=== PATIENT | male | born 1960 | race Caucasian/White ===

== ENCOUNTER 2020-08-01 | Outpatient (REF) | payer BC, SELFPAY | END 2020-08-01 00:01 | disposition home or self-care (01) | LOC: HO.WFDLNP | PROVIDERS: Visit Provider Family Medicine | DX: Z20.822 Contact with and (suspected) exposure to COVID-19 (principal) | CPT/HCPCS: U0003 ==

== ENCOUNTER 2023-12-24 09:51 | Outpatient (AMB) | payer OTHER, SELFPAY ==
--- NOTE | 2023-12-24 09:57 | A.OFFPC_ITS ---
Vital Signs 12/24/23 10:00 Height 5 ft 7.32 in Weight 154 lb BMI 23.9 BP 138/85 Blood Pressure Location Rt radial Position Sitting Respiration 12 Pulse 66 Pulse Source Pulse Oximeter Temp 97.5 F Temp Source Temporal Artery Scan Pulse Oximetry (%) 98 Oxygen Delivery Method Room Air Intake Visit Reasons: Establish Care Intake Note: New patient visit. Trouble sleeping. Manager Floor Required: No Allergies codeine [Codeine] Adverse Reaction (Mild, Verified 12/24/23 10:15) NAUSEA & VOMITING oxycodone [From Percodan] Adverse Reaction (Mild, Verified 12/24/23 10:15) NAUSEA & VOMITING Medication List - Last Reconciled 12/24/23 by NIKOLAI FeldmanP- tadalafil 20 mg PO DAILY PRN Tobacco use date assessed: 12/24/23 Dental Screening Dental Screen Date: 12/24/23 Did you have a dental visit in the last 12 months?: No Did you have a dental problem in the last 6 months where you did not have access to dental care?: No Was dental information given to patient?: Patient has dentist HPI HPI Comments History of Present Illness Details 63 y/o M OA, erectile dysfunction, GERD, BPH, MDD, ASHWIN, HLD Family hx: has 4 children, 1 of methadone overdose Health Maintenance: Colon done at [facility] in [place], thinks done about 7-8 years ago - thinks it was normal. PSA Tdap - will get done today Specialists: [facility] Here today as new patient, no previous medical records, for CPE: Not sleeping, feels tired by 8pm. Can be awake until 4 am at times;reports sleep study done in the past but did not sleep. 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 wakes several times per night to urinate - reports was on BPH meds in the past, ran out of them. However w/o meds noticed no difference. Was ff'd by Uro in the past, reports scope done. No interest in new referral Having heart burn, treated w tums. Feels like worse when he stops working. Belching helps relieve. Has some mumbness in bilat hands. 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 right shoulder injury, improved w/ cortisone injection; would like new referral to ortho for injection. [facility] Medical History (Updated 12/24/23 @ 11:26 by Renee Quiroz [facility]) Depression Anxiety Hx of gastroesophageal reflux (GERD) Arthritis High cholesterol Family History (Updated 12/24/23 @ 10:57 by Shelbi Damon CMA) Mother HTN (hypertension) Hypercholesteremia Breast cancer Father HTN (hypertension) Hypercholesteremia Melanoma Social History (Updated 12/24/23 @ 09:59 by Shelbi Damon CMA) Housing: Other (mobile home) Patient Tobacco Use Status: Never used Tobacco e-Cigarette/Vaping Use: Never Used Second Hand Smoke Exposure: No service: No Current occupational status: employed 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 ) Vision needs: No Questionnaire PHQ-9 Over the last 2 weeks, how often have you been bothered by any of the following problems? 1. Little interest or pleasure in doing things: not at all 2. Feeling down, depressed, or hopeless: several days 3. Trouble falling or staying asleep, or sleeping too much: nearly every day 4. Feeling tired or having little energy: more than half the days 5. Poor appetite or overeating: not at all 6. Feeling bad about yourself - or that you are a failure or have let yourself or your family down: not at all 7. Trouble concentrating on things, such as reading the newspaper or watching television: several days 8. Moving or speaking so slowly that other people could have noticed. Or the opposite - being so fidgety or restless that you have been moving around a lot more than usual: not at all 9. Thoughts that you would be better off or of hurting yourself in some way: not at all Total score: 7 Depression Screening Interpretation: Positive Depression Screening Follow-up: Existing condition Depression Screening Done: Yes 38009 - PHQ-9 Billing: Yes Source: Developed by Drs. Melchor Bhatia, Zayda Rodarte, Brandon Montoya and colleagues, with an educational sal from [employer]. Thrive Questionnaire Date Thrive assessed: 12/24/23 I am a: Patient What is your living situation today?: I have a steady place to live Within the past 12 months, did the food you bought not last and you didn't have the money to get more?: Never true Within the past 12 months, did you worry whether your food would run out before you got money to buy more?: Never true Do you have trouble paying for medicines?: No Do you have trouble getting transportation to medical appointments?: No Do you have trouble paying your heating and electricity bill?: No Do you have trouble taking care of your child, family member or friend?: No Do you have trouble with day-to-day activities such as bathing, preparing meals, shopping, managing finances, etc.?: No Are you currently unemployed and looking for a job?: No Are you interested in more education?: No Please select the resources that you would like help with: None Currently or been in a relationship where the following occur: no concerns reported THRIVE Score: 0 AUDIT C Alcohol Use Questionnaire (AUDIT-C) 1. How often do you have a drink containing alcohol?: 2-3 times a week 2. How many drinks containing alcohol do you have on a typical day when you are drinking?: 1 or 2 3. How often do you have six or more drinks on one occasion?: Never Total Score: 3 Score Reviewed/Action Taken: Yes ASHWIN-7 AMB Questionnaire ASHWIN-7 Date ASHWIN - 7 assessed: 12/24/23 Feeling nervous, anxious, or on edge: 1 = Several days Not being able to stop or control worryin = Several days Worrying too much about different things: 1 = Several days Trouble relaxin = Nearly every day Being so restless that it is hard to sit still: 2 = More than half the days Becoming easily annoyed or irritable: 1 = Several days Feeling afraid as if something awful might happen: 0 = Not at all Total ASHWIN-7 score (0-4 normal; 5-9 mild; 10-14 moderate; 15-21 severe): 9 Source: Developed by Drs. Melchor Bhatia, Zayda Rodarte, Brandon Montoya and colleagues, with an educational sal from [employer]. ASHWIN-7 Assessment Billing ASHWIN-7 Assessment Tool: ASHWIN-7 Assessment 48396 Review of Systems Const Details: Constitutional: Denies fever. Skin: Denies rash. Eye: Denies eye pain. ENMT: Denies sore throat and nasal congestion. Respiratory: Denies shortness of breath and cough. Gastrointestinal: Denies nausea, vomiting or abdominal pain. Cardiovascular: Denies chest pain and syncope. Genitourinary: Denies dysuria. Musculoskeletal: Denies back pain Neurologic: Denies headaches, confusion, and weakness. Psychiatric: Denies suicidal thoughts and substance abuse. Allergy/ Immunologic: Denies impaired immunity. Physical exam (Primary Care) Vital Signs: Last Vital Signs Temp 97.5 F 12/24/23 10:00 Pulse 66 12/24/23 10:00 Resp 12 12/24/23 10:00 BP 138/85 12/24/23 10:00 Pulse Ox 98 12/24/23 10:00 Oxygen Delivery Method Room Air 12/24/23 10:00 BMI result Body Mass Index 23.9 Tobacco/Smoking Status: Tobacco use Status Tobacco use date assessed 12/24/23 12/24/23 10:04 Patient Tobacco Use Status Never used Tobacco 12/24/23 10:04 e-Cigarette/Vaping Use Never Used 12/24/23 10:04 PHQ-9: PHQ-9 Score PHQ-9: Total score 7 12/24/23 11:15 Depression Screening Interpretation: Positive Depression Screening Follow-up: Existing condition Thrive Assessment: Date of Thrive Assessment Date Thrive assessed 12/24/23 12/24/23 10:04 Currently or been in a relationship where the following occur: no concerns reported Advance Care Planning discussion: Exists, not on file Date of discussion: 12/24/23 Forms completed: Health Care Proxy Time spent: 1-15 minutes, not on file Actual minutes spent: 1 Const Other: General: Well developed, well nourished, in no acute distress. Appears stated age. Head: Normocephalic, atraumatic. Eyes: Pupils are equal, round and reactive to light and accommodation. Conjunctivae are clear. Vision grossly normal. Ears: Cerumen impaction bilat Nose: Patent, without discharge. Mouth: There are no ulcers or lesions noted. No inflammation, no post nasal drip, no plaques nor exudates. Neck: Supple, no adenopathy or thyromegaly. Lungs: Clear to auscultation bilaterally. No rales, rhonchi or wheeze noted. Good air flow in all bustamante. Heart: Regular rate and rhythm. No murmurs, click, rubs or gallops are noted. Abdomen: Bowel sounds present in all quadrants. The abdomen is soft, nontender, with no masses or organomegaly noted. No hernias are noted. Musculoskeletal: Joints are nontender, without swelling, redness, or effusions. Range of motion is observed to be normal. Pulses: Peripheral pulses are equal and palpable bilaterally. Extremities: No clubbing, cyanosis nor edema is noted. Hairless bilateral lowe r extremities with varicosities Neurologic: Gait and station normal. Cranial Nerves 2-12 intact. Motor strength grossly symmetrical and intact. No sensory loss. Balance normal. Skin: No rashes, ulcers noted. Turgor is good. Skin color is good. Hair and nails are without abnormalities. Right lower quadrant is a raised skin lesion, wart appearing, brown and pink in color, irregular borders about the size of a grape Psych: Normal eye contact, affect and mood appropriate, and normal interactions. Patient is alert and appropriate to context. Immunizations Boostrix Tdap 2.5 Lf unit-8 mcg-5 Lf/0.5 mL intramuscular syringe Performing Provider: ALON Feldman Performing Location: [facility] Administered by: Shelbi Damon CMA on 12/24/23 11:17 Dose Route Admin Location Dispensed Lot Number Expiration Date NDC Retail Specialist 0.5 mL IM Left Deltoid 0.5 mL [id number] 01/21/26 05865-510-25 Vaioni VIS Given Date VIS Provided VIS Publication Date 12/24/23 Single Vaccine 21 Eligibility Eligibility Date Funding Source Not [facility] Eligible 12/24/23 Private Assessment and Plan Assessment & Plan (1) Encounter for general adult medical examination with abnormal findings: Code(s): Z00.01 - Encounter for general adult medical examination with abnormal findings (2) Right shoulder tendinitis: Comment: refer to ortho Code(s): M77.8 - Other enthesopathies, not elsewhere classified (3) GERD (gastroesophageal reflux disease): Comment: check stool for h pylori and cbc Code(s): K21.9 - Gastro-esophageal reflux disease without esophagitis Qualifiers: Esophagitis presence: without esophagitis Qualified Code(s): K21.9 - Gastro-esophageal reflux disease without esophagitis (4) Immunization due: Code(s): Z23 - Encounter for immunization Plan: tdap today (5) MDD (major depressive disorder), recurrent episode: Comment: declined counseling and meds Code(s): F33.9 - Major depressive disorder, recurrent, unspecified Qualifiers: Major depression episode severity: moderate Qualified Code(s): F33.1 - Major depressive disorder, recurrent, moderate (6) ASHWIN (generalized anxiety disorder): Comment: declined counseling and meds Code(s): F41.1 - Generalized anxiety disorder (7) BPH associated with nocturia: Comment: check PSA was on meds in the past - did not help declined Uro referral Code(s): N40.1 - Benign prostatic hyperplasia with lower urinary tract symptoms; R35.1 - Nocturia (8) Hyperlipidemia: Comment: LDL goal < 70 check profile today, start statin at next visit Code(s): E78.5 - Hyperlipidemia, unspecified Qualifiers: Hyperlipidemia type: mixed hyperlipidemia Qualified Code(s): E78.2 - Mixed hyperlipidemia (9) Erectile dysfunction: Comment: using tadalafil with + effect declined URo referral Code(s): N52.9 - Male erectile dysfunction, unspecified Qualifiers: Erectile dysfunction type: vasculogenic Vasculogenic erectile dysfunction type: due to arterial insufficiency Qualified Code(s): N52.01 - Erectile dysfunction due to arterial insufficiency (10) PVD (peripheral vascular disease): Comment: based on physical exam, hairless BLE + varicose veins maintain BP control, start Statin at next OV, monitor skin integrity Code(s): I73.9 - Peripheral vascular disease, unspecified (11) Skin lesion: Comment: right lower quad of abd refer to Derm Code(s): L98.9 - Disorder of the skin and subcutaneous tissue, unspecified (12) Insomnia: Comment: reports sleep study done in past and negative declined meds check labs and bring back to discuss Code(s): G47.00 - Insomnia, unspecified Qualifiers: Insomnia type: psychophysiologic Qualified Code(s): F51.04 - Psychophysiologic insomnia (13) Paresthesia of both hands: Comment: check b12 levels and iron levels if normal could consider ortho referral ? CTS Code(s): R20.2 - Paresthesia of skin (14) Impacted cerumen, bilateral: Code(s): H61.23 - Impacted cerumen, bilateral Plan: debrox > lavage Orders: Orders Comprehensive Met. Panel Today G47.00 - Insomnia, unspecified, K21.9 - Gastro- esophageal reflux disease without esophagitis, R20.2 - Paresthesia of skin Hemoglobin A1c Today G47.00 - Insomnia, unspecified, K21.9 - Gastro-esophageal reflux disease without esophagitis, R20.2 - Paresthesia of skin LDL Cholesterol Direct Today G47.00 - Insomnia, unspecified, K21.9 - Gastro- esophageal reflux disease without esophagitis, R20.2 - Paresthesia of skin TSH reflex Free T4 Today G47.00 - Insomnia, unspecified, K21.9 - Gastro- esophageal reflux disease without esophagitis, R20.2 - Paresthesia of skin Microalbumin, Random (w Creat) Today G47.00 - Insomnia, unspecified, K21.9 - Gastro-esophageal reflux disease without esophagitis, R20.2 - Paresthesia of skin Vitamin B12 and Folate Today G47.00 - Insomnia, unspecified, K21.9 - Gastro- esophageal reflux disease without esophagitis, R20.2 - Paresthesia of skin Complete Blood Count no Diff Today K21.9 - Gastro-esophageal reflux disease without esophagitis Ferritin Today K21.9 - Gastro-esophageal reflux disease without esophagitis H pylori Ag Stool Today K21.9 - Gastro-esophageal reflux disease without esophagitis TDaP Immunization Today Z23 - Encounter for immunization Vitamin D 1,25 dihydroxy Today G47.00 - Insomnia, unspecified, K21.9 - Gastro- esophageal reflux disease without esophagitis, R20.2 - Paresthesia of skin PSA, Ultra Sensitive Today G47.00 - Insomnia, unspecified, K21.9 - Gastro- esophageal reflux disease without esophagitis, R20.2 - Paresthesia of skin Referrals Dermatology Referral L98.9 - Disorder of the skin and subcutaneous tissue, unspecified Orthopedics Referral M77.8 - Other enthesopathies, not elsewhere classified Medications: New tadalafil 20 mg PO DAILY PRN 30 tabs 3RF erectile dysfunction carbamide peroxide 6.5% (Debrox) 5 drps otic (ears) DAILY 5 days 15 mL 0RF BILAT EARS Patient Instructions: Return to the office in about 2 weeks for ear lavage bilat, discussion of lab results. Sooner as needed. Earwax (Cerumen Impaction) Created in Ears Earwax, called cerumen, is produced by special wax-forming glands located in the skin of the outer one-third of the ear canal. It is normal to have cerumen in ear canal as this waxy substance serves as a self-cleaning agent with protective, lubricating, and antibacterial properties. The absence of earwax may result in dry, itchy ears. Self-cleaning means there is a slow and sld educational aide movement of earwax and skin cells from the eardrum to the ear opening. Old earwax is constantly being transported, assisted by chewing and jaw motion, from the ear canal to the ear opening where, most of the time, it dries, flakes, and falls out. What Are the Symptoms of an Earwax Blockage? Symptoms of an earwax problem may include: Earache Feeling of plugged hearing or fullness in the ear Partial hearing loss that gets worse Tinnitus, ringing, or noises in the ear Itching, odor, or discharge Coughing Pain Infection What Causes Earwax Blockage? When a patient has wax blockage against the eardrum, it is often because they have been probing the ear with such things as cotton-tipped swabs, diann pins, or twisted napkin corners. These objects only push the wax in deeper in the ear canal. Why Is It Dangerous to Use Swabs to Remove Earwax? Wax blockage is one of the most common causes of hearing loss. This is often c aused by attempts to clean the ear with cotton swabs. Most cleaning attempts merely push the wax deeper into the ear canal which is shaped like an hourglass, causing a blockage at the narrowing part of the ear canal. In addition, accidental trauma to the ear drum or ear bones can occur if the swab is pushed too deep. Good intentions to keep ears clean may lessen the ability to hear. The ear is a delicate and complicated body part, including the skin of the ear canal and the eardrum. Therefore, special care should be given to this part of the body. Discontinue the habit of inserting cotton-tipped swabs or other objects into the ear canals. What Are the Treatment Options? Cleaning a working ear can be done by washing it with a soft cloth, but do not insert anything into the ear. Ideally, the ear canals should never have to be cleaned. However, that isn?t always the case. The ears should be cleaned when enough earwax gathers to cause symptoms or to prevent a needed assessment of the ear by your doctor. This condition is call cerumen impaction. Most cases of ear wax blockage respond to home treatments used to soften wax. Patients can try placing a few drops of mineral oil, baby oil, glycerin, or commercial drops in the ear. Detergent drops such as hydrogen peroxide or carbamide peroxide (available in most pharmacies) may also aid in the removal of wax. Irrigation or ear syringing is commonly used for cleaning and can be performed by a physician or at home using a commercially available irrigation kit. Common solutions used for syringing include water and saline, which should be warmed to body temperature to prevent dizziness. Ear syringing is most effective when water, saline, or wax dissolving drops are put in the ear canal 15 to 30 minutes before treatment. Caution is advised to avoid having your ears irrigated if you have diabetes, a hole in the eardrum (perforation), tube in the eardrum, skin problems such as eczema in the ear canal or a weakened immune system. >> If you have been prescribed Debrox, use as directed for 5 nights and return to the office on Day 6 for an ear lavage to remove the wax<< Manual removal of earwax is also effective. This is most often performed by an ENT (ear, nose, and throat) specialist, or sharepoint application architect, using suction or special miniature instruments, and a microscope to magnify the ear canal. Manual removal is preferred if your ear canal is narrow, the eardrum has a perforation or tube, other methods have failed, or if you have skin problems affecting the ear canal, diabetes or a weakened immune system. When Should I Talk to a Doctor? If home treatments do not help, or if wax has accumulated so much that it blocks your ear canal and your ability to hear, an ENT specialist may prescribe eardrops designed to soften wax, or they may wash or vacuum it out. Your ENT specialist may also need to remove the wax under microscopic visualization. If there is a possibility of a perforation in the eardrum, consult a physician prior to trying any [id number] remedies. Putting eardrops or other products in the ear with the presence of an eardrum perforation may cause pain or an infection. Washing water through such a hole could start an infection. If you are prone to repeated wax impaction or use hearing aids, consider seeing your doctor every six to 12 months for a checkup and routine preventive cleaning. What Questions Should I Ask My Doctor? What are the benefits and risks/side effects of different cerumen removal management options: earwax softening products, water irrigation vs. physical removal? Does cerumen accumulation vary with age, gender, familial or dietary intake? How do I manage swimming underwater with cerumen impaction? Should anything be done to the ears to prevent a buildup of earwax? How often should cerumen be removed from the ears? Are ear candles a safe option for removing earwax? Health screenings for men ages 40 to 64 You should visit your health care provider regularly, even if you feel healthy. The purpose of these visits is to: Screen for medical issues Assess your risk for future medical problems Encourage a healthy lifestyle Update vaccinations and other preventive care services Help you get to know your provider in case of an illness Information Even if you feel fine, you should still see your provider for regular checkups. These visits can help you avoid problems in the future. For example, the only way to find out if you have high blood pressure is to have it checked regularly. High blood sugar and high cholesterol level also may not have any symptoms in the early stages. Simple blood tests can check for these conditions. There are specific times when you should see your provider or receive specific health screenings. The [place] Preventive Services Task Force publishes a list of recommended screenings. Below are screening guidelines for men ages 40 to 64. BLOOD PRESSURE SCREENING Have your blood pressure checked at least once every year. Watch for blood pressure screenings in your area. Ask your provider if you can stop in to have your blood pressure checked. Ask your provider if you need your blood pressure checked more often if: You have diabetes, heart disease, kidney problems, or are overweight or have certain other health conditions You have a first-degree relative with high blood pressure You are Black Your blood pressure top number is from 120 to 129 mm Hg, or the bottom number is from 70 to 79 mm Hg If the top number is 130 mm Hg or greater or the bottom number is 80 mm Hg or greater, this is considered stage 1 hypertension. Schedule an appointment with your provider to learn how you can lower your blood pressure. Effects of age on blood pressure CHOLESTEROL SCREENING Cholesterol screening should begin at age 35 for men with no known risk factors for coronary heart disease. Repeat cholesterol screening should take place: Every 5 years for men with normal cholesterol levels More often if changes occur in lifestyle (including weight gain and diet) More often if you have diabetes, heart disease, kidney problems, or certain other conditions COLORECTAL CANCER SCREENING If you are under age 45, talk to your provider about getting screened. You may need to be screened if you have a strong family history of colon cancer or polyps. Screening may also be considered if you have risk factors such as a history of inflammatory bowel disease or polyps. If you are age 45 to 75, you should be screened for colorectal cancer. There are several screening tests available: A stool-based fecal occult blood (gFOBT) or fecal immunochemical test (FIT) every year A stool sDNA test every 1 to 3 years Flexible sigmoidoscopy every 5 years or every 10 years with stool testing FIT done every year CT colonography (virtual colonoscopy) every 5 years Colonoscopy every 10 years You may need a colonoscopy more often if you have risk factors for colorectal cancer, such as: Ulcerative colitis A personal or family history of colorectal cancer A history of growths in your colon called adenomatous polyps DENTAL EXAM Go to the dentist once or twice every year for an exam and cleaning. Your dentist will evaluate if you have a need for more frequent visits. DIABETES SCREENING All adults who do not have risk factors for diabetes should be screened starting at age 35 and repeated every 3 years. If you have other risk factors for diabetes, such as a first degree relative with diabetes, overweight or obesity, high blood pressure, prediabetes, or a history of heart disease, you may be tested more often. If you are overweight and have other risk factors, such as high blood pressure and are planning to become , screening is recommended. EYE EXAM Have an eye exam every 2 to 4 years ages 40 to 54 and every 1 to 3 years ages 55 to 64. Your provider may recommend more frequent eye exams if you have vision problems or glaucoma risk. Have an eye exam that includes an examination of your retina (back of your eye) at least every year if you have diabetes. IMMUNIZATIONS Commonly needed vaccines include: Flu shot: get one every year COVID-19 vaccine: ask your provider what is best for you Tetanus-diphtheria and acellular pertussis (Tdap) vaccine: have as one of your tetanus-diphtheria vaccines if you did not receive it as an adolescent Tetanus-diphtheria: have a booster (or Tdap) every 10 years Varicella vaccine: receive 2 doses if you never had chickenpox or the varicella vaccine and were born in 1980 or after Hepatitis B vaccine: receive 2, 3, or 4 doses, depending on your exact circumstances, if you did not receive these as a child or adolescent, until age 59 Shingles (herpes zoster) vaccine: at or after age 50 Ask your provider if you should receive other immunizations, especially if you have certain medical conditions, such as diabetes or are at increased risk for some diseases such as pneumonia. INFECTIOUS DISEASE SCREENING Screening for hepatitis C: all adults ages 18 to 79 should get a one-time test for hepatitis C. Screening for human immunodeficiency virus (HIV): all people ages 15 to 65 should get a one-time test for HIV. Depending on your lifestyle and medical history, you may need to be screened for infections such as syphilis, chlamydia, and other infections. LUNG CANCER SCREENING You should have an annual screening for lung cancer with low-dose computed tomography (LDCT) if: You are age 50 to 80 years AND You have a 20 pack-year smoking history AND You currently smoke or have quit within the past 15 years OSTEOPOROSIS SCREENING If you are age 50 to 64 and have risk factors for osteoporosis, you should discuss screening with your provider. Risk factors can include long-term steroid use, low body weight, smoking, heavy alcohol use, having a fracture after age 50, or a family history of hip fracture or osteoporosis. Osteoporosis PHYSICAL EXAM All adults should visit their provider from time to time, even if they are healthy. The purpose of these visits is to: Screen for diseases Assess risk of future medical problems Encourage a healthy lifestyle Update vaccinations and other preventive care services Maintain a relationship with a provider in case of an illness Your height, weight, and body mass index (BMI) should be checked at every exam. During your exam, your provider may ask you about: Depression and anxiety Diet and exercise Alcohol and tobacco use Safety, such as use of seat belts and smoke detectors Your medicines and risk for interactions PROSTATE CANCER SCREENING If you're 55 through 69 years old, before having the test, talk to your provider about the pros and cons of having a PSA test. Ask about: Whether screening decreases your chance of dying from prostate cancer. Whether there is any harm from prostate cancer screening, such as side effects from testing or overtreatment of cancer when discovered. Whether you have a higher risk of prostate cancer than others. If you are age 55 or younger, screening is not generally recommended. You should talk with your provider about if you have a higher risk for prostate cancer. Risk factors include: Having a family history of prostate cancer (especially a brother or father) Being If you choose to be tested, the PSA blood test is repeated over time (yearly or less often), though the best frequency is not known. Prostate examinations are no longer routinely done on men with no symptoms. Prostate cancer SKIN EXAM Your provider may check your skin for signs of skin cancer, especially if you're at high risk. People at high risk include those who have had skin cancer before, have close relatives with skin cancer, or have a weakened immune system. TESTICULAR EXAM The [place] Preventive Services Task Force (USPSTF) now recommends against performing testicular self-exams. Doing testicular self-exams has been shown to have little to no benefit. Review Patient declined Colonoscopy: 12/24/23 Patient declined Colon Cancer Screen Lab: 12/24/23 Coding Level of Care Code New Pt Prev Care 40-64y(74274) Diagnoses Encounter for general adult medical examination with abnormal findings Z00.01 Right shoulder tendinitis M77.8 Gastroesophageal reflux disease without esophagitis K21.9 Esophagitis presence: without esophagitis Immunization due Z23 Moderate episode of recurrent major depressive disorder F33.1 Major depression episode severity: moderate ASHWIN (generalized anxiety disorder) F41.1 BPH associated with nocturia N40.1; R35.1 Mixed hyperlipidemia E78.2 Hyperlipidemia type: mixed hyperlipidemia Erectile dysfunction due to arterial insufficiency N52.01 Erectile dysfunction type: vasculogenic Vasculogenic erectile dysfunction type: due to arterial insufficiency PVD (peripheral vascular disease) I73.9 Skin lesion L98.9 Psychophysiological insomnia F51.04 Insomnia type: psychophysiologic Paresthesia of both hands R20.2 Impacted cerumen, bilateral H61.23 Additional Codes ASHWIN-7 Assessment Billing - ASHWIN-7 Assessment Tool: ASHWIN-7 Assessment [id number] ([id number]) Vital Signs *Quality* - Advance Care Planning discussion: Exists, not on file ([id number]) Vital Signs *Quality* - Time spent: 1-15 minutes, not on file ([id number])
[2023-12-24 10:00] VITALS: BP 138/85; PULSE 66; RESP 12; TEMP 36.4; O2SAT 98; BMI 23.9
== END 2023-12-24 10:36 | disposition home or self-care (01) ==
PROVIDERS: PCP Hospitalist; Visit Provider Nurse Practitioner Family
DX: Z00.01 Encounter for general adult medical examination with abnormal findings (principal); N52.01 Erectile dysfunction due to arterial insufficiency; R35.1 Nocturia; F33.1 Major depressive disorder, recurrent, moderate; Z23 Encounter for immunization; I73.9 Peripheral vascular disease, unspecified; M77.8 Other enthesopathies, not elsewhere classified; K21.9 Gastro-esophageal reflux disease without esophagitis; E78.2 Mixed hyperlipidemia; F41.1 Generalized anxiety disorder; N40.1 Benign prostatic hyperplasia with lower urinary tract symptoms; L98.9 Disorder of the skin and subcutaneous tissue, unspecified
CPT/HCPCS: 1124F; 90471; 90715; 99204; 99386

== ENCOUNTER 2023-12-24 10:43 | Outpatient (REF) | payer OTHER, SELFPAY ==
[2023-12-24 14:41] LABS: Hematocrit 46.6 % (42.0-52.0); Hemoglobin 15.8 g/dl (14.0-18.0); Mean Corpuscular HGB Conc 33.9 g/dl (31.0-36.0); Mean Corpuscular Hemoglobin 31.3 pg (27.0-33.0); Mean Corpuscular Volume 92.5 fL (80.0-98.0); Mean Platelet Volume 10.6 fL (9.4-12.4); Platelet Count 249 X10*3/uL (160-400); Red Blood Count 5.04 X10*6/uL (4.60-5.80); Red Cell Distribution Width 13.8 % (11.0-16.0); White Blood Count 5.1 X10*3/uL (4.8-10.8)
[2023-12-24 14:51] LABS: Estimated Average Glucose 100 mg/dL; Hemoglobin A1C 126.5441 umol/L; Hemoglobin A1c % 5.1 % (<6.0)
[2023-12-24 15:17] LABS: Alanine Aminotransferase 26 U/L (0-40); Albumin Level 4.1 g/dL (3.5-5.0); Alkaline Phosphatase 111 U/L (39-117); Anion Gap 12 (12-20); Aspartate Amino Transferase 22 U/L (5-37); Bilirubin Total 0.6 mg/dL (0.0-1.0); Blood Urea Nitrogen 18 mg/dL (9-16); Calcium 9.6 mg/dL (8.4-10.2); Carbon Dioxide 25 mmol/L (22-29); Chloride 108 mmol/L (96-108); Estimated Glomerular Filt Rate > 60; Glucose Random 89 mg/dL (60-115); Potassium 4.1 mmol/L (3.3-5.1); Sodium 141 mmol/L (135-145); Total Protein 7.2 g/dL (6.5-8.0)
[2023-12-24 15:29] LABS: Ferritin 128 ng/mL (20-250); TSH reflex Free T4 1.88 uIU/mL (0.32-4.0)
[2023-12-24 15:40] LABS: Folate 13.1 ng/mL (> or = 4.0); Vitamin B12 612 pg/mL (200-900)
[2023-12-24 15:46] LABS: Creatinine Urine 120.79 mg/dL; Microalbumin Urine < 5.0 mg/L
[2024-01-03 11:19] LABS: LDL Cholesterol Direct 143; Vit D (1,25-Dihydroxy) Total 53
[2024-01-03 11:20] LABS: VITAMIN D (1,25 OH) D3 53; Vitamin D (1,25 OH) D2 <8
[2024-01-03 11:21] LABS: PSA, Ultra Sensitive 0.52
== END 2023-12-24 10:44 | disposition home or self-care (01) ==
LOC: HO.WFDLDS 10:43
PROVIDERS: Visit Provider Nurse Practitioner Family
DX: K21.9 Gastro-esophageal reflux disease without esophagitis (principal); R20.2 Paresthesia of skin; G47.00 Insomnia, unspecified
CPT/HCPCS: 36415; 80053; 82043; 82570; 82607; 82652; 82728; 82746; 83036; 83721; 84153; 84443; 85027

== ENCOUNTER 2024-01-07 08:06 | Outpatient (AMB) | payer OTHER, SELFPAY ==
--- NOTE | 2024-01-07 08:14 | MHC.OFFVIS ---
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 The patient states that his pain has gotten worse over the last 3-4 years in spite of continued non operative treatments. He has had 3 cortisone injections given into his right shoulder which gave him only temporary relief. He reports weakness when lifting his right hand above shoulder height. Has done formal physical therapy as well which gave him minimal relief. Has failed the last 6 weeks of conservative treatment. He has tried ibuprofen and Tylenol which gave him minimal relief. Allergies codeine [Codeine] Adverse Reaction (Mild, Verified 01/07/24 08:18) NAUSEA & VOMITING oxycodone [From Percodan] Adverse Reaction (Mild, Verified 01/07/24 08:18) NAUSEA & VOMITING Medication List - Last Reconciled 01/07/24 by Anderson Hernandez MD carbamide peroxide 6.5% (Debrox) 5 drps otic (ears) DAILY 5 days meloxicam 15 mg PO DAILY PRN tadalafil 20 mg PO DAILY PRN PFSH Medical History (Updated 01/03/24 @ 12:42 by Anderson Hernandez MD) Depression Anxiety Hx of gastroesophageal reflux (GERD) Arthritis High cholesterol Family History (Updated 12/24/23 @ 10:57 by Shelbi Damon CMA) Mother HTN (hypertension) Hypercholesteremia Breast cancer Father HTN (hypertension) Hypercholesteremia Melanoma Social History (Updated 12/24/23 @ 09:59 by Shelbi Damon CMA) Housing: Other (mobile home) Patient Tobacco Use Status: Never used Tobacco e-Cigarette/Vaping Use: Never Used Second Hand Smoke Exposure: No service: No Current occupational status: employed 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 ) Vision needs: No Physical Exam Vital Signs: BMI result Body Mass Index 24.1 Const Other: Well-nourished well-developed very friendly male awake alert and oriented x3 in no acute distress Extrem Other: Bilateral upper extremity examination shows good capillary refill, no skin lesions noted, normal sensation light touch Right shoulder examination shows slightly decreased range of motion when compared to his left shoulder, 4/5 strength with supraspinatus testing, positive impingement signs, tenderness over his acromioclavicular joint, no instability Results Reviewed Results Reviewed: X-rays of the patient's right shoulder show severe acromioclavicular joint narrowing, a type 3 acromion, no acute bony abnormalities Assessment & Plan Assessment & Plan (1) Right shoulder pain: Code(s): M25.511 - Pain in right shoulder Category: Medical Plan Mr. Plunkett presents with progressively worsening right shoulder pain and weakness due to impingement syndrome and possible full-thickness rotator cuff tearing. Thus, I will send the patient for an MRI of his right shoulder for further evaluation. I will see him back once the MRI is completed to discuss the findings and treatment options. He will continue with his range of motion exercises in the meantime. Feel free to call me at any time should questions regarding his orthopedic management arise. Thank you very much for asking me to see this very friendly gentleman. I spent 21 minutes in reviewing the patient's records and imaging studies, seeing the patient and documenting in the medical record. Orders: Orders XR shoulder RT min 2V Today M25.511 - Pain in right shoulder MR shoulder RT wo con Today M25.511 - Pain in right shoulder Medications: New meloxicam 15 mg PO DAILY PRN 30 tabs 2RF pain Coding Level of Care Code New Pt Level 3 (04024) Diagnoses Right shoulder pain M25.511
[2024-01-07 08:15] VITALS: BMI 24.1
== END 2024-01-07 08:30 | disposition home or self-care (01) ==
PROVIDERS: PCP Hospitalist; Visit Provider Orthopaedic Surgery
DX: M25.511 Pain in right shoulder (principal)
CPT/HCPCS: 99203

== ENCOUNTER 2024-01-07 10:21 | Outpatient (REF) | payer OTHER, SELFPAY ==
--- NOTE | ~2024-01-07 | XR_ITS ---
EXAMINATION: XR SHOULDER, RIGHT CLINICAL INFORMATION: Pain in right shoulder COMPARISON: None available. TECHNIQUE: AP and five-view of the right shoulder. FINDINGS: The bones and soft tissues are normal. No fracture. Glenohumeral and acromioclavicular alignment is anatomic with normal joint space. No abnormal soft tissue calcifications. XR/XR shoulder RT min 2V IMPRESSION: Normal right shoulder.
== END 2024-01-07 10:22 | disposition home or self-care (01) ==
LOC: HO.HOSX 10:21
PROVIDERS: Visit Provider Orthopaedic Surgery
DX: M75.41 Impingement syndrome of right shoulder (principal)
CPT/HCPCS: 73030; 99202

== ENCOUNTER 2024-01-08 09:08 | Outpatient (AMB) | payer OTHER, SELFPAY ==
--- NOTE | 2024-01-08 09:21 | A.OFFPC_ITS ---
Vital Signs 01/08/24 09:23 Weight 198 lb BP 118/66 Blood Pressure Location Lt brachial Position Sitting Pulse 62 Pulse Source Pulse Oximeter Pulse Oximetry (%) 95 Oxygen Delivery Method Room Air Intake Visit Reasons: 2 weeks 30 min bilat ear lavage Intake Note: pt here for bilat ear lavage. Cfo Controller Required: No Allergies codeine [Codeine] Adverse Reaction (Mild, Verified 01/08/24 09:46) NAUSEA & VOMITING oxycodone [From Percodan] Adverse Reaction (Mild, Verified 01/08/24 09:46) NAUSEA & VOMITING Medication List - Last Reconciled 01/08/24 by GABRIEL Feldman-CLARKE carbamide peroxide 6.5% (Debrox) 5 drps otic (ears) DAILY 5 days meloxicam 15 mg PO DAILY PRN tadalafil 20 mg PO DAILY PRN Tobacco use date assessed: 12/24/23 Dental Screening Dental Screen Date: 12/24/23 HPI HPI Comments History of Present Illness Details 63 y/o M OA, erectile dysfunction, GERD, BPH, MDD, ASHWIN, HLD, PVD Family hx: has 4 children, 1 of methadone overdose Health Maintenance: Colon done at [facility] in [place], thinks done about 7-8 years ago - thinks it was normal. PSA 12/2023 WNL Tdap - 11/2023 Specialists: [facility] Here today for bilat ear lavage and to follow up on his labs. Since this office visit he has been able to use Debrox in both ears. Review of his labs done 12/24/2023 are normal with the exception of an elevated LDL at 143. Reports that he has not been able to tolerate statins in the past. Unsure if he is ever tried Zetia however he is willing to try this today. [facility] Medical History (Updated 01/08/24 @ 12:57 by ALON Feldman) Depression Anxiety Hx of gastroesophageal reflux (GERD) Arthritis High cholesterol Family History (Updated 12/24/23 @ 10:57 by Shelbi Damon CMA) Mother HTN (hypertension) Hypercholesteremia Breast cancer Father HTN (hypertension) Hypercholesteremia Melanoma Social History (Updated 12/24/23 @ 09:59 by Shelbi Damon CMA) Housing: Other (mobile home) Patient Tobacco Use Status: Never used Tobacco e-Cigarette/Vaping Use: Never Used Second Hand Smoke Exposure: No service: No Current occupational status: employed Current occupation: [employer] Current occupational exposures/hazards: No Cognitive needs: No Hearing needs: Yes (can see close. ) Vision needs: No Questionnaire Thrive Questionnaire Date Thrive assessed: 12/24/23 ASHWIN-7 AMB Questionnaire ASHWIN-7 Date ASHWIN - 7 assessed: 12/24/23 Source: Developed by Drs. Melchor Bhatia, Zayda Rodarte, Brandon Montoya and colleagues, with an educational sal from [employer]. Review of Systems Const All systems reviewed & are unremarkable except as noted in HPI and below Physical exam (Primary Care) Vital Signs: Last Vital Signs Pulse 62 01/08/24 09:23 BP 118/66 01/08/24 09:23 Pulse Ox 95 01/08/24 09:23 Oxygen Delivery Method Room Air 01/08/24 09:23 Tobacco/Smoking Status: Tobacco use Status Tobacco use date assessed 12/24/23 01/08/24 09:25 Patient Tobacco Use Status Never used Tobacco 01/08/24 09:25 e-Cigarette/Vaping Use Never Used 01/08/24 09:25 Thrive Assessment: Date of Thrive Assessment Date Thrive assessed 12/24/23 01/08/24 09:25 Const Other: Awake alert oriented TM intact and clear bilat status post cerumen removal Bilateral lower extremities hairless Office Procedures Cerumen Removal From which ear canal was the cerumen removed: bilateral Removal: irrigation Notes: patient tolerated procedure well, no complications and ear canal clear [id number] Irrigation/Lavage Assessment and Plan Assessment & Plan (1) Hyperlipidemia: Comment: LDL goal < 70 Code(s): E78.5 - Hyperlipidemia, unspecified Qualifiers: Hyperlipidemia type: mixed hyperlipidemia Qualified Code(s): E78.2 - Mixed hyperlipidemia (2) Impacted cerumen, bilateral: Code(s): H61.23 - Impacted cerumen, bilateral (3) PVD (peripheral vascular disease): Comment: based on physical exam, hairless BLE + varicose veins maintain BP control, start zetia [nontolerant of statin] at next OV, monitor skin integrity Code(s): I73.9 - Peripheral vascular disease, unspecified Plan Total time spent caring for the patient today was 40 minutes. This includes time spent before the visit reviewing the chart, time spent during the visit, and time spent after the visit on documentation This note is constructed using voice recognition software. While every effort has been made to ensure accuracy in log haul operator, still errors may have been included Sometimes, these errors may affect the content or meaning of the given sentence . Orders: Orders Lipid Panel 03/22/24 E78.2 - Mixed hyperlipidemia, I73.9 - Peripheral vascular disease, unspecified Comprehensive Met. Panel 03/22/24 E78.2 - Mixed hyperlipidemia, I73.9 - Peripheral vascular disease, unspecified Medications: New ezetimibe (Zetia) 10 mg PO DAILY 90 tabs 0RF Patient Instructions: Started Zetia 10 mg daily. Repeat fasting labs in 3 months. LDL goal less than 70 Status post cerumen impaction successful. Return to the office in 3 months to follow up on cholesterol. Sooner as needed. Coding Level of Care Code Est Pt Level 5 (02383) Diagnoses Mixed hyperlipidemia E78.2 Hyperlipidemia type: mixed hyperlipidemia Impacted cerumen, bilateral H61.23 PVD (peripheral vascular disease) I73.9 CPT Codes Office Procedure - CPT: 76722-Irl Irrigation/Lavage ([id number])
[2024-01-08 09:23] VITALS: BP 118/66; PULSE 62; O2SAT 95
== END 2024-01-08 10:03 | disposition home or self-care (01) ==
PROVIDERS: PCP Nurse Practitioner Family; Visit Provider Nurse Practitioner Family
DX: E78.2 Mixed hyperlipidemia (principal); H61.23 Impacted cerumen, bilateral; I73.9 Peripheral vascular disease, unspecified
CPT/HCPCS: 69209; 99215

== ENCOUNTER 2024-03-12 10:10 | Outpatient (AMB) | payer OTHER, SELFPAY ==
--- NOTE | 2024-03-12 10:15 | MHC.OFFVIS ---
Vital Signs 03/12/24 10:17 Height 5 ft 8 in Weight 198 lb BMI 30.1 Intake Visit Reasons: Bilateral hand numbness, Right shoulder pain, Neck pain Intake Note: Tino is a 63 year old male who presents with complaints of progressively worsening neck pain which radiates down both of his arms as well as right shoulder pain and numbness and tingling in both of his hands. The patient states that his symptoms have gotten worse over the last few years. He has failed the last 3 months of conservative treatment which has included a home exercise program as well as Tylenol and anti-inflammatory medicines. The patient reports mild weakness when lifting his right hand above shoulder height. The patient states that at night he has difficulty sleeping because both of his hands are ?completely numb?. He has done physical therapy which aggravated his symptoms. He did have a cortisone injection given into his right shoulder several years ago which gave him temporary relief. Allergies codeine [Codeine] Adverse Reaction (Mild, Verified 03/12/24 10:22) NAUSEA & VOMITING oxycodone [From Percodan] Adverse Reaction (Mild, Verified 03/12/24 10:22) NAUSEA & VOMITING Medication List - Last Reconciled 03/12/24 by Anderson Hernandez MD carbamide peroxide 6.5% (Debrox) 5 drps otic (ears) DAILY 5 days ezetimibe (Zetia) 10 mg PO DAILY meloxicam 15 mg PO DAILY PRN tadalafil 20 mg PO DAILY PRN PFSH Medical History Depression Anxiety Hx of gastroesophageal reflux (GERD) Arthritis High cholesterol Family History Mother HTN (hypertension) Hypercholesteremia Breast cancer Father HTN (hypertension) Hypercholesteremia Melanoma Social History Housing: Other (mobile home) Patient Tobacco Use Status: Never used Tobacco e-Cigarette/Vaping Use: Never Used Second Hand Smoke Exposure: No service: No Current occupational status: employed 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 ) Vision needs: No Physical Exam Vital Signs: BMI result Body Mass Index 30.1 Const Other: Well-nourished well-developed very friendly male awake alert and oriented x3 in no acute distress Neck Other: Cervical spine examination shows bilateral paraspinal muscle tenderness, positive Spurling's test, 4/5 strength with testing of his bilateral biceps and wrist extensors Extrem Other: Right shoulder examination shows decreased range of motion when compared to his left shoulder, 4+ out of 5 strength with supraspinatus testing, positive impingement signs, tenderness over his acromioclavicular joint, no instability Bilateral wrist examination shows positive Tinel's test over his carpal tunnels, mild to moderate thenar muscle wasting, decreased sensation to light touch along his median nerve distributions Office Procedures Joint Injection/Aspiration Joint Injection/Aspiration Primary Site: right shoulder Prep: site was prepped using aseptic technique Injected: 40 mg of, DepoMedrol and 1% plain lidocaine Procedure: The patient tolerated the procedure well Coding 12449 - Large joint Procedure code (CPT) selection complete Results Reviewed Results Reviewed: X-rays of the patient's right shoulder show severe acromioclavicular joint narrowing, a type 3 acromion, no acute bony abnormalities Assessment & Plan Assessment & Plan (1) Bilateral carpal tunnel syndrome: Code(s): G56.03 - Carpal tunnel syndrome, bilateral upper limbs Category: Medical (2) Neck pain, bilateral: Code(s): M54.2 - Cervicalgia Category: Medical Plan: Mr. Plunkett presents with progressively worsening neck pain which radiates into both of his arms as well as bilateral upper extremity weakness most likely due to cervical stenosis or a disc herniation. Thus, I will send the patient for an MRI of his cervical spine for further evaluation. I will contact him by phone once the MRI results are available. The patient also has right shoulder pain and weakness due to impingement syndrome and possible rotator cuff tearing. The risks and benefits of a right shoulder cortisone injection were discussed at length with the patient. The patient wished to proceed. He tolerated the injection well. He will continue with his range of motion exercises to prevent stiffness. The patient also has symptoms consistent with bilateral carpal tunnel syndrome. Thus, I will send him for EMG evaluation of both of his upper extremities for further evaluation. Feel free to call me at any time should questions regarding his orthopedic management arise. (3) Bilateral hand numbness: Code(s): R20.0 - Anesthesia of skin (4) Right shoulder pain: Code(s): M25.511 - Pain in right shoulder Category: Medical (5) Impingement of right shoulder: Code(s): M25.811 - Other specified joint disorders, right shoulder Category: Medical Plan I spent 21 minutes in reviewing the patient's records and imaging studies, seeing the patient and documenting in the medical record. Orders: Orders NE electromyogram (EMG) Today G56.03 - Carpal tunnel syndrome, bilateral upper limbs MR cervical spine wo con Today M54.2 - Cervicalgia AMB Joint Injection/Aspiration Today M25.811 - Other specified joint disorders, right shoulder Coding Level of Care Code Est Pt Level 3 (93794) Diagnoses Bilateral carpal tunnel syndrome G56.03 Neck pain, bilateral M54.2 Bilateral hand numbness R20.0 Right shoulder pain M25.511 Impingement of right shoulder M25.811 CPT Codes Coding - 80771 Large joint: 43802 - Large joint ([id number])
[2024-03-12 10:17] VITALS: BMI 30.1
== END 2024-03-12 10:44 | disposition home or self-care (01) ==
PROVIDERS: PCP Nurse Practitioner Family; Visit Provider Orthopaedic Surgery
DX: G56.03 Carpal tunnel syndrome, bilateral upper limbs (principal); M54.2 Cervicalgia; R20.0 Anesthesia of skin; M25.511 Pain in right shoulder; M25.811 Other specified joint disorders, right shoulder
CPT/HCPCS: 20610; 99213

== ENCOUNTER → 2024-03-12 10:10 | Outpatient (BNVA) | payer OTHER, SELFPAY | PROVIDERS: PCP Nurse Practitioner Family; Visit Provider Orthopaedic Surgery | DX: M25.511 Pain in right shoulder (principal); M25.811 Other specified joint disorders, right shoulder; M54.2 Cervicalgia; G56.03 Carpal tunnel syndrome, bilateral upper limbs | CPT/HCPCS: 20610; 99212; J1010 ==

== ENCOUNTER 2024-04-07 07:54 | Outpatient (REF) | payer OTHER, SELFPAY ==
[2024-04-07 11:59] LABS: Alanine Aminotransferase 28 U/L (0-40); Albumin Level 4.1 g/dL (3.5-5.0); Alkaline Phosphatase 96 U/L (39-117); Anion Gap 12 (12-20); Aspartate Amino Transferase 27 U/L (5-37); Bilirubin Total 0.8 mg/dL (0.0-1.0); Blood Urea Nitrogen 19 mg/dL (9-16); Calcium 9.6 mg/dL (8.4-10.2); Carbon Dioxide 27 mmol/L (22-29); Chloride 108 mmol/L (96-108); Cholesterol 172 mg/dL (<200); Estimated Glomerular Filt Rate > 60; Glucose Random 99 mg/dL (60-115); HDL Cholesterol 65 mg/dL (>40); LDL Cholesterol Calculated 94 mg/dL (<100); Potassium 4.3 mmol/L (3.3-5.1); Sodium 143 mmol/L (135-145); Total Protein 7.1 g/dL (6.5-8.0); Triglycerides 68 mg/dL (<150)
== END 2024-04-07 07:55 | disposition home or self-care (01) ==
LOC: HO.WFDLDS 07:54
PROVIDERS: Visit Provider Nurse Practitioner Family
DX: I73.9 Peripheral vascular disease, unspecified (principal); E78.2 Mixed hyperlipidemia
CPT/HCPCS: 36415; 80053; 80061

== ENCOUNTER 2024-04-09 14:52 | Outpatient (REF) | payer OTHER, SELFPAY ==
--- NOTE | 2024-04-09 14:55 | EMG_ITS ---
Chief complaint: Numbness both hands especially at night Reason for referral: Evaluate for Carpal Tunnel Syndrome Referred by: Dr. Hernandez Procedure done: Bilateral upper extremities NCS/EMG Precautions and/or limitations: None The limb temperature was monitored continuously and remained between 32-36 degrees C during the performance of the NCS. Nerve Conduction Studies Anti Sensory Summary Table ?Stim Site NR Onset (ms) Norm Onset (ms) Peak (ms) Norm Peak (ms) O-P Amp (?V) Norm O-P Amp Site1 Site2 Delta-0 (ms) Dist (cm) Rogelio (m/s) Norm Rogelio (m/s) Left Median Anti Sensory (2nd Digit) Wrist NR <3.6 >10 Wrist 2nd Digit 14.0 Right Median Anti Sensory (2nd Digit) Wrist NR <3.6 >10 Wrist 2nd Digit 14.0 Right Radial Anti Sensory (Thumb) Forearm ? 1.2 1.9 <3.1 16.4 Forearm Thumb 1.2 0.0 Left Ulnar Anti Sensory (5th Digit) Wrist ? 2.3 2.9 <3.7 6.3 >15.0 Wrist 5th Digit 2.3 14.0 61 Right Ulnar Anti Sensory (5th Digit) Wrist ? 1.9 2.9 <3.7 7.6 >15.0 Wrist 5th Digit 1.9 14.0 74 Motor Summary Table ?Stim Site NR Onset (ms) Norm Onset (ms) O-P Amp (mV) Norm O-P Amp iAmp (mV) Amp (1st) (%) Site1 Site2 Delta-0 (ms) Dist (cm) Rogelio (m/s) Norm Rogelio (m/s) Left Median Motor (Abd Poll Brev) Wrist ? 7.9 <3.9 3.9 >4.5 4.5 100.0 Elbow Wrist 4.6 23.5 51 >45 Elbow ? 12.5 3.8 4.6 97.4 Right Median Motor (Abd Poll Brev) Wrist ? 5.7 <3.9 4.4 >4.5 5.0 100.0 Elbow Wrist 4.4 23.5 53 >45 Elbow ? 10.1 3.6 4.1 81.8 Left Ulnar Motor (Abd Dig Minimi) Wrist ? 2.5 <3.0 8.7 >5 11.2 100.0 B Elbow Wrist 3.5 21.0 60 >45 B Elbow ? 6.0 7.8 10.1 89.7 A Elbow B Elbow 1.7 10.0 59 >45 A Elbow ? 7.7 7.9 10.6 90.8 Right Ulnar Motor (Abd Dig Minimi) Wrist ? 2.7 <3.0 8.5 >5 11.0 100.0 B Elbow Wrist 3.6 23.0 64 >45 B Elbow ? 6.3 8.2 10.9 96.5 A Elbow B Elbow 1.8 10.0 56 >45 A Elbow ? 8.1 8.0 10.7 94.1 EMG ?Side Muscle Nerve Root Ins Act Fibs Psw Amp Dur Poly Recrt Int Pat Comment Right 1stDorInt Ulnar C8-T1 Nml Nml Nml Nml Nml 0 Nml Complete Right FlexCarRad Median C6-7 Nml Nml Nml Nml Nml 0 Nml Complete Right Biceps Musculocut C5-6 Nml Nml Nml Nml Nml 0 Nml Complete Right Triceps Radial C6-7-8 Nml Nml Nml Nml Nml 0 Nml Complete Right Deltoid Axillary C5-6 Nml Nml Nml Nml Nml 0 Nml Complete Left 1stDorInt Ulnar C8-T1 Nml Nml Nml Nml Nml 0 Nml Complete Left FlexCarRad Median C6-7 Nml Nml Nml Nml Nml 0 Nml Complete Left Biceps Musculocut C5-6 Nml Nml Nml Nml Nml 0 Nml Complete Left Triceps Radial C6-7-8 Nml Nml Nml Nml Nml 0 Nml Complete Left Deltoid Axillary C5-6 Nml Nml Nml Nml Nml 0 Nml Complete FINDINGS: Bilateral median motor nerves showed prolonged distal latency, small amplitude and normal conduction velocity. Bilateral median sensory nerves showed absent response. All other nerves tested were within normal. Concentric needle EMG was performed in selected muscles of the upper extremity. Study did not reveal signs of electric abnormalities as shown in the table above. IMPRESSION: 1. This is an abnormal study. 2. There is electrodiagnostic evidence for bilateral moderate-severe median neuropathy at the wrist, consistent with carpal tunnel syndrome. 3. There is no electrodiagnostic evidence for ulnar neuropathy, brachial plexopathy, or cervical radiculopathy. Thank you for your kind referral. Carol Gonzalez MD, ALEKSANDAR Board Certified, [place] [employer] and [employer] (ABPMR) Board Certified, [place] Board of Electrodiagnostic [employer] (ABEM) CODIN [phone] x 2 MTDD
== END 2024-04-09 14:53 | disposition home or self-care (01) ==
LOC: HO.NEURO 14:52
PROVIDERS: PCP Nurse Practitioner Family; Visit Provider Orthopaedic Surgery
DX: G56.03 Carpal tunnel syndrome, bilateral upper limbs (principal)
CPT/HCPCS: 95886; 95911

== ENCOUNTER → 2024-04-09 14:55 | Outpatient (BNV) | payer OTHER, SELFPAY | PROVIDERS: PCP Nurse Practitioner Family; Visit Provider Physical Medicine & Rehabilitation | DX: G56.03 Carpal tunnel syndrome, bilateral upper limbs (principal) | CPT/HCPCS: 95886; 95911 ==

== ENCOUNTER 2024-04-10 08:20 | Outpatient (AMB) | payer OTHER, SELFPAY ==
--- NOTE | 2024-04-10 08:22 | MHC.PC.OV ---
Vital Signs 04/10/24 08:25 Height 5 ft 8 in Weight 197 lb BMI 30.0 BP 124/70 Blood Pressure Location Lt brachial Position Sitting Respiration 14 Pulse 65 Pulse Source Pulse Oximeter Pulse Oximetry (%) 96 Oxygen Delivery Method Room Air Intake Visit Reasons: 3 MONTHS 30 MIN FU LIPIDS, Intake Note: follow up on labs Allergies codeine [Codeine] Adverse Reaction (Mild, Verified 04/10/24 09:02) NAUSEA & VOMITING oxycodone [From Percodan] Adverse Reaction (Mild, Verified 04/10/24 09:02) NAUSEA & VOMITING Medication List - Last Reconciled 04/10/24 by Renee Quiroz, REINFORCED CONCRETE INSPECTOR- ezetimibe (Zetia) 10 mg PO DAILY meloxicam 15 mg PO DAILY PRN tadalafil 20 mg PO DAILY PRN Tobacco use date assessed: 12/24/23 Dental Screening Dental Screen Date: 04/10/24 Did you have a dental visit in the last 12 months?: Yes Did you have a dental problem in the last 6 months where you did not have access to dental care?: No Was dental information given to patient?: Patient has dentist HPI HPI Comments History of Present Illness Details 63 y/o M OA, erectile dysfunction, GERD, BPH, MDD, ASHWIN, HLD, PVD Family hx: has 4 children, 1 of methadone overdose Health Maintenance: Colon done at [facility] in [place], thinks done about 7-8 years ago - thinks it was normal. PSA 12/2023 WNL Tdap - 11/2023 Specialists: Fabrizio Avila Here today for routine fu of lipids, tolerant and compliant w/ zetia. The following was reviewed with him today: 12/23/33 LDL 143, normal PSA and vIT D Labs from 04/07/2024 show normal electrolytes, normal renal function, random glucose 99, normal calcium, normal LFTs, total cholesterol 172, triglycerides 68, LDL 94, HDL 65. The LDL was 143 prior to the start of Zetia Will be having surgery for bilat CTS. R shoulder spur that will likely need surgery. This is being managed by Al Avila, consults reviewed. Lesion on right abd, referred to Derm but soonest appt in Aug. It has gotten bigger. Dad with melanoma. He is having lots of anxiety and would like this looked at Poor sleep, pain and freq urination as the cause, does have some racing thoughts. Does not like to take meds, rodrigo mental health meds. Tried 3 prostate meds in the past, most recent 1 year ago w/o effect. Exam Awake alert oriented Regular rate and rhythm Lung sounds clear to auscultation bilat Right lower quadrant is a raised skin lesion, wart appearing, brown and pink in color, irregular borders about the size of a grape Plan Refer to Gen Surg for RLQ lesion, as derm is not able to see him until Aug 2024. Cont f/u Ortho for surgeries Continue Zetia as this is working well for your cholesterol Start oxybutynin XL 5 mg p.o. daily, return to the office in 8 weeks to follow up on the effectiveness. Titrate to effect or consider starting other medications. Labs placed to be done 1 week before his annual physical in December. This note is constructed using voice recognition software. While every effort has been made to ensure accuracy in handtools repairer, still errors may have been included Sometimes, these errors may affect the content or meaning of the given sentence . Total time spent caring for the patient today was 30 minutes. This includes time spent before the visit reviewing the chart, time spent during the visit, and time spent after the visit on documentation [facility] Medical History Depression Anxiety Hx of gastroesophageal reflux (GERD) Arthritis High cholesterol Family History Mother HTN (hypertension) Hypercholesteremia Breast cancer Father HTN (hypertension) Hypercholesteremia Melanoma Social History Housing: Other (mobile home) Patient Tobacco Use Status: Never used Tobacco e-Cigarette/Vaping Use: Never Used Second Hand Smoke Exposure: No service: No Current occupational status: employed 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 ) Vision needs: No Questionnaire PHQ-9 Over the last 2 weeks, how often have you been bothered by any of the following problems? 1. Little interest or pleasure in doing things: several days 2. Feeling down, depressed, or hopeless: several days 3. Trouble falling or staying asleep, or sleeping too much: nearly every day 4. Feeling tired or having little energy: nearly every day 5. Poor appetite or overeating: not at all 6. Feeling bad about yourself - or that you are a failure or have let yourself or your family down: not at all 7. Trouble concentrating on things, such as reading the newspaper or watching television: not at all 8. Moving or speaking so slowly that other people could have noticed. Or the opposite - being so fidgety or restless that you have been moving around a lot more than usual: more than half the days 9. Thoughts that you would be better off or of hurting yourself in some way: not at all Total score: 10 [id number] - PHQ-9 Billing: Yes Source: Developed by Drs. Melchor Bhatia, Zayda Rodarte, Brandon Montoya and colleagues, with an educational sal from [employer]. Thrive Questionnaire Date Thrive assessed: 12/24/23 ASHWIN-7 AMB Questionnaire ASHWIN-7 Date ASHWIN - 7 assessed: 04/10/24 Feeling nervous, anxious, or on edge: 1 = Several days Not being able to stop or control worryin = Several days Worrying too much about different things: 0 = Not at all Trouble relaxin = Nearly every day Being so restless that it is hard to sit still: 3 = Nearly every day Becoming easily annoyed or irritable: 2 = More than half the days Feeling afraid as if something awful might happen: 1 = Several days Total ASHWIN-7 score (0-4 normal; 5-9 mild; 10-14 moderate; 15-21 severe): 11 Source: Developed by Drs. Melchor Bhatia, Zayda Rodarte, Brandon Montoya and colleagues, with an educational sal from [employer]. ASHWIN-7 Assessment Billing ASHWIN-7 Assessment Tool: ASHWIN-7 Assessment 28237 Physical exam (Primary Care) Vital Signs: Last Vital Signs Pulse 65 04/10/24 08:25 Resp 14 04/10/24 08:25 BP 124/70 04/10/24 08:25 Pulse Ox 96 04/10/24 08:25 Oxygen Delivery Method Room Air 04/10/24 08:25 BMI result Body Mass Index 30.0 Tobacco/Smoking Status: Tobacco use Status Tobacco use date assessed 12/24/23 04/10/24 08:27 Patient Tobacco Use Status Never used Tobacco 04/10/24 08:27 e-Cigarette/Vaping Use Never Used 04/10/24 08:27 PHQ-9: PHQ-9 Score PHQ-9: Total score 10 04/10/24 08:54 Thrive Assessment: Date of Thrive Assessment Date Thrive assessed 12/24/23 04/10/24 08:27 Assessment and Plan Assessment & Plan (1) Skin lesion: Comment: right lower quad of abd Code(s): L98.9 - Disorder of the skin and subcutaneous tissue, unspecified (2) Abnormal skin growth: Comment: RLQ Code(s): D49.2 - Neoplasm of unspecified behavior of bone, soft tissue, and skin (3) BPH associated with nocturia: Comment: was on meds in the past - did not help declined Uro referral Code(s): N40.1 - Benign prostatic hyperplasia with lower urinary tract symptoms; R35.1 - Nocturia (4) Hyperlipidemia: Comment: LDL goal < 70 Code(s): E78.5 - Hyperlipidemia, unspecified Qualifiers: Hyperlipidemia type: mixed hyperlipidemia Qualified Code(s): E78.2 - Mixed hyperlipidemia Orders: Orders Comprehensive [place]. Panel Fast 12/06/24 E78.2 - Mixed hyperlipidemia, N40.1 - Benign prostatic hyperplasia with lower urinary tract symptoms, R35.1 - Nocturia Hemoglobin A1c 12/06/24 E78.2 - Mixed hyperlipidemia, N40.1 - Benign prostatic hyperplasia with lower urinary tract symptoms, R35.1 - Nocturia Lipid Panel 12/06/24 E78.2 - Mixed hyperlipidemia, N40.1 - Benign prostatic hyperplasia with lower urinary tract symptoms, R35.1 - Nocturia PSA, Ultra Sensitive 12/06/24 E78.2 - Mixed hyperlipidemia, N40.1 - Benign prostatic hyperplasia with lower urinary tract symptoms, R35.1 - Nocturia Microalbumin, Random (w Creat) 12/06/24 E78.2 - Mixed hyperlipidemia, N40.1 - Benign prostatic hyperplasia with lower urinary tract symptoms, R35.1 - Nocturia TSH reflex Free T4 12/06/24 E78.2 - Mixed hyperlipidemia, N40.1 - Benign prostatic hyperplasia with lower urinary tract symptoms, R35.1 - Nocturia Vitamin B12 and Folate 12/06/24 E78.2 - Mixed hyperlipidemia, N40.1 - Benign prostatic hyperplasia with lower urinary tract symptoms, R35.1 - Nocturia Referrals General Surgery Referral D49.2 - Neoplasm of unspecified behavior of bone, soft tissue, and skin, L98.9 - Disorder of the skin and subcutaneous tissue, unspecified Medications: New oxybutynin chloride ER 5 mg PO DAILY 90 tabs 0RF Refilled ezetimibe (Zetia) 10 mg PO DAILY 90 tabs 1RF Coding Level of Care Code Est Pt Level 4 (28070) Complex EM visit Add On G2211 Diagnoses Skin lesion L98.9 Abnormal skin growth D49.2 BPH associated with nocturia N40.1; R35.1 Mixed hyperlipidemia E78.2 Hyperlipidemia type: mixed hyperlipidemia Additional Codes ASHWIN-7 Assessment Billing - ASHWIN-7 Assessment Tool: ASHWIN-7 Assessment 77151 ([id number])
[2024-04-10 08:25] VITALS: BP 124/70; PULSE 65; RESP 14; O2SAT 96
== END 2024-04-10 09:13 | disposition home or self-care (01) ==
PROVIDERS: PCP Nurse Practitioner Family; Visit Provider Nurse Practitioner Family
DX: L98.9 Disorder of the skin and subcutaneous tissue, unspecified (principal); D49.2 Neoplasm of unspecified behavior of bone, soft tissue, and skin; N40.1 Benign prostatic hyperplasia with lower urinary tract symptoms; R35.1 Nocturia; E78.2 Mixed hyperlipidemia

== ENCOUNTER → 2024-04-10 08:20 | Outpatient (BNVA) | payer OTHER, SELFPAY | PROVIDERS: PCP Nurse Practitioner Family; Visit Provider Nurse Practitioner Family | DX: L98.9 Disorder of the skin and subcutaneous tissue, unspecified (principal); D49.2 Neoplasm of unspecified behavior of bone, soft tissue, and skin; N40.1 Benign prostatic hyperplasia with lower urinary tract symptoms; R35.1 Nocturia; E78.2 Mixed hyperlipidemia | CPT/HCPCS: 96127; 99212 ==

== ENCOUNTER 2024-05-05 09:08 | Outpatient (AMB) | payer OTHER, SELFPAY ==
--- NOTE | 2024-05-05 09:13 | MHC.OFFVIS ---
Vital Signs 05/05/24 09:22 Height 5 ft 8 in Weight 200 lb BMI 30.4 BP 145/70 H Blood Pressure Location Lt brachial Position Sitting Pulse 57 Intake Visit Reasons: Skin lesion Intake Note: Patient is seen in office for evaluation and treatment of a skin lesion RLQ . Pt c/o: onset 2yrs, has increase in size and changing color, denies redness, discharge or pain refRenee Poising Inspector Required: No Accompanied by: Spouse Allergies codeine [Codeine] Adverse Reaction (Mild, Verified 05/05/24 09:20) NAUSEA & VOMITING oxycodone [From Percodan] Adverse Reaction (Mild, Verified 05/05/24 09:20) NAUSEA & VOMITING Medication List - Last Reconciled 05/05/24 by Demetrio Garrido MD ezetimibe (Zetia) 10 mg PO DAILY meloxicam 15 mg PO DAILY PRN oxybutynin chloride ER 5 mg PO DAILY tadalafil 20 mg PO DAILY PRN HPI Comments Details: 63-year-old male patient presenting with a skin lesion located in the right lower quadrant abdomen. This lesion has been present for several years and has gradually increased in size. It was initially brown but has now become variegated in color. He denies any bleeding or discharge from the site. He is requesting excision. 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 ) Vision needs: No Review of Systems Const All systems reviewed & are unremarkable except as noted in HPI and below Denies chills, Denies fever(s), Denies headache(s), Denies poor appetite and Denies weakness ENT Denies headache(s) Card Denies chest pain, Denies irregular heart rhythm, Denies palpitations and Denies dyspnea Resp Denies cough, Denies excessive phlegm production and Denies dyspnea GI Denies abdominal pain, Denies bloating, Denies change in bowel habits, Denies constipation, Denies heartburn, Denies diarrhea, Denies nausea and Denies vomiting Denies difficulty urinating and Denies urinary frequency Musc Denies back pain, Denies muscle weakness and Denies numbness Skin/Breast Denies changing lesions and Denies unusual bruising Neuro Denies headache(s), Denies numbness, Denies paresthesias and Denies weakness Psych Denies anxiety and Denies depression Endo Denies palpitations Noel/Lymph Denies lymphadenopathy Physical Exam Const General: cooperative and no acute distress Nutritional Appearance: well nourished Orientation/consciousness: patient oriented x3 Limitations: no limitations HEENT Head: Yes normocephalic and Yes atraumatic Ears: hearing grossly normal bilaterally Resp Effort & Inspection: normal respiratory effort, no audible wheezes, no cough and no respiratory distress Cardio Jugular venous distension: no JVD GI Other: Right lower quadrant abdomen: 1 cm raised, crusted skin lesion with a variegated surface suspicious for skin neoplasm. Inspection: Yes normal to inspection Skin Other: Warm, dry, no rash Neuro General: patient oriented x3 Extrem General: Yes no clubbing, cyanosis or edema Assessment & Plan Assessment & Plan (1) Abnormal skin growth: Comment: RLQ Code(s): D49.2 - Neoplasm of unspecified behavior of bone, soft tissue, and skin Category: Medical Plan 63-year-old male patient presenting with a soft tissue mass of the skin located in the abdominal right lower quadrant. This is gradually increasing in size and has a suspicious appearance. He has a family history of malignant melanoma in his father so excision of this lesion is definitely highly recommended. After a review of the procedure, risks and alternatives, he consents to the procedure. This will be performed as an office procedure at his earliest convenience. Coding Level of Care Code New Pt Level 4 (68676) Diagnoses Abnormal skin growth D49.2
[2024-05-05 09:22] VITALS: BP 145/70; PULSE 57; BMI 30.4
== END 2024-05-05 09:29 | disposition home or self-care (01) ==
PROVIDERS: PCP Nurse Practitioner Family; Visit Provider Surgery
DX: D49.2 Neoplasm of unspecified behavior of bone, soft tissue, and skin (principal)
CPT/HCPCS: 99204

== ENCOUNTER → 2024-05-05 09:08 | Outpatient (BNVA) | payer OTHER, SELFPAY | PROVIDERS: PCP Nurse Practitioner Family; Visit Provider Surgery | DX: D49.2 Neoplasm of unspecified behavior of bone, soft tissue, and skin (principal) | CPT/HCPCS: 99202 ==

== ENCOUNTER 2024-05-21 15:39 | Outpatient (AMB) | payer OTHER, SELFPAY ==
--- NOTE | 2024-05-21 15:44 | MHC.OFFVIS ---
Vital Signs 05/21/24 16:08 Height 5 ft 8 in Weight 199 lb 15.701 oz BMI 30.4 Pulse 60 Intake Visit Reasons: Excision Skin lesion Intake Note: Patient is seen for office procedure, excision of skin lesion in the abdominal right lower quadrant. Pt c/o: here for removal of lesion Defensive Secondary Coach Required: No Allergies codeine [Codeine] Adverse Reaction (Mild, Verified 05/21/24 16:09) NAUSEA & VOMITING oxycodone [From Percodan] Adverse Reaction (Mild, Verified 05/21/24 16:09) NAUSEA & VOMITING Medication List - Last Reconciled 05/25/24 by Demetrio Garrido MD ezetimibe (Zetia) 10 mg PO DAILY meloxicam 15 mg PO DAILY PRN oxybutynin chloride ER 5 mg PO DAILY tadalafil 20 mg PO DAILY PRN HPI Comments Details: Patient returns today for excision of lesion right lower quadrant. 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 ) Vision needs: No Physical Exam Vital Signs: Last Vital Signs Pulse 60 05/21/24 16:08 BMI result Body Mass Index 30.4 Const General: no acute distress Nutritional Appearance: well nourished Orientation/consciousness: patient oriented x3 Resp Effort & Inspection: normal respiratory effort GI Other: 1.5 cm lesion right lower quadrant Neuro General: patient oriented x3 Office Procedures Excision Details: Preoperative diagnosis: Skin lesion of uncertain malignant potential right lower quadrant abdomen Postoperative diagnosis: Same Procedure: Excision of skin lesion right lower quadrant abdomen Surgeon: Demetrio Garrido MD Production Line Operator: None Anesthesia: Lidocaine 1% with epinephrine Indications for procedure: Enlarging lesion of the right lower quadrant abdomen skin measuring 1.5 cm in diameter with a crusted brown surface without ulceration or bleeding. Operative findings: 1.5 cm skin lesion right lower quadrant Specimen: Skin lesion right lower quadrant Estimated blood loss: 1 mL Complications: None Procedure details: Patient was placed in a supine position. The site of surgery was confirmed by the patient in the right lower quadrant. After assuring informed consent, the skin was prepped with Betadine and draped in a sterile fashion. Local anesthesia was then infiltrated circumferentially around the lesion. An elliptical incision oriented transversely was then created with a 15 blade. The incision was carried out through subcutaneous tissue and around the skin lesion. The lesion was excised off the subcutaneous tissue and passed off the table. This was sent to pathology for further examination. Light pressure was held to maintain hemostasis. Skin was then closed using interrupted 3-0 nylon sutures. Sterile dressings consisting of 2 x 2 gauze and Tegaderm were then applied. The patient tolerated the procedure well. He was discharged to home in stable condition. 21799-btahu/arms/legs 1.1-2cm Procedure code (CPT) selection complete Assessment & Plan Assessment & Plan (1) Skin lesion: Comment: right lower quad of abd Code(s): L98.9 - Disorder of the skin and subcutaneous tissue, unspecified Category: Medical Plan Patient returns for excision of a right lower quadrant abdominal wall skin lesion. He tolerated the procedure well and will return in 1 week for suture removal. Orders: Orders Surgical 05/21/24 D49.2 - Neoplasm of unspecified behavior of bone, soft tissue, and skin Coding Level of Care Code Procedure Only Diagnoses Skin lesion L98.9 CPT Codes Trunk/Arms/Legs - CPT: 04512-qtpyi/arms/legs 1.1-2cm ([id number])
[2024-05-21 16:08] VITALS: PULSE 60; BMI 30.4
== END 2024-05-21 16:02 | disposition home or self-care (01) ==
LOC: HO.HGS 15:40
PROVIDERS: PCP Nurse Practitioner Family; Visit Provider Surgery
DX: L82.0 Inflamed seborrheic keratosis (principal)
CPT/HCPCS: 11402

== ENCOUNTER 2024-05-21 15:39 | Outpatient (REF) | payer OTHER, SELFPAY | END 2024-05-21 15:40 | disposition home or self-care (01) | LOC: HO.LAB 15:39 | PROVIDERS: PCP Nurse Practitioner Family; Visit Provider Surgery | DX: L82.0 Inflamed seborrheic keratosis (principal); D49.2 Neoplasm of unspecified behavior of bone, soft tissue, and skin | CPT/HCPCS: 11402; 88304; 88305 ==

== ENCOUNTER 2024-05-29 09:18 | Outpatient (AMB) | payer OTHER, SELFPAY ==
--- NOTE | 2024-05-29 09:23 | MHC.OFFVIS ---
Vital Signs 05/29/24 09:30 Height 5 ft 8 in Weight 198 lb BMI 30.1 BP 138/80 Blood Pressure Location Lt brachial Position Sitting Pulse 80 Intake Visit Reasons: s/p Excision Skin lesion Intake Note: Patient is seen for post excision of skin lesion in the abdominal right lower quadrant. Pt c/o: denies any concerns a bit red, sutures removed at visit Exhibition Designer Required: No Accompanied by: Self / Same As Patient Allergies codeine [Codeine] Adverse Reaction (Mild, Verified 05/29/24 09:30) NAUSEA & VOMITING oxycodone [From Percodan] Adverse Reaction (Mild, Verified 05/29/24 09:30) NAUSEA & VOMITING HPI Comments Details: Patient returns 1 week following excision of a lesion of the right lower quadrant. He tolerated the procedure well but does have some soreness at the incision site. He returns today for suture removal. Pathology revealed a seborrheic keratosis. 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 ) Vision needs: No Physical Exam Vital Signs: Last Vital Signs Pulse 80 05/29/24 09:30 BP 138/80 05/29/24 09:30 BMI result Body Mass Index 30.1 Const General: no acute distress Nutritional Appearance: well nourished Orientation/consciousness: patient oriented x3 Resp Effort & Inspection: normal respiratory effort GI Other: Incision in the right lower quadrant is clean, dry, and intact. Sutures removed in the incisions found to be well healed. Neuro General: patient oriented x3 Assessment & Plan Assessment & Plan (1) Seborrheic keratosis: Code(s): L82.1 - Other seborrheic keratosis Category: Medical Plan 63-year-old male patient status post excision of a skin lesion of the right lower quadrant. Pathology confirmed a seborrheic keratosis. Tolerated the procedure well the wounds are healing nicely. He should follow up as needed. Coding Level of Care Code Global (42046) Diagnoses Seborrheic keratosis L82.1
[2024-05-29 09:30] VITALS: BP 138/80; PULSE 80; BMI 30.1
== END 2024-05-29 09:38 | disposition home or self-care (01) ==
PROVIDERS: PCP Nurse Practitioner Family; Visit Provider Surgery
DX: L82.1 Other seborrheic keratosis (principal)
CPT/HCPCS: 99024

== ENCOUNTER → 2024-05-29 09:18 | Outpatient (BNVA) | payer OTHER, SELFPAY | PROVIDERS: PCP Nurse Practitioner Family; Visit Provider Surgery | DX: Z48.817 Encounter for surgical aftercare following surgery on the skin and subcutaneous tissue (principal); Z98.890 Other specified postprocedural states | CPT/HCPCS: 99212 ==

== ENCOUNTER 2024-06-08 08:29 | Outpatient (AMB) | payer OTHER, SELFPAY ==
--- NOTE | 2024-06-08 08:31 | MHC.PC.OV ---
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: No Allergies codeine [Codeine] Adverse Reaction (Mild, Verified 06/08/24 08:51) NAUSEA & VOMITING oxycodone [From Percodan] Adverse Reaction (Mild, Verified 06/08/24 08:51) NAUSEA & VOMITING Medication List - Last Reconciled 06/08/24 by Renee Quiroz, REGIONAL LIAISON-BC ezetimibe (Zetia) 10 mg PO DAILY tadalafil 20 mg PO DAILY PRN Tobacco use date assessed: 12/24/23 Dental Screening Dental Screen Date: 04/10/24 HPI HPI Comments History of Present Illness Details 63 y/o M OA, erectile dysfunction, GERD, BPH, MDD, ASHWIN, HLD, PVD , Seborrheic keratosis s/p excision Seborrheic keratosis, inflamed [facility] Gen surgeon 04/2024 Family hx: has 4 children, 1 of methadone overdose Health Maintenance: Colon done at [facility] in [place], thinks done about 7-8 years ago - thinks it was normal. PSA 12/2023 WNL Tdap - 11/2023, Declined flu 2023 Specialists: Optho Ortho Here today for 8 week fu of Start oxybutynin XL 5 mg p.o. daily, return to the office in 8 weeks to follow up on the effectiveness. Titrate to effect or consider starting other medications. Stopped taking it, said it made him get up more. 11 times per night. Interested in seeing Uro Also stated could not take Meloxicam, made him exhausted, so stopped. It also caused headaches. Was given this for generalized athritis pain. He states that he did see [facility] for his right shoulder as well as his bilat hands. Consult notes reviewed. An MRI of his right shoulder and cervical spine were ordered in February. The patient states that he had this done in called to schedule a follow up as he did not hear anything about the results. He did have an EMG and nerve conduction study done in March, these results are available, he does have a follow up to review and discuss the treatment plan in June with [facility] hand specialty. I reviewed with him that I can not see any MRIs of his shoulder or his neck completed. I see them as active orders. He and his girlfriend are adamant that this was done. I have advised him that he needs to find the results as I do not see them in the chart. He states that he had then a [facility]. He continues to have daily right shoulder pain. This is also affecting his sleep. Exam Awake alert NAD LROM R shoulder, pain over anterior aspect w/ palpation BUE Neurovasc intact, weak HG bilat d/t pain Plan Refer to Urologist for nocturia Message sent to Dr Smith group to f/u on r shoulder and imaging FU with [facility] Ortho for bilat hands + EMG FU with GI 08/2024 Oxybutynin and meloxicam were discontinued due to patient self-reported side effects. Return to office in December for complete physical exam This note is constructed using voice recognition software. While every effort has been made to ensure accuracy in instructor psychiatric aide, still errors may have been included Sometimes, these errors may affect the content or meaning of the given sentence . Total time spent caring for the patient today was 30 minutes. This includes time spent before the visit reviewing the chart, time spent during the visit, and time spent after the visit on documentation [facility] Medical History Depression Anxiety Hx of gastroesophageal reflux (GERD) Arthritis High cholesterol Family History Mother HTN (hypertension) Hypercholesteremia Breast cancer Father HTN (hypertension) Hypercholesteremia Melanoma Social History Housing: Other (mobile home) Patient Tobacco Use Status: Never used Tobacco e-Cigarette/Vaping Use: Never Used Second Hand Smoke Exposure: No service: No Current occupational status: employed 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 ) Vision needs: No Questionnaire PHQ-9 Over the last 2 weeks, how often have you been bothered by any of the following problems? 1. Little interest or pleasure in doing things: not at all 2. Feeling down, depressed, or hopeless: not at all 3. Trouble falling or staying asleep, or sleeping too much: nearly every day 4. Feeling tired or having little energy: more than half the days 5. Poor appetite or overeating: not at all 6. Feeling bad about yourself - or that you are a failure or have let yourself or your family down: not at all 7. Trouble concentrating on things, such as reading the newspaper or watching television: not at all 8. Moving or speaking so slowly that other people could have noticed. Or the opposite - being so fidgety or restless that you have been moving around a lot more than usual: not at all 9. Thoughts that you would be better off or of hurting yourself in some way: not at all Total score: 5 88620 - PHQ-9 Billing: Yes Source: Developed by Drs. Melchor Bhatia, Zayda Rodarte, Brandon Montoya and colleagues, with an educational sal from [employer]. Thrive Questionnaire Date Thrive assessed: 06/08/24 I am a: Patient What is your living situation today?: I have a steady place to live Within the past 12 months, did the food you bought not last and you didn't have the money to get more?: Sometimes True Within the past 12 months, did you worry whether your food would run out before you got money to buy more?: Sometimes True Do you have trouble paying for medicines?: Yes Do you have trouble getting transportation to medical appointments?: No Do you have trouble paying your heating and electricity bill?: Yes Do you have trouble taking care of your child, family member or friend?: No Do you have trouble with day-to-day activities such as bathing, preparing meals, shopping, managing finances, etc.?: No Are you currently unemployed and looking for a job?: No Are you interested in more education?: No Please select the resources that you would like help with: Utilities Currently or been in a relationship where the following occur: No concerns reported THRIVE Score: 3 AUDIT C Alcohol Use Questionnaire (AUDIT-C) 1. How often do you have a drink containing alcohol?: 2-3 times a week 2. How many drinks containing alcohol do you have on a typical day when you are drinking?: 1 or 2 3. How often do you have six or more drinks on one occasion?: Never Total Score: 3 ASHWIN-7 AMB Questionnaire ASHWIN-7 Date ASHWIN - 7 assessed: 06/08/24 Feeling nervous, anxious, or on edge: 1 = Several days Not being able to stop or control worryin = Several days Worrying too much about different things: 1 = Several days Trouble relaxin = Nearly every day Being so restless that it is hard to sit still: 3 = Nearly every day Becoming easily annoyed or irritable: 0 = Not at all Feeling afraid as if something awful might happen: 1 = Several days Total ASHWIN-7 score (0-4 normal; 5-9 mild; 10-14 moderate; 15-21 severe): 10 Source: Developed by Drs. Melchor Bhatia, Zayda Rodarte, Brandon Montoya and colleagues, with an educational sal from [employer]. ASHWIN-7 Assessment Billing ASHWIN-7 Assessment Tool: ASHWIN-7 Assessment 23861 Physical exam (Primary Care) Vital Signs: Last Vital Signs Pulse 50 06/08/24 08:34 Resp 14 06/08/24 08:34 BP 142/80 H 06/08/24 08:34 Pulse Ox 96 06/08/24 08:34 Oxygen Delivery Method Room Air 06/08/24 08:34 BMI result Body Mass Index 30.4 Tobacco/Smoking Status: Tobacco use Status Tobacco use date assessed 12/24/23 06/08/24 08:35 Patient Tobacco Use Status Never used Tobacco 06/08/24 08:35 e-Cigarette/Vaping Use Never Used 06/08/24 08:35 PHQ-9: PHQ-9 Score PHQ-9: Total score 5 06/08/24 08:35 Thrive Assessment: Date of Thrive Assessment Date Thrive assessed 06/08/24 06/08/24 08:35 Currently or been in a relationship where the following occur: No concerns reported Coding Level of Care Code Est Pt Level 4 (78402) Complex EM visit Add On G2211 Diagnoses BPH associated with nocturia N40.1; R35.1 Seborrheic keratosis L82.1 Bilateral carpal tunnel syndrome G56.03 Chronic right shoulder pain M25.511; G89.29 Chronicity: chronic Additional Codes ASHWIN-7 Assessment Billing - ASHWIN-7 Assessment Tool: ASHWIN-7 Assessment 00819 ([id number]) PHQ-9 - 41207 - PHQ-9 Billing: Yes ([id number]) Assessment & Plan Assessment & Plan (1) BPH associated with nocturia: Code(s): N40.1 - Benign prostatic hyperplasia with lower urinary tract symptoms; R35.1 - Nocturia Category: Medical Plan: . (2) Seborrheic keratosis: Comment: s/p RLQ excision Dr Garrido 04/2024 Code(s): L82.1 - Other seborrheic keratosis Category: Medical Plan: . (3) Bilateral carpal tunnel syndrome: Comment: EMG, NCV 03/2024 Code(s): G56.03 - Carpal tunnel syndrome, bilateral upper limbs Category: Medical Plan: . (4) Right shoulder pain: Code(s): M25.511 - Pain in right shoulder Category: Medical Qualifiers: Chronicity: chronic Qualified Code(s): M25.511 - Pain in right shoulder; G89.29 - Other chronic pain Plan: . Plan . Orders: Referrals Urology Referral N40.1 - Benign prostatic hyperplasia with lower urinary tract symptoms, R35.1 - Nocturia
[2024-06-08 08:34] VITALS: BP 142/80; PULSE 50; RESP 14; O2SAT 96; BMI 30.4
== END 2024-06-08 08:58 | disposition home or self-care (01) ==
PROVIDERS: PCP Nurse Practitioner Family; Visit Provider Nurse Practitioner Family
DX: N40.1 Benign prostatic hyperplasia with lower urinary tract symptoms (principal); R35.1 Nocturia; L82.1 Other seborrheic keratosis; G56.03 Carpal tunnel syndrome, bilateral upper limbs; M25.511 Pain in right shoulder; G89.29 Other chronic pain

== ENCOUNTER → 2024-06-08 08:29 | Outpatient (BNVA) | payer OTHER, SELFPAY | PROVIDERS: PCP Nurse Practitioner Family; Visit Provider Nurse Practitioner Family | DX: N40.1 Benign prostatic hyperplasia with lower urinary tract symptoms (principal); R35.1 Nocturia; L82.1 Other seborrheic keratosis; G56.03 Carpal tunnel syndrome, bilateral upper limbs; M25.511 Pain in right shoulder; G89.29 Other chronic pain | CPT/HCPCS: 96127; 99212 ==

== ENCOUNTER 2024-06-24 15:36 | Outpatient (AMB) | payer OTHER, SELFPAY ==
--- NOTE | 2024-06-24 15:40 | MHC.OFFVIS ---
Intake Visit Reasons: OV: B/L hand pain, EMG done 04/09/24 Intake Note: Tino is a 63 year old right hand dominant male who presents today for a follow up visit of his bilateral hand pain, EMG was done on 04/09/2024. Patient was last seen in office for B/L hands on 03/12/2024 w/ Dr Hernandez. Pt states he wakes up in the middle of the night with pain in his hands and numbness and tingling in his fingers. Pt states as of now his right hand is worse. Allergies codeine [Codeine] Adverse Reaction (Mild, Verified 06/24/24 15:40) NAUSEA & VOMITING oxycodone [From Percodan] Adverse Reaction (Mild, Verified 06/24/24 15:40) NAUSEA & VOMITING HPI HPI OV: B/L hand pain, EMG done 04/09/24: Details: Patient is a 64 year male who presents for evaluation of bilateral pain, numbness, and tingling, ongoing for several months. Patient states that this numbness and pain is constant, daily, and worse at night. The patient states that he frequently has difficulty playing instruments and lifting things. The patient states that he would like to pursue any intervention indicated for him. Patient reports no other acute complaints or concerns at this time. 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 ) Vision needs: No Review of Systems Const All systems reviewed & are unremarkable except as noted in HPI and below Physical Exam Extrem Other: Neuro: Decreased sensation in the median nerve distribution of bilateral hands. Normal sensation to all other digits in the bilateral hands today. No thenar or intrinsic wasting. Good APB muscle firing and good finger cross. Vascular: Capillary refill brisk. ROM: Patient can make a fist and extend all their digits. Skin: No lacerations or abrasions noted. General: No ecchymosis. No erythema or evidence of infection. Results Reviewed Results Reviewed: IMPRESSION: 1. This is an abnormal study. 2. There is electrodiagnostic evidence for bilateral moderate-severe median neuropathy at the wrist, consistent with carpal tunnel syndrome. 3. There is no electrodiagnostic evidence for ulnar neuropathy, brachial plexopathy, or cervical radiculopathy. Thank you for your kind referral. Carol Gonzalez MD, ALEKSANDAR Assessment & Plan Assessment & Plan (1) Bilateral carpal tunnel syndrome: Comment: EMG, NCV 03/2024 Code(s): G56.03 - Carpal tunnel syndrome, bilateral upper limbs Category: Medical Plan 1. Carpal tunnel syndrome, right Symptoms constant, daily, worse at night I educated the patient about the condition. I discussed both operative and nonoperative treatment options. The patient would like to proceed with surgery. The risks and benefits of operative treatment were discussed with the patient and the patient wishes to proceed with surgery. These risks include, but are not limited to, risk of damage to blood vessels, nerves, tendons, infection, recurrence, incomplete relief of preoperative symptoms, persistent pain, possible need for further surgery, and the risks associated with regional blocks and/or anesthesia. Plan is to take the patient to the operating room at some point in the next few weeks for the following procedures: 1. Right carpal tunnel release under local anesthesia All of the preoperative paperwork including the consent was discussed today. All of the patient's questions were answered in the clinic today. The patient understands that they will be in contact with our surgical tech to discuss scheduling their procedure. Patient denies diabetes, blood thinners, asthma, heart issues, lung issues, kidney issues, or current smoking. Patient was all personnel provided with bilateral Velcro wrist splints to be worn at night for potential relief of nighttime symptoms 2. Carpal tunnel syndrome, left Symptoms constant, daily, worse at night Patient would like to proceed with operative intervention of the right prior to any intervention of the left Patient finds right side more bothersome Once again, patient was provided with bilateral night splints for help with nighttime symptoms Patient was informed that if he is recovering well on the right side for at his postoperative visit, we can get him signed up for the left side at that time patient was amenable to this plan Coding Level of Care Code New Pt Level 4 (65422) Diagnoses Bilateral carpal tunnel syndrome G56.03
== END 2024-06-24 16:17 | disposition home or self-care (01) ==
PROVIDERS: PCP Nurse Practitioner Family
DX: G56.03 Carpal tunnel syndrome, bilateral upper limbs (principal)
CPT/HCPCS: 99204

== ENCOUNTER → 2024-06-24 15:36 | Outpatient (BNVA) | payer OTHER, SELFPAY | PROVIDERS: PCP Nurse Practitioner Family | DX: G56.03 Carpal tunnel syndrome, bilateral upper limbs (principal) | CPT/HCPCS: 99202 ==

== ENCOUNTER 2024-07-02 07:44 | Outpatient (AMB) | payer OTHER, SELFPAY ==
--- NOTE | 2024-07-02 07:46 | MHC.OFFVIS ---
Intake Visit Reasons: OV- Cervical Spine MRI review, Right shoulder pain and weakness Intake Note: Tino is a 64 year old male who presents with complaints of progressively worsening right shoulder pain and weakness as well as progressively worsening neck pain which radiates into his right arm. The patient describes his shoulder pain as sharp and severe in nature. He did injure his right shoulder several years ago while lifting a heavy object. He has failed the last 6 weeks of conservative treatment which has included physical therapy exercises, Tylenol, anti-inflammatory medicines and topical cream. The patient reports difficulty lifting his right hand above shoulder height. Allergies codeine [Codeine] Adverse Reaction (Mild, Verified 07/02/24 07:46) NAUSEA & VOMITING oxycodone [From Percodan] Adverse Reaction (Mild, Verified 07/02/24 07:46) NAUSEA & VOMITING Medication List - Last Reconciled 07/02/24 by Anderson Hernandez MD omeprazole 20 mg PO DAILY tadalafil 20 mg PO DAILY PRN PFSH Medical History Depression Anxiety Hx of gastroesophageal reflux (GERD) Arthritis High cholesterol Family History Mother HTN (hypertension) Hypercholesteremia Breast cancer Father HTN (hypertension) Hypercholesteremia Melanoma Social History Housing: Other (mobile home) Patient Tobacco Use Status: Never used Tobacco e-Cigarette/Vaping Use: Never Used Second Hand Smoke Exposure: No service: No Current occupational status: employed 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 ) Vision needs: No Physical Exam Const Other: Well-nourished well-developed very friendly male awake alert and oriented x3 in no acute distress Neck Other: Cervical spine examination shows pain with range of motion, right-sided paraspinal muscle tenderness, positive Spurling's test Extrem Other: Right shoulder examination shows decreased range of motion when compared to his left shoulder, 4/5 strength with supraspinatus testing, positive impingement signs, tenderness over his acromioclavicular joint, no instability Results Reviewed Results Reviewed: X-rays of the patient's right shoulder show severe acromioclavicular joint narrowing, a type 3 acromion, no acute bony abnormalities MRI of the patient's cervical spine shows moderate to severe foraminal stenosis most significant at level C3-C4 Assessment & Plan Assessment & Plan (1) Cervical stenosis of spinal canal: Code(s): M48.02 - Spinal stenosis, cervical region Category: Medical (2) Right shoulder pain: Code(s): M25.511 - Pain in right shoulder Category: Medical Qualifiers: Chronicity: chronic Qualified Code(s): M25.511 - Pain in right shoulder; G89.29 - Other chronic pain Plan Mr. Plunkett presents with progressively worsening right shoulder pain and weakness due to impingement syndrome and possible full-thickness rotator cuff tearing. Thus, I will send him for an MRI of his right shoulder for further evaluation. He will continue with his range of motion exercises in the meantime. I will see him back following the MRI to discuss the findings and treatment options. The patient also has progressively worsening neck pain due to foraminal stenosis. I will refer him to the neurosurgery department here at [facility]. He will follow-up as instructed. Feel free to call me at any time should questions regarding his orthopedic management arise. I spent 22 minutes in reviewing the patient's records and imaging studies, seeing the patient and documenting in the medical record. Orders: Orders MR shoulder RT wo con Today G89.29 - Other chronic pain, M25.511 - Pain in right shoulder Referrals Neuro Spine Referral M48.02 - Spinal stenosis, cervical region Coding Level of Care Code Est Pt Level 3 (72134) Complex EM visit Add On G2211 Diagnoses Cervical stenosis of spinal canal M48.02 Chronic right shoulder pain M25.511; G89.29 Chronicity: chronic
== END 2024-07-02 08:08 | disposition home or self-care (01) ==
PROVIDERS: PCP Nurse Practitioner Family; Visit Provider Orthopaedic Surgery
DX: M48.02 Spinal stenosis, cervical region (principal); M25.511 Pain in right shoulder; G89.29 Other chronic pain
CPT/HCPCS: 99213; G2211

== ENCOUNTER → 2024-07-02 07:44 | Outpatient (BNVA) | payer OTHER, SELFPAY | PROVIDERS: PCP Nurse Practitioner Family; Visit Provider Orthopaedic Surgery | DX: M48.02 Spinal stenosis, cervical region (principal); M25.511 Pain in right shoulder; G89.29 Other chronic pain | CPT/HCPCS: 99212 ==

== ENCOUNTER 2024-07-10 13:40 | Outpatient (AMB) | payer OTHER, SELFPAY ==
--- NOTE | 2024-07-10 14:11 | A.SPINEOV_ITS ---
Vital Signs 07/10/24 14:11 Height 5 ft 8.5 in Weight 200 lb BMI 30.0 Intake Visit Reasons: LBP Intake Note: Mr. Plunkett is here today c/o low back pain. 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: No Allergies codeine [Codeine] Adverse Reaction (Mild, Verified 07/10/24 14:12) NAUSEA & VOMITING oxycodone [From Percodan] Adverse Reaction (Mild, Verified 07/10/24 14:12) NAUSEA & VOMITING Physical Exam Vital Signs: BMI result Body Mass Index 30.0 Assessment & Plan Assessment & Plan (1) Lumbar degenerative disc disease: Code(s): M51.369 - Other intervertebral disc degeneration, lumbar region without mention of lumbar back pain or lower extremity pain Category: Medical (2) Cervical disc disorder: Code(s): M50.90 - Cervical disc disorder, unspecified, unspecified cervical region Category: Medical Plan Dear Dr Hernandez, Thank you for referring Mr Plunkett to our office today. He is a very nice 64-year-old gentleman presents to the office today for evaluation of 2 separate issues. The 1st is that he has had chronic neck pain going on for many years. The neck pain is in the posterior cervical midline region. He is very active, routinely exercises and generally just treated it with exercising. Over time though it has gotten worse. He has has a very hard time sitting in a chair. Doing things like sitting and watching TV in the evenings, are very difficult just because of the position of his head in a chair. He does get some tingling into both of his hands, recently diagnosed with carpal tunnel syndrome. He is due for an upcoming surgery. He will occasionally get tingling shooting down his right arm as well. He has not had any dedicated conservative treatment to this yet. Second issue is that he has had low back pain for many years. He was diagnosed with degenerative disc disease years ago and again, his just treated it with trying to do stretching and exercises the best he can. No formal dedicated conservative treatment for that yet. He takes Aleve at night to help with the discomfort. PMH: Carpal tunnel syndrome, BPH, umbilical hernia repair he has shoulder arthropathy due for an upcoming MRI, wisdom teeth extraction, GERD. Denies any heart attacks, strokes, pulmonary disease, liver disease, kidney issues, bleeding disorders, blood clots or cancer Social hx: Occasionally smokes marijuana but otherwise no recreational drug use, tobacco or alcohol Medications: Omeprazole and leave Allergies: Codeine, Percocet Physical exam: Awake alert oriented no acute distress, strength in bilateral upper extremities is full. He has 3+ symmetric reflexes in the upper and lower extremities. Negative Froy's sign. Negative Tinel's, negative Phalen's. Imaging review: He has a cervical MRI done at the [facility], showing some moderate degeneration of the C6-7 disc space. No significant central canal or foraminal narrowing. He has a MRI from 2018 of his lumbar MRI showing some mild disc degeneration. Impression: 64-year-old male with posterior cervical neck pain and low back pain. These things have been chronic going on for years. Generally he just treats it with stretching and exercises which will make it feel better. Over time now, he has had worsening of the neck pain to where he is having a lot of trouble just sitting watching TV. I will also bother him at night as well. His lumbar situation is also consistent with chronic low back pain, which he gener ally again treats with exercise and stretching. He takes Aleve at night as well for that. He has overlapping shoulder issues as well that are currently being worked up. I reviewed his cervical MRI with him which shows that he has some disc degeneration at C6-7. I do not know if I can explain all of his neck pain from that but certainly it could be part of it. I am going to starting on some basic conservative measures including physical therapy. I told him let us give that at least a few months to see how that works. The next step after that would be pain management for possible injections. I will also give him a referral to PT for lumbar degenerative disc disease and low back pain. If his back pain is no better after the therapy, I will repeat his MRI because his last 1 was 6 years old. I would like to see him back in 3 months. Thank you for allowing us to care for your patient. The total time spent with this visit with this patient was 45 minutes reviewing history, physical exam, cervical and lumbar imaging review, and implementation of treatment plan or further diagnostic testing Jamison Granger MD,PhD [facility] Orders: Orders PT Evaluation and Treatment Today M50.90 - Cervical disc disorder, unspecified, unspecified cervical region, M51.369 - Other intervertebral disc degeneration, lumbar region without mention of lumbar back pain or lower extremity pain Coding Level of Care Code New Pt Level 4 (21949) Diagnoses Lumbar degenerative disc disease M51.369 Cervical disc disorder M50.90
== END 2024-07-10 14:40 | disposition home or self-care (01) ==
PROVIDERS: PCP Nurse Practitioner Family; Referring Provider Orthopaedic Surgery; Visit Provider Physician Assistant
DX: M51.369 Other intervertebral disc degeneration, lumbar region without mention of lumbar back pain or lower extremity pain (principal); M50.90 Cervical disc disorder, unspecified, unspecified cervical region
CPT/HCPCS: 99204

== ENCOUNTER → 2024-07-10 13:40 | Outpatient (BNVA) | payer OTHER, SELFPAY | PROVIDERS: PCP Nurse Practitioner Family; Referring Provider Orthopaedic Surgery; Visit Provider Physician Assistant | DX: M51.369 Other intervertebral disc degeneration, lumbar region without mention of lumbar back pain or lower extremity pain (principal); M50.90 Cervical disc disorder, unspecified, unspecified cervical region | CPT/HCPCS: 99202 ==

== ENCOUNTER 2024-08-04 14:11 | Outpatient (AMB) | payer OTHER, SELFPAY ==
--- NOTE | 2024-08-04 14:19 | A.OFFVIS_ITS ---
Intake Visit Reasons: BPH/nocturia Intake Note: Patient is present for BPH/NOCTURIA Urology Medication:TADALAFIL Antibiotic Allergy:NONE Blood Thinner:NONE TODAY'S PVR:24ML'S Disaster Response Director Required: No Allergies codeine [Codeine] Adverse Reaction (Mild, Verified 08/04/24 14:20) NAUSEA & VOMITING oxycodone [From Percodan] Adverse Reaction (Mild, Verified 08/04/24 14:20) NAUSEA & VOMITING HPI Comments Details: Tino is a pleasant male. Is a patient of Julio. He seen for the following urologic conditions - lower urinary tract symptoms Lower urinary tract symptoms Primarily nocturia Has not used alpha blockers Will trial tadalafil PFSH Medical History Depression Anxiety Hx of gastroesophageal reflux (GERD) Arthritis High cholesterol Family History Mother HTN (hypertension) Hypercholesteremia Breast cancer Father HTN (hypertension) Hypercholesteremia Melanoma Social History Housing: Other (mobile home) Patient Tobacco Use Status: Never used Tobacco e-Cigarette/Vaping Use: Never Used Second Hand Smoke Exposure: No service: No Current occupational status: employed 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 ) Vision needs: No Review of Systems Const Denies chills and Denies fever(s) Card Reports no additional complaints and Denies syncope Resp Denies cough GI Denies abdominal pain and Denies heartburn Reports as per HPI and Denies change in libido Neuro Denies syncope Psych Denies change in libido Endo Denies change in libido Physical Exam Const General: cooperative, healthy appearing, comfortable and no acute distress Orientation/consciousness: patient oriented x3 HEENT Face and sinus: Yes normal facial exam Mouth: moist mucous membranes Neck Neck: Yes normal visual inspection, Yes full ROM and Yes trachea midline Chest Chest palpation & inspection: normal inspection of the chest Resp Effort & Inspection: normal respiratory effort, able to speak in complete sentences and no respiratory distress GI Inspection: Yes normal to inspection Back/Spine/Pelvis Cervical Spine: normal cervical lordosis Thoracic/Lumbar Spine: thoracic and lumbar spine normal to inspection Skin General skin exam: no rashes or lesions noted Neuro General: patient oriented x3, gait normal, tone normal and moves all extremities Extrem General: Yes normal to inspection and Yes capillary refill normal Office Procedures Post Void Residual Post Residual Void Post Void Residual (PVR): 24 [id number] Void Residual by ultrasound Results AMB Urinalysis, Automated UA Leukoctes 0 Chelo/uL Last Edit by DOROTHY Wetzel on 08/04/24 14:28 UA Nitrite Negative Last Edit by DOROTHY Wetzel on 08/04/24 14: UA Urobilinogen 0.2 mg/dL Last Edit by DOROTHY Wetzel on 08/04/24 14:2 8 UA Protein 0 mg/dL Last Edit by DOROTHY Wetzel on 08/04/24 14: UA pH 6.5 Last Edit by DOROTHY Wetzel on 08/04/24 14: UA Blood 0 Wayne/uL Last Edit by DOROTHY Wetzel on 08/04/24 14: UA Specific [place] 1.010 Last Edit by DOROTHY Wetzel on 08/04/24 14: 28 UA Ketone Negative Last Edit by DOROTHY Wetzel on 08/04/24 14: UA Bilirubin 0 mg/dL Last Edit by DOROTHY Wetzel on 08/04/24 14: UA Glucose 0 mg/dL Last Edit by DOROTHY Wetzel on 08/04/24 14:28 Results Reviewed Results Reviewed: Laboratory Last Values Urine pH (Auto) 6.5 08/04/24: Specific [place] (Auto) 1.010 08/04/24 14:28 Urine Protein (Auto) 0 mg/dL 08/04/24 14:28 Glucose (UA)(Auto) 0 mg/dL 08/04/24 14: Urine Ketones (Auto) Negative 08/04/24: Urine Blood (Auto) 0 Wayne/uL 08/04/24 14:28 Urine Nitrite (Auto) Negative 08/04/24: Urine Bilirubin (Auto) 0 mg/dL 08/04/24: Urine Urobilinogen (Auto) 0.2 mg/dL 01/14/25 14:28 Leukocyte Esterase (Auto) 0 Chelo/uL 08/04/24 14:28 Assessment & Plan Assessment & Plan (1) BPH associated with nocturia: Code(s): N40.1 - Benign prostatic hyperplasia with lower urinary tract symptoms; R35.1 - Nocturia Category: Medical (2) Erectile dysfunction: Comment: using tadalafil with + effect declined URo referral Code(s): N52.9 - Male erectile dysfunction, unspecified Category: Medical Qualifiers: Erectile dysfunction type: vasculogenic Vasculogenic erectile dysfunction type: due to arterial insufficiency Qualified Code(s): N52.01 - Erectile dysfunction due to arterial insufficiency Plan Trial daily tadalafil 2 month follow-up Orders: Orders AMB Urinalysis Automated 08/04/24 Z13.9 - Encounter for screening, unspecified Medications: New tadalafil BIN N Group [facility] DR33 [id number] 5 mg PO DAILY 90 tabs 0RF sexual activity 90 days N40.1 - Benign prostatic hyperplasia with lower urinary tract symptoms, R35.1 - Nocturia Patient Instructions: Imaging studies, laboratory and physical exam results were discussed and reviewed in detail. No major barriers to patient understanding were identified. An opportunity to ask questions regarding the treatment plan was provided. All questions were answered. The patient expressed understanding and agreement with the above treatment plan. The patient is aware they should contact our office by phone for worsening of their current condition or the appearance of new urologic symptoms. Compliance is encouraged with any medications and followup testing that is ordered. It is a privilege to participate in the urologic care of your patient. If you have any questions or concerns regarding treatment for the above conditions, or other urologic issues, please do not hesitate to contact me. The office telephone contact is [phone]. This note is constructed using voice recognition software. While every effort has been made to ensure accuracy center rep errors may have been included. Yours sincerely, Dr Prasanna Stephenson MD, ALEKS[facility]AR [facility] - Urology Providers of Expert, Compassionate Care for the Genitourinary System Coding Level of Care Code New Pt Level 4 (13741) Diagnoses BPH associated with nocturia N40.1; R35.1 Erectile dysfunction due to arterial insufficiency N52.01 Erectile dysfunction type: vasculogenic Vasculogenic erectile dysfunction type: due to arterial insufficiency CPT Codes Post Residual Void - PVR CPT Code: 95716-[id number] Void Residual by ultrasound ([id number])
== END 2024-08-04 14:59 | disposition home or self-care (01) ==
PROVIDERS: PCP Nurse Practitioner Family; Visit Provider Urology
DX: Z13.9 Encounter for screening, unspecified (principal)
CPT/HCPCS: 99204

== ENCOUNTER → 2024-08-04 14:11 | Outpatient (BNVA) | payer OTHER, SELFPAY | PROVIDERS: PCP Nurse Practitioner Family; Visit Provider Urology | DX: N40.1 Benign prostatic hyperplasia with lower urinary tract symptoms (principal); R35.1 Nocturia; N52.01 Erectile dysfunction due to arterial insufficiency | CPT/HCPCS: 51798; 81003; 99202 ==

== ENCOUNTER → 2024-08-05 07:20 | Outpatient (BNV) | payer OTHER, SELFPAY | PROVIDERS: PCP Nurse Practitioner Family; Visit Provider Radiology Diagnostic Radiology | DX: M25.511 Pain in right shoulder (principal) | CPT/HCPCS: 73221 ==

== ENCOUNTER 2024-08-05 07:25 | Outpatient (REF) | payer OTHER, SELFPAY ==
--- NOTE | ~2024-08-05 | MR_ITS ---
CLINICAL HISTORY: M25.511 - Pain in right shoulder MR right shoulder without gadolinium Comparison: None Findings: There are significant degenerative changes of the AC joint with osteophyte formation likely partial fusion across the joint mild subchondral edema. There is compression upon the supraspinatus tendon. There is mild elevation of the humeral head in relationship to the glenoid and acromion. There is supraspinatus articular surface high-grade partial tendon tear to full-thickness complete tear without retraction. The increased T2 signal tear extends posteriorly into the infraspinatus tendon which is intact. There is mild diffuse increased T2 signal within the infraspinatus tendon. Subscapularis and teres minor tendons are intact. There is increased T2 signal within the bicipital tendon sheath with increased T2 signal within the tendon no disruption of the tendon. There are small osteophytes in the region of bicipital groove with a small subchondral humeral geodes. There is no shoulder dislocation. There are no significant joint effusions. There are subchondral geodes , articular and small osteochondral defects within the greater tuberosity adjacent to the rotator cuff insertion. There are glenohumeral degenerative changes with osteophyte formation. There are likely small glenohumeral articular cartilage defects. There is significant degeneration with deformity , flattening with increased signal within the anterior and posterior labrum. IMPRESSION: Significant AC joint osteoarthrosis with compression and likely impingement upon the supraspinatus tendon High-grade supraspinatus articular surface near complete to complete full-thickness tendon tear without retraction Tendinosis with partial tear of the infraspinatus tendon Bicipital tenosynovitis Degenerative changes, articular and small osteochondral defects, geodes within the greater tuberosity and the within the bicipital groove adjacent to the bicipital tendon Glenohumeral osteoarthrosis, osteophytes with likely articular defects Significant degenerative changes within the anterior and posterior labrum with likely degenerative tears This document has been electronically signed by: Melchor Balderas MD on 08/06/2024 07:06:31
== END 2024-08-05 07:26 | disposition home or self-care (01) ==
LOC: HO.MRI 07:25
PROVIDERS: PCP Nurse Practitioner Family; Visit Provider Orthopaedic Surgery
DX: M25.511 Pain in right shoulder (principal); G89.29 Other chronic pain
CPT/HCPCS: 73221

== ENCOUNTER 2024-08-20 07:01 | Outpatient (RCR) | payer OTHER, SELFPAY ==
--- NOTE | 2024-08-12 08:29 | MHC.PT.EP ---
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 OBJECTIVELY, THE Pt HAS ALTERED SQUAT MECH, DECR LUMBOPELVIC / LEs FLEXIBILITY, DECR CORE STAB, (-) SENSORIMOTOR DEFICITS, (+) SOFT TISSUE TENSION IN HODA LUMBAR REGION, AND FLUCTUATING CENTRAL LUMBAR PAIN AND NEWER ONSET HODA POSTERIOR THIGH SXS. HE IS MOTIVATED FOR PT AND IS A GOOD CANDIDATE TO ADDRESS THE ABOVE FINDINGS AND GUIDE HIM IN SX/ PAIN MGMT. Frequency and Duration: The patient will be seen 2 x WK x 4 WKS Short Term Goals: DECR LBP TO 2-3/10 INITIATE HEP-> IMPROVE LEs FLEXIBILITY EDUC RE AND IMPROVE CORE ENGAGEMENT Group Home Goals: Pt INDEP W HEP AND SELF- SX MGMTTECHN Pt IMPROVE SLEEP, PERF ADLs W REDUCED SXS IMPROVE OSWESTRY ( AT EVAL 17/50) EFFICIENT SQUAT/ BODY MECH W SIMUL ADLs Treatment Plan: Modalities to reduce pain, spasms and effusion. Manual therapy to restore motion and function. Therapeutic exercise to improve strength and flexibility. Neuromuscular re-education for posture and balance. Therapeutic activities to return to functional activities of daily living. Electronically signed by: WILLIAM HEAD,PT Please sign and return to therapist. Thank you for your referral.
--- NOTE | 2024-11-11 08:25 | MHC.PT.DC ---
[facility] [place] Office [place] Office [place] Office [address] Kaity Singh 140 [facility] [phone] F: [phone] F: [phone] F: [phone] F: [phone] Physical Therapy Discharge Report Diagnosis: LUMBAR DEGENERATIVE DISC DISEASE- CERV DISC DISORDER, CERV DDD C6-7 Date of Surgery: Date of Evaluation: 08/12/24 Date of Discharge: 11/11/24 Treatments to Date: 4 Cancellations to Date: 1 No Shows to Date: 1 Discharge Status: Patient Elected to Stop Visit Non-compliance Discharge Summary: JAMES BRIEFLY ATTENDED PT NOTED ABOVE -> HE DID BENEFITT FROM VC/TC TO EFFICIENTLY ENGAGE CORE, WELL INCR KINESTHETIC AWARENESS AND DISSOCIATION OF PELVIS/ TRUNK/ HIPS ; JAMES NOTED HE FELT MUCH BETTER AFTER PERF THER EXER IN PT, ESPEC ENGAGING CORE . HE DID NOT ATTEND HIS LAST 2 SCHED PT APPTS AND THEREFORE, A FORMAL REASSESSMENT WAS NOT PERF- HE IS D/C THOS DATE FROM PT. Electronically signed by: WILLIAM HEAD,PT Please sign and return to therapist. Thank you for your referral.
== END 2024-11-11 08:23 | disposition home or self-care (01) ==
LOC: HO.PT 07:01
PROVIDERS: PCP Nurse Practitioner Family; Visit Provider Physician Assistant
DX: M51.369 Other intervertebral disc degeneration, lumbar region without mention of lumbar back pain or lower extremity pain (principal); M50.90 Cervical disc disorder, unspecified, unspecified cervical region
CPT/HCPCS: 97110; 97162

== ENCOUNTER → 2024-08-24 07:58 | Outpatient (BNVA) | payer OTHER, SELFPAY | PROVIDERS: PCP Nurse Practitioner Family; Visit Provider Nurse Practitioner Family | DX: Z12.11 Encounter for screening for malignant neoplasm of colon (principal); K21.9 Gastro-esophageal reflux disease without esophagitis | CPT/HCPCS: 99202 ==

== ENCOUNTER 2024-08-27 11:16 | Day surgery (SDC) | payer OTHER, SELFPAY ==
[2024-08-27 09:17] VITALS: BMI 30.9
[2024-08-27 11:49] VITALS: BP 129/78; PULSE 76; RESP 20; TEMP 36.9; O2SAT 97
--- NOTE | 2024-08-27 12:32 | MHC.SHP ---
Pre-Procedural Eval Section A - 24 Hr Update-Section A only Date of Service: 08/27/24 The patient is an INPATIENT: No Changes since office visit: No Cold of Flu in the past 2 weeks, No New Medical Problems, No Changes in Medication and No Patient answered all questions The patient has been examined within 24 hours of the surgical procedure. The History & Physical has been completed within 30 days and I have reviewed it.: Yes Section B - Complete if H&P > 30 days Chief Complaint: Carpal tunnel syndrome, right upper limb Allergies: Allergies Allergy/AdvReac Type Severity Reaction Status Date / Time codeine [Codeine] AdvReac Mild NAUSEA & Verified 08/24/24 08:06 VOMITING oxycodone [From Percodan] AdvReac Mild NAUSEA & Verified 08/24/24 08:06 VOMITING Plan Diagnosis/Plan: Unchanged I have reviewed the history and physical and performed a pertinent physical examination on my patient. No changes have occurred unless specified. Time Spent With Patient Time: Total time managing care of this patient today ____ minutes.
--- NOTE | 2024-08-27 12:32 | W.PM.OPN ---
Operative Note Operative Note Date of Service: 08/27/24 Narrative: Preop diagnosis: 1. Right Carpal tunnel syndrome Postop diagnosis: same Procedure: 1. Right Carpal tunnel release Surgeon: Bonita Omalley MD Armature Winder Repair Helper: Tex LATIF Anesthesia: local block using 1% lidocaine with epinephrine Findings: Thickened transverse carpal ligament. EBL: Less than 5 mL Specimens: None Complications: None Disposition: Brought to recovery room in stable condition Plan: Follow-up for 10-14 days for wound check and suture removal Indications: The patient is 64 years old, with right carpal tunnel syndrome that has been unresponsive to nonoperative management. The risks and benefits of operative treatment including but not limited to risk of damage to blood vessels, nerves, tendons, infection, persistent pain, persistent symptoms, or possible need for additional surgery were discussed with the patient and the patient wishes to proceed with surgery. Procedure: Once consent was obtained a local block was performed using a combination of 1% lidocaine with epinephrine. The patient was then brought back to the operating suite and placed on the operative table in supine position. The right upper extremity was prepped and draped in a standard surgical fashion. Once assured that we had a good block, a 2.0 cm longitudinal incision was made centered over the carpal tunnel. The incision was made through the skin to the subcutaneous tissues using a #15 blade. Dissection was made down to the level of the transverse carpal ligament with care being taken to protect the palmar cutaneous nerve. Once the transverse carpal ligament was clearly visualized, a longitudinal incision was made in the transverse carpal ligament 1st using a #15 blade, then using tenotomy scissors under direct visualization. Care was taken to look for and protect the motor branch of the median nerve when seen in this area. Once satisfied with our carpal tunnel release the wound was copiously irrigated with normal saline and hemostasis was obtained with a brief period of local pressure. The skin edges were reapproximated with some 5.0 nylon suture material and a sterile dressing was applied. The patient appears to have tolerated the procedure well and with no complications. All digits were well vascularized at the conclusion of the case.
[2024-08-27 13:18] VITALS: BP 136/76; PULSE 97; RESP 16; O2SAT 97
== END 2024-08-27 13:20 | disposition home or self-care (01) ==
PROVIDERS: PCP Nurse Practitioner Family; Visit Provider Orthopaedic Surgery
PROC: (CPT 64721; principal; 2024-08-27 12:50)
DX: G56.01 Carpal tunnel syndrome, right upper limb (principal); M79.641 Pain in right hand; R20.0 Anesthesia of skin; R20.2 Paresthesia of skin; E78.00 Pure hypercholesterolemia, unspecified; F32.A Depression, unspecified; F41.9 Anxiety disorder, unspecified; Z79.899 Other long term (current) drug therapy; Z88.5 Allergy status to narcotic agent
CPT/HCPCS: 64721; J0171; J2003

== ENCOUNTER → 2024-08-27 11:16 | Outpatient (BNV) | payer OTHER, SELFPAY | PROVIDERS: PCP Nurse Practitioner Family; Visit Provider Orthopaedic Surgery | DX: G56.01 Carpal tunnel syndrome, right upper limb (principal) | CPT/HCPCS: 64721 ==

== ENCOUNTER 2024-09-11 14:24 | Outpatient (AMB) | payer OTHER, SELFPAY ==
--- NOTE | 2024-09-11 14:27 | MHC.OFFVIS ---
Vital Signs 09/11/24 14:46 Height 5 ft 8 in Weight 203 lb BMI 30.9 Intake Visit Reasons: PO RT CTR 08/27/24 AR Intake Note: Tino is a 64 year old right hand dominant female who presents today post operatively s/p right carpal tunnel release, DOS: 08/27/[address] Omalley. Patient reports pain around the incision, taking Ibuprofen PRN. Denies numbness, tingling, or finger locking. Sutures removed in office today and steri strips applied. Patient would like referral to OT. Allergies codeine [Codeine] Adverse Reaction (Mild, Verified 09/17/24 09:40) NAUSEA & VOMITING oxycodone [From Percodan] Adverse Reaction (Mild, Verified 09/17/24 09:40) NAUSEA & VOMITING HPI HPI PO RT CTR 08/27/24 AR: Details: Tino is a 64 year old right hand dominant female who presents today post operatively s/p right carpal tunnel release, DOS: 08/27/[address] Omalley. Patient reports pain around the incision, taking Ibuprofen PRN. Denies numbness, tingling, or finger locking. Sutures removed in office today and steri strips applied. Patient would like referral to OT. 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 ) Vision needs: No Physical Exam Vital Signs: BMI result Body Mass Index 30.9 Extrem Other: Patient is alert, oriented, and in no acute distress. Neuro: Normal sensation of the tips of all digits of the right hand at this time Vascular: Cap refill brisk Pain: Minimal tenderness to palpation of the incision site on the right volar wrist ROM: With encouragement, patient was able to make a closed fist and extend all digits of the right hand fully Skin: Well approximated and well healing incision site noted on the volar right wrist General: No ecchymosis, erythema, or evidence of infection. Psych: Appears grossly normal Affect normal Attitude cooperative Assessment & Plan Assessment & Plan (1) Stiffness of right hand joint: Code(s): M25.641 - Stiffness of right hand, not elsewhere classified Category: Medical (2) Bilateral carpal tunnel syndrome: Comment: EMG, NCV 03/2024 Code(s): G56.03 - Carpal tunnel syndrome, bilateral upper limbs Category: Medical Plan 1. Status post right carpal tunnel release 2. Stiffness of right hand Patient appears to be recovering well postoperatively Patient is educated about the typical recovery course At this time, patient was referred to occupational therapy for range of motion and strengthening of the right hand Patient was amenable to this plan 3. Carpal tunnel syndrome, left Symptoms intermittent, daily, worse at night I educated the patient about the condition. I discussed both operative and nonoperative treatment options. The patient would like to proceed with surgery. The risks and benefits of operative treatment were discussed with the patient and the patient wishes to proceed with surgery. These risks include, but are not limited to, risk of damage to blood vessels, nerves, tendons, infection, recurrence, incomplete relief of preoperative symptoms, persistent pain, possible need for further surgery, and the risks associated with regional blocks and/or anesthesia. Plan is to take the patient to the operating room at some point in the next few weeks for the following procedures: 1. Left carpal tunnel release under local All of the preoperative paperwork including the consent was discussed today. All of the patient's questions were answered in the clinic today. The patient understands that they will be in contact with our ophthalmic surgical assistant to discuss scheduling their procedure. Patient denies diabetes, blood thinners, asthma, heart issues, lung issues, kidney issues, or current smoking. Orders: Orders OT Evaluation and Treatment 09/11/24 M25.641 - Stiffness of right hand, not elsewhere classified Coding Level of Care Code Est Pt Level 4 (43148) Diagnoses Stiffness of right hand joint M25.641 Bilateral carpal tunnel syndrome G56.03
[2024-09-11 14:46] VITALS: BMI 30.9
== END 2024-09-11 14:56 | disposition home or self-care (01) ==
PROVIDERS: PCP Nurse Practitioner Family
DX: M25.641 Stiffness of right hand, not elsewhere classified (principal); G56.03 Carpal tunnel syndrome, bilateral upper limbs
CPT/HCPCS: 99024

== ENCOUNTER → 2024-09-11 14:24 | Outpatient (BNVA) | payer OTHER, SELFPAY | PROVIDERS: PCP Nurse Practitioner Family | DX: Z47.89 Encounter for other orthopedic aftercare (principal); M25.641 Stiffness of right hand, not elsewhere classified; G56.02 Carpal tunnel syndrome, left upper limb; Z98.890 Other specified postprocedural states | CPT/HCPCS: 99212 ==

== ENCOUNTER 2024-09-17 09:30 | Outpatient (AMB) | payer OTHER, SELFPAY ==
[2024-09-17 09:37] VITALS: BMI 30.9
--- NOTE | 2024-09-17 09:37 | MHC.OFFVIS ---
Vital Signs 09/17/24 09:37 Height 5 ft 8 in Weight 203 lb BMI 30.9 Intake Visit Reasons: OV- RT shoulder MRI review Intake Note: Tino is a 64-year-old male who presents with progressively worsening right shoulder pain and stiffness. He describes his pain as sharp and severe in nature. Most of the pain is along the superior and lateral aspect his shoulder. His symptoms have gotten worse over the last year in spite of continued non operative treatments. He has done physical therapy exercises which aggravated his pain. He has also tried Tylenol and anti-inflammatory medicines which gave him minimal relief. Has also tried a Medrol Dosepak which gave him no relief. He has had cortisone injections in the past. The most recent injection gave him only temporary relief. The patient reports difficulty lifting his right hand above shoulder height. At this point his right shoulder pain is interfering with his ability to work and his ability to sleep well through the night. Allergies codeine [Codeine] Adverse Reaction (Mild, Verified 09/17/24 09:40) NAUSEA & VOMITING oxycodone [From Percodan] Adverse Reaction (Mild, Verified 09/17/24 09:40) NAUSEA & VOMITING Medication List - Last Reconciled 09/17/24 by Anderson Hernandez MD bisacodyl (Dulcolax (bisacodyl)) 20 mg (4 x 5 mg) PO ONCE 1 day methylprednisolone (Medrol (Tray)) PO PER PKG DIR pantoprazole 40 mg PO DAILY polyethylene glycol 3350 (Miralax) 238 grams PO ONCE tadalafil 20 mg PO DAILY PRN tadalafil 5 mg PO DAILY 90 days [facility] Medical History Depression Anxiety Hx of gastroesophageal reflux (GERD) Arthritis High cholesterol Surgical History History of colonoscopy Family History Mother HTN (hypertension) Hypercholesteremia Breast cancer Father HTN (hypertension) Hypercholesteremia Melanoma Cancer Brother Colon cancer Social History Housing: Other (mobile home) Patient Tobacco Use Status: Never used Tobacco e-Cigarette/Vaping Use: Never Used Second Hand Smoke Exposure: No service: No Current occupational status: employed 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 ) Vision needs: No Physical Exam Vital Signs: BMI result Body Mass Index 30.9 Const Other: Well-nourished well-developed very friendly male awake alert and oriented x3 in no acute distress Extrem Other: Bilateral upper extremity examination shows good capillary refill, no skin lesions noted, normal sensation light touch Right shoulder examination shows decreased active and passive range motion when compared to his left shoulder, 4+ out of 5 strength with supraspinatus testing, positive impingement signs, tenderness over his acromioclavicular joint, no instability Results Reviewed Results Reviewed: MRI of the patient's right shoulder show severe acromioclavicular joint narrowing, a type 3 acromion, signal change within the supraspinatus tendon most likely due to adhesive capsulitis Assessment & Plan Assessment & Plan (1) Impingement of right shoulder: Code(s): M25.811 - Other specified joint disorders, right shoulder Category: Medical Plan Mr. Plunkett presents with progressively worsening right shoulder pain and stiffness due to acromioclavicular joint arthritis, impingement syndrome and adhesive capsulitis. I had a lengthy discussion with the patient regarding the treatment options. At this point he has failed continued non operative treatments. The risks and benefits of right shoulder surgery were discussed at length with the patient. The patient wishes to proceed with surgery. Surgery will most likely involve right shoulder diagnostic arthroscopy with distal clavicle excision, acromioplasty, capsular release and manipulation under anesthesia. The patient will be scheduled for next available date. He will follow-up as instructed. Feel free to call me at any time should questions regarding his orthopedic management arise. I spent 20 minutes in reviewing the patient's records and imaging studies, seeing the patient and documenting in the medical record. Coding Level of Care Code Est Pt Level 3 (50896) Complex EM visit Add On G2211 Diagnoses Impingement of right shoulder M25.811
== END 2024-09-17 10:08 | disposition home or self-care (01) ==
PROVIDERS: PCP Nurse Practitioner Family; Visit Provider Orthopaedic Surgery
DX: M25.811 Other specified joint disorders, right shoulder (principal)
CPT/HCPCS: 99213; G2211

== ENCOUNTER → 2024-09-17 09:30 | Outpatient (BNVA) | payer OTHER, SELFPAY | PROVIDERS: PCP Nurse Practitioner Family; Visit Provider Orthopaedic Surgery | DX: M25.811 Other specified joint disorders, right shoulder (principal) | CPT/HCPCS: 99212 ==

== ENCOUNTER 2024-09-29 07:36 | Day surgery (SDC) | payer OTHER, SELFPAY ==
[2024-09-29 07:52] VITALS: BMI 30.3
[2024-09-29 07:56] VITALS: BP 151/88; PULSE 66; RESP 18; TEMP 36.7; O2SAT 96
--- NOTE | 2024-09-29 08:08 | P.OP_ITS ---
Operative Note Operative Note Date of Service: 09/29/24 Narrative: Preop diagnosis: 1. Left Carpal tunnel syndrome Postop diagnosis: same Procedure: 1. Left Carpal tunnel release Surgeon: Bonita Omalley MD C[employer]on Redemption Clerk: Tex LATIF Anesthesia: local block using 1% lidocaine with epinephrine Findings: Thickened transverse carpal ligament. EBL: Less than 5 mL Specimens: None Complications: None Disposition: Brought to recovery room in stable condition Plan: Follow-up for 10-14 days for wound check and suture removal Indications: The patient is 64 years old, with left carpal tunnel syndrome that has been unresponsive to nonoperative management. The risks and benefits of operative treatment including but not limited to risk of damage to blood vessels, nerves, tendons, infection, persistent pain, persistent symptoms, or possible need for additional surgery were discussed with the patient and the patient wishes to proceed with surgery. Procedure: Once consent was obtained a local block was performed using a combination of 1% lidocaine with epinephrine. The patient was then brought back to the operating suite and placed on the operative table in supine position. The left upper extremity was prepped and draped in a standard surgical fashion. Once assured that we had a good block, a 2.0 cm longitudinal incision was made centered over the carpal tunnel. The incision was made through the skin to the subcutaneous tissues using a #15 blade. Dissection was made down to the level of the transverse carpal ligament with care being taken to protect the palmar cutaneous nerve. Once the transverse carpal ligament was clearly visualized, a longitudinal incision was made in the transverse carpal ligament 1st using a #15 blade, then using tenotomy scissors under direct visualization. Care was taken to look for and protect the motor branch of the median nerve when seen in this area. Once satisfied with our carpal tunnel release the wound was copiously irrigated with normal saline and hemostasis was obtained with a brief period of local pressure. The skin edges were reapproximated with some 5.0 nylon suture material and a sterile dressing was applied. The patient appears to have tolerated the procedure well and with no complications. All digits were well vascularized at the conclusion of the case.
--- NOTE | 2024-09-29 08:08 | MHC.SHP ---
Pre-Procedural Eval Section A - 24 Hr Update-Section A only Date of Service: 09/29/24 The patient is an INPATIENT: No Changes since office visit: No Cold of Flu in the past 2 weeks, No New Medical Problems, No Changes in Medication and No Patient answered all questions The patient has been examined within 24 hours of the surgical procedure. The History & Physical has been completed within 30 days and I have reviewed it.: Yes Section B - Complete if H&P > 30 days Chief Complaint: Carpal tunnel syndrome, left upper limb Allergies: Allergies Allergy/AdvReac Type Severity Reaction Status Date / Time codeine [Codeine] AdvReac Mild NAUSEA & Verified 09/29/24 07:57 VOMITING oxycodone [From Percodan] AdvReac Mild NAUSEA & Verified 09/29/24 07:57 VOMITING Plan Diagnosis/Plan: Unchanged I have reviewed the history and physical and performed a pertinent physical examination on my patient. No changes have occurred unless specified. Time Spent With Patient Time: Total time managing care of this patient today ____ minutes.
[2024-09-29 09:05] VITALS: BP 135/81; PULSE 65; RESP 15; TEMP 36.8; O2SAT 95
== END 2024-09-29 09:06 | disposition home or self-care (01) ==
PROVIDERS: PCP Nurse Practitioner Family; Visit Provider Orthopaedic Surgery
PROC: (CPT 64721; principal; 2024-09-29 09:00)
DX: G56.02 Carpal tunnel syndrome, left upper limb (principal); E78.00 Pure hypercholesterolemia, unspecified; F32.A Depression, unspecified; F41.9 Anxiety disorder, unspecified; Z79.1 Long term (current) use of non-steroidal anti-inflammatories (NSAID); Z88.5 Allergy status to narcotic agent; M25.641 Stiffness of right hand, not elsewhere classified; Z98.890 Other specified postprocedural states
CPT/HCPCS: 64721; J0171; J2003

== ENCOUNTER → 2024-09-29 07:36 | Outpatient (BNV) | payer OTHER, SELFPAY | PROVIDERS: PCP Nurse Practitioner Family; Visit Provider Orthopaedic Surgery | DX: G56.02 Carpal tunnel syndrome, left upper limb (principal) | CPT/HCPCS: 64721 ==

== ENCOUNTER 2024-10-02 10:03 | Outpatient (RCR) | payer OTHER, SELFPAY ==
--- NOTE | 2024-09-25 10:29 | MHC.OT.EP ---
[address] [phone] Occupational Therapy Plan of Care Patient Name: Tino Plunkett Date of Evaluation: 09/25/24 Diagnosis: Right Hand Stiffness Pain Location: Right palm at surgical site, radiates through hand and into wrist at times Pt reports it has improved greatly in the last few days Pain Score: 2 Pain Scale Used: Numeric (0 - 10) Aggravating Factors: Gripping, pulling Alleviating Factors: Nothing used currently Assessment: 63 yo male w/ hx of B/L CTS for about a year, he tried nighttime orthoses with no improvement, opted for surgical release. Now post-op CTR 08/27/24 and is scheduled for left CTR 09/29/24. He presents today with bandaid over palm, but removed for assessment at reveals well healing surgical region with minimal edema and light pink new tissue. He has good range in hand and wrist, WFL compared to left side, slight tightness in end range due to arthritis. We have initiated therapy w/ educated on HEP including tendon glides and wrist AROM, as well as soft tissue massage, scar management and light desensitization. I anticipate he will do well w/ course of hand therapy, he is scheduled for left CTR next week and we will also be able to initiate therapy when cleared on left side if desired and order obtained. Frequency and Duration: The patient will be seen 2x/wk for 4 weeks Short Term Goals: Ind w/ soft tissue and scar massage/mobilization Ind w/ HEP Pt to report ease w/ light bimanual FMC tasks (buttons, laces, etc) Fdc Goals: Pain free w/ use of right hand for daily activities Right gross grasp >50lb Ind w/ progression of strengthening Treatment Plan: Therapeutic Exercise Therapeutic Activity Home Exercise Program Patient Education Desensitization/Sensory Re-ed Edema Control ADL Training Paraffin Fluidotherapy MHP Cold Packs Joint Mobilization Soft Tissue Mobilization Kinesiotaping Electronically Signed By: RADHA Dillon/L CHT Please Sign and return to therapist. Thank you once again for your referral.
--- NOTE | 2024-10-16 09:51 | MHC.OT.DC ---
[address] [phone] F: [phone] Occupational Therapy Discharge Note Patient Name: Tino Plunkett Provider: Tex Helm PA-C Diagnosis: Right Hand Stiffness Date of Surgery: 08/27/24 Date of Evaluation: 09/25/24 Date of Discharge: 10/16/24 Treatments to Date: 2 Cancellations to Date: 2 No Shows to Date: 1 Discharge Status: Visit Non-compliance Discharge Summary: Tino was seen for initial eval 09/25/24 after right CTR, he then had left CTR the next week. He was seen for one follow up, but has since missed three appointments. He has been given HEP and educated on scar and edema management, at this time we will be discharging from OT services. Electronically Signed By: Aleksandra Villanueva OTR/L CHT Please Sign and return to therapist, thank you for your referral.
== END 2024-10-16 09:52 | disposition home or self-care (01) ==
LOC: HO.OT 10:03
PROVIDERS: PCP Nurse Practitioner Family
DX: M25.641 Stiffness of right hand, not elsewhere classified (principal)
CPT/HCPCS: 97110; 97140; 97165

== ENCOUNTER → 2024-10-02 12:07 | Outpatient (BNV) | payer OTHER, SELFPAY | PROVIDERS: PCP Nurse Practitioner Family; Visit Provider Internal Medicine | DX: Z01.810 Encounter for preprocedural cardiovascular examination (principal) | CPT/HCPCS: 93010 ==

== ENCOUNTER 2024-10-08 09:55 | Outpatient (AMB) | payer OTHER, SELFPAY ==
--- NOTE | 2024-10-08 10:13 | MHC.OFFVIS ---
Intake Visit Reasons: 2M/BPH/MED REVIEW(TADALAFIL)SET Intake Note: Pt presents to the office today for a 2 month follow up/BPH/Medication review PVR:15mL Allergies codeine [Codeine] Adverse Reaction (Mild, Verified 11/06/24 11:37) NAUSEA & VOMITING oxycodone [From Percodan] Adverse Reaction (Mild, Verified 11/06/24 11:37) NAUSEA & VOMITING HPI Comments Details: Tino is a pleasant male. He is a patient of Dr. Kim. He seen for the following urologic conditions - lower urinary tract symptoms - erectile dysfunction Two month follow-up Had trouble with prescription Re provided today Lower urinary tract symptoms Primarily nocturia Has not used alpha blockers Will trial tadalafil PFSH Medical History Degenerative disc disease, lumbar Degenerative disc disease, cervical Back pain Umbilical hernia GERD (gastroesophageal reflux disease) Nocturia H/O multiple concussions Habitual snoring Murmur Myocardial infarction Depression Anxiety Hx of gastroesophageal reflux (GERD) Arthritis High cholesterol Surgical History H/O eye surgery H/O wisdom tooth extraction Hx of umbilical hernia repair History of carpal tunnel surgery of left wrist History of carpal tunnel surgery of right wrist History of colonoscopy Family History Mother HTN (hypertension) Hypercholesteremia Breast cancer Father HTN (hypertension) Hypercholesteremia Melanoma Cancer Brother Colon cancer Social History Housing: Other Housing Other:: mobile home Are you a primary urgent care technician to a significant other at home: Yes Do you presently have visiting nurse or other home services: No Patient Tobacco Use Status: Never used Tobacco e-Cigarette/Vaping Use: Never Used Second Hand Smoke Exposure: No service: No Current occupational status: employed 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 ) Vision needs: No Review of Systems Const All systems reviewed & are unremarkable except as noted in HPI and below Reports no additional complaints Card Reports no additional complaints and Denies syncope Resp Reports no additional complaints GI Reports no additional complaints Reports as per HPI and Denies change in libido Musc Reports no additional complaints Neuro Denies syncope Psych Denies change in libido Endo Denies change in libido Physical Exam Telemedicine evaluation Appropriate responses Regular breathing rate and rhythm Const General: cooperative, healthy appearing, comfortable and no acute distress Orientation/consciousness: patient oriented x3 HEENT Head: Yes normal to inspection Ears: hearing grossly normal bilaterally Face and sinus: Yes normal facial exam Mouth: moist mucous membranes Eyes General: appearance normal, both eyes and all related structures Neck Neck: Yes normal visual inspection Chest Chest palpation & inspection: normal inspection of the chest Resp Effort & Inspection: normal respiratory effort and able to speak in complete sentences GI Inspection: Yes normal to inspection Back/Spine/Pelvis Cervical Spine: normal cervical lordosis Thoracic/Lumbar Spine: thoracic and lumbar spine normal to inspection Skin General skin exam: no rashes or lesions noted Neuro General: patient oriented x3, gait normal, tone normal and moves all extremities Extrem General: Yes normal to inspection and Yes capillary refill normal Office Procedures Post Void Residual Post Residual Void Post Void Residual (PVR): 15 [id number] Void Residual by ultrasound Telehealth Telehealth Location of provider rendering services: practice address Location of patient: address on file Patient Identification confirmed using: Name, : Yes Telehealth method: voice only Patient verbally consented to treatment: Yes Patient verbally consented to billing insurance company: Yes Patient informed of any privacy concerns related to visit: Yes Assessment & Plan Assessment & Plan (1) Erectile dysfunction: Comment: using tadalafil with + effect declined URo referral Code(s): N52.9 - Male erectile dysfunction, unspecified Category: Medical Qualifiers: Erectile dysfunction type: vasculogenic Vasculogenic erectile dysfunction type: due to arterial insufficiency Qualified Code(s): N52.01 - Erectile dysfunction due to arterial insufficiency (2) BPH associated with nocturia: Code(s): N40.1 - Benign prostatic hyperplasia with lower urinary tract symptoms; R35.1 - Nocturia Category: Medical Plan Three-month follow-up tele Orders: Orders AMB Post Void Residual by ultrasound 10/08/24 N40.1 - Benign prostatic hyperplasia with lower urinary tract symptoms, R35.1 - Nocturia Medications: Refilled tadalafil JASON N [facility] [address] [id number] 5 mg PO DAILY 90 tabs 0RF sexual activity 90 days N40.1 - Benign prostatic hyperplasia with lower urinary tract symptoms, R35.1 - Nocturia Patient Instructions: This note is constructed using voice recognition software. While every effort has been made to ensure accuracy behavior support specialist errors may have been included. Imaging studies, laboratory and physical exam results were discussed and reviewed in detail. No major barriers to patient understanding were identified. An opportunity to ask questions regarding the treatment plan was provided. All questions were answered. The patient expressed understanding and agreement with the above treatment plan. The patient is aware they should contact our office by phone for worsening of their current condition or the appearance of new urologic symptoms. Compliance is encouraged with any medications and followup testing that is ordered. It is a privilege to participate in the urologic care of your patient. If you have any questions or concerns regarding treatment for the above conditions, or other urologic issues, please do not hesitate to contact me. The office telephone contact is [phone]. Sincerely, Dr Prasanna Stephenson MD, [facility] - Urology Compassionate Specialist Care for the Genitourinary System Coding Level of Care Code Est Pt Level 3 (40224) Diagnoses Erectile dysfunction due to arterial insufficiency N52.01 Erectile dysfunction type: vasculogenic Vasculogenic erectile dysfunction type: due to arterial insufficiency BPH associated with nocturia N40.1; R35.1 CPT Codes Post Residual Void - PVR CPT Code: 30957-Sirk Void Residual by ultrasound ([id number])
== END 2024-10-08 10:38 | disposition home or self-care (01) ==
PROVIDERS: PCP Nurse Practitioner Family; Visit Provider Urology
DX: N52.01 Erectile dysfunction due to arterial insufficiency (principal); N40.1 Benign prostatic hyperplasia with lower urinary tract symptoms; R35.1 Nocturia
CPT/HCPCS: 99213

== ENCOUNTER → 2024-10-08 09:55 | Outpatient (BNVA) | payer OTHER, SELFPAY | PROVIDERS: PCP Nurse Practitioner Family; Visit Provider Urology | DX: N40.1 Benign prostatic hyperplasia with lower urinary tract symptoms (principal); N52.01 Erectile dysfunction due to arterial insufficiency; R35.1 Nocturia; Z51.81 Encounter for therapeutic drug level monitoring | CPT/HCPCS: 51798; 99212 ==

== ENCOUNTER 2024-10-09 15:18 | Outpatient (AMB) | payer OTHER, SELFPAY ==
--- NOTE | 2024-10-09 15:34 | A.SPINEOV_ITS ---
Intake Visit Reasons: 3 month f/u after PT Intake Note: Mr. Plunkett is here today for his 3 month F/u after PT. 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 He was previously seen by my PA, Jamison Rodrigues. He was referred for physical therapy for his low back symptoms. He did 2 sessions had to discontinue as he had carpal tunnel release surgery done. He is still having the same symptoms in his neck. He is scheduled to undergo a right shoulder surgery. I told him that I would not recommend any form of surgery on the neck because there is a good chance that the neck pain will improve after the shoulder is fixed. I also reviewed the MRI of the lumbar spine from 8 years ago which is essentially normal. We could repeat an MRI of the lumbar spine but the chances that it will show a significant abnormalities are low. I advised him to return to my clinic if the neck pain does not resolve following the shoulder surgery. I spent 20 minutes in his consult. Marty Granger MD, PhD Spine Fellowship Trained Neurosurgeon Director, [facility] Coding Level of Care Code Est Pt Level 3 (60954) Diagnoses Cervical disc disorder M50.90
== END 2024-10-09 16:03 | disposition home or self-care (01) ==
LOC: HO.HNS 15:19
PROVIDERS: PCP Nurse Practitioner Family; Visit Provider Neurological Surgery
DX: M50.90 Cervical disc disorder, unspecified, unspecified cervical region (principal)
CPT/HCPCS: 99213

== ENCOUNTER → 2024-10-09 15:18 | Outpatient (BNVA) | payer OTHER, SELFPAY | PROVIDERS: PCP Nurse Practitioner Family; Visit Provider Neurological Surgery | DX: M50.90 Cervical disc disorder, unspecified, unspecified cervical region (principal) | CPT/HCPCS: 99212 ==

== ENCOUNTER 2024-10-12 09:26 | Outpatient (REF) | payer OTHER, SELFPAY ==
[2024-10-12 15:11] LABS: Influenza A PCR NEGATIVE (Negative); Influenza B PCR POSITIVE (Negative); Resp Syncy Virus RNA Qual PCR NEGATIVE (Negative); SARS COV2 PCR INHOUSE NEGATIVE (Negative)
== END 2024-10-12 09:27 | disposition home or self-care (01) ==
LOC: HO.LAB 09:26
PROVIDERS: Nurse Practitioner Family; PCP Nurse Practitioner Family
DX: J06.9 Acute upper respiratory infection, unspecified (principal)
CPT/HCPCS: 0241U; 99212

== ENCOUNTER 2024-10-12 09:26 | Outpatient (AMB) | payer OTHER, SELFPAY ==
--- NOTE | 2024-10-12 09:38 | MHC.OFFWIV ---
Intake Vital Signs 10/12/24 09:42 Height 5 ft 8 in Weight 202 lb BMI 30.7 BP 137/81 Blood Pressure Location Rt brachial Position Sitting Respiration 16 Pulse 71 Pulse Source Pulse Oximeter Temp 98.0 F Temp Source Oral Pulse Oximetry (%) 97 Oxygen Delivery Method Room Air Intake Visit Reasons: cough/sore back/test says flu b Intake Note: patient here c/o cough, sore back took a home test and tested positive for Flu B. 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 Allergies codeine [Codeine] Adverse Reaction (Mild, Verified 10/12/24 09:49) NAUSEA & VOMITING oxycodone [From Percodan] Adverse Reaction (Mild, Verified 10/12/24 09:49) NAUSEA & VOMITING Medication List - Last Reconciled 10/12/24 by Domitila Oscar CNP acetaminophen (Tylenol) 650 mg PO Q6H PRN ibuprofen 200 mg PO Q6H PRN multivitamin 1 tab PO DAILY pantoprazole 40 mg PO DAILY tadalafil 20 mg PO DAILY PRN tadalafil 5 mg PO DAILY 90 days Do you need a note to return to daycare/school/sports/work: No HPI HPI Comments History of Present Illness Details 64-year-old male, accompanied by his , presents with complaints of intermittent non productive cough and abdominal and back soreness with coughing. His symptoms started 5 days ago and has been constant. He notes associated night sweats and chills. He denies fever. He has been taking theraful, NyQuil, Tylenol, and applying heating pads with some relief. He tested positive for influenza B at home yesterday. [facility] Medical History Degenerative disc disease, lumbar Degenerative disc disease, cervical Back pain Umbilical hernia GERD (gastroesophageal reflux disease) Nocturia H/O multiple concussions Cough Habitual snoring Murmur Myocardial infarction Depression Anxiety Hx of gastroesophageal reflux (GERD) Arthritis High cholesterol Surgical History H/O wisdom tooth extraction Hx of umbilical hernia repair History of carpal tunnel surgery of left wrist History of carpal tunnel surgery of right wrist History of colonoscopy Family History Mother HTN (hypertension) Hypercholesteremia Breast cancer Father HTN (hypertension) Hypercholesteremia Melanoma Cancer Brother Colon cancer Social History Housing: Other (mobile home) Housing Other:: mobile home Are you a primary pediatric acute care unit nurse to a significant other at home: Yes Do you presently have visiting nurse or other home services: No Patient Tobacco Use Status: Never used Tobacco e-Cigarette/Vaping Use: Never Used Second Hand Smoke Exposure: No service: No Current occupational status: employed 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 ) Vision needs: No Review of Systems Const Details: Denies chills, Denies fatigue, Denies fever(s), Denies headache(s) and Denies weakness Cardiac Denies chest pain, Denies claudication, Denies leg edema, Denies lightheadedness, Denies palpitations, Denies dyspnea, Denies dyspnea on exertion, Denies orthopnea and Denies other (Loss of consciousness) Resp Reports cough, Denies excessive phlegm production, Denies dyspnea, Denies dyspnea on exertion, Denies snoring and Denies wheezing ENT Reports as per HPI Physical Exam Const Other: General: comfortable and no acute distress Orientation/consciousness: patient oriented x3 Chest Chest palpation & inspection: normal inspection of the chest Resp Auscultation: clear to auscultation bilaterally Cardiac Palpation: normal PMI Heart sounds: S1 normal heart sound present, S2 normal heart sound present, no gallops, no murmur, no rubs ENT Head is normocephalic Bilateral ear canal and TM are normal Nasal turbinates and oropharynx are pink and moist Sinuses are nontender with palpation No auricular or cervical lymphadenopathy Assessment & Plan Assessment & Plan (1) Viral upper respiratory illness: Code(s): J06.9 - Acute upper respiratory infection, unspecified Plan: Likely viral illness though possibly allergies No exam evidence of bacterial infection Viral illness There is no antibiotic medication for viruses.? They must run their course.? Most average 5-7 days but 7-10 days is not uncommon and up to 14 days is still possible.? A cough is often the last symptom to resolve and this can last for weeks in some cases. Rest Hydrate well -? Drink plenty of fluids.? Especially water. Ibuprofen as prescribed for muscle aches, headache, fever/discomfort Tamiflu for possible influenza illness Benzonatate for cough Cannot rule out COVID-19/RSV/Flu infection Nasal swab acquired and will be sent to the lab Return for new or worsening symptoms Verbalized understanding and agreed with treatment plan. Medications: New ibuprofen 600 mg PO Q8H PRN 30 tabs 0RF pain benzonatate 100 mg PO BID PRN 10 caps 0RF cough oseltamivir (Tamiflu) 75 mg PO BID 5 days 10 caps 0RF Coding Level of Care Code Est Pt Level 3 (68697) Diagnoses Viral upper respiratory illness J06.9
[2024-10-12 09:42] VITALS: BP 137/81; PULSE 71; RESP 16; TEMP 36.7; O2SAT 97; BMI 30.7
== END 2024-10-12 10:14 | disposition home or self-care (01) ==
PROVIDERS: PCP Nurse Practitioner Family; Visit Provider Nurse Practitioner Family
DX: J06.9 Acute upper respiratory infection, unspecified (principal)

== ENCOUNTER 2024-10-14 09:56 | Outpatient (AMB) | payer OTHER, SELFPAY ==
--- NOTE | 2024-10-14 10:03 | MHC.OFFVIS ---
Vital Signs 10/14/24 10:14 Height 5 ft 8 in Weight 202 lb BMI 30.7 Handedness Right Intake Visit Reasons: PO LT CTR 09/29/24 AR Intake Note: Tino is a 64 year old right hand dominant female who presents today post operatively s/p left carpal tunnel release, DOS: 09/29/24 w/ Dr. Bonita Omalley. Patient reports he is no longer having numbness and tingling. Denies drainage from incision. Sutures removed and steri strips applied. Allergies codeine [Codeine] Adverse Reaction (Mild, Verified 10/14/24 10:15) NAUSEA & VOMITING oxycodone [From Percodan] Adverse Reaction (Mild, Verified 10/14/24 10:15) NAUSEA & VOMITING HPI HPI PO LT CTR 09/29/24 AR: Details: Tino is a 64 year old right hand dominant female who presents today post operatively s/p left carpal tunnel release, DOS: 09/29/24 w/ Dr. Bonita Omalley. Patient reports he is no longer having numbness and tingling. Denies drainage from incision. Sutures removed and steri strips applied. [facility] Medical History (Updated 10/12/24 @ 10:02 by Domitila Oscar CNP) Degenerative disc disease, lumbar Degenerative disc disease, cervical Back pain Umbilical hernia GERD (gastroesophageal reflux disease) Nocturia H/O multiple concussions Cough Habitual snoring Murmur Myocardial infarction Depression Anxiety Hx of gastroesophageal reflux (GERD) Arthritis High cholesterol Surgical History (Updated 10/14/24 @ 10:15 by DOROTHY Berry) History of carpal tunnel release of both wrists H/O wisdom tooth extraction Hx of umbilical hernia repair History of carpal tunnel surgery of left wrist History of carpal tunnel surgery of right wrist History of colonoscopy Family History Mother HTN (hypertension) Hypercholesteremia Breast cancer Father HTN (hypertension) Hypercholesteremia Melanoma Cancer Brother Colon cancer Social History Housing: Other (mobile home) Housing Other:: mobile home Are you a primary medicare insurance specialist to a significant other at home: Yes Do you presently have visiting nurse or other home services: No Patient Tobacco Use Status: Never used Tobacco e-Cigarette/Vaping Use: Never Used Second Hand Smoke Exposure: No service: No Current occupational status: employed 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 ) Vision needs: No Review of Systems Const All systems reviewed & are unremarkable except as noted in HPI and below Physical Exam Vital Signs: BMI result Body Mass Index 30.7 Extrem Other: Patient is alert, oriented, and in no acute distress. Neuro: Normal sensation of the tips of all digits of the left hand at this time Vascular: Cap refill brisk Pain: Minimal tenderness to palpation of the incision site on the left volar wrist ROM: With encouragement, patient was able to make a closed fist and extend all digits of the left hand fully Skin: Well approximated and well healing incision site noted on the volar left wrist General: No ecchymosis, erythema, or evidence of infection. Psych: Appears grossly normal Affect normal Attitude cooperative Assessment & Plan Assessment & Plan (1) Stiffness of right hand joint: Code(s): M25.641 - Stiffness of right hand, not elsewhere classified Category: Medical (2) Bilateral carpal tunnel syndrome: Comment: EMG, NCV 03/2024 Code(s): G56.03 - Carpal tunnel syndrome, bilateral upper limbs Category: Medical Plan 1. Status post left carpal tunnel release Patient appears to be recovering well postoperatively Patient is educated about the typical recovery course At this time, patient was referred to occupational therapy for range of motion and strengthening of the right hand Patient was amenable to this plan Coding Level of Care Code Global (73879) Diagnoses Stiffness of right hand joint M25.641 Bilateral carpal tunnel syndrome G56.03
[2024-10-14 10:14] VITALS: BMI 30.7
== END 2024-10-14 10:18 | disposition home or self-care (01) ==
LOC: HO.HOS 09:57
PROVIDERS: PCP Nurse Practitioner Family
DX: M25.641 Stiffness of right hand, not elsewhere classified (principal); G56.03 Carpal tunnel syndrome, bilateral upper limbs
CPT/HCPCS: 99024

== ENCOUNTER → 2024-10-14 09:56 | Outpatient (BNVA) | payer OTHER, SELFPAY | PROVIDERS: PCP Nurse Practitioner Family | DX: Z47.89 Encounter for other orthopedic aftercare (principal); M25.641 Stiffness of right hand, not elsewhere classified; G56.01 Carpal tunnel syndrome, right upper limb; Z98.890 Other specified postprocedural states | CPT/HCPCS: 99212 ==

== ENCOUNTER 2024-10-17 13:50 | Outpatient (AMB) | payer OTHER, SELFPAY ==
[2024-10-17 13:52] VITALS: BP 128/82; PULSE 72; RESP 16; O2SAT 97; BMI 30.4
--- NOTE | 2024-10-17 13:52 | AM.OFFWIN_ITS ---
Intake Vital Signs 10/17/24 13:52 Height 5 ft 8 in Weight 200 lb BMI 30.4 BP 128/82 Blood Pressure Location Rt brachial Position Sitting Respiration 16 Pulse 72 Pulse Source Pulse Oximeter Pulse Oximetry (%) 97 Oxygen Delivery Method Room Air Intake Visit Reasons: EP-Cough Intake Note: Pt is here today for a cough: pt states he tested positive for influenza B on Saturday: Sx's not getting better Patient Tobacco Use Status: Never used Tobacco Allergies codeine [Codeine] Adverse Reaction (Mild, Verified 10/17/24 13:53) NAUSEA & VOMITING oxycodone [From Percodan] Adverse Reaction (Mild, Verified 10/17/24 13:53) NAUSEA & VOMITING Medication List - Last Reconciled 10/17/24 by GABRIEL Feldman- ibuprofen 600 mg PO Q8H PRN multivitamin 1 tab PO DAILY pantoprazole 40 mg PO DAILY tadalafil 20 mg PO DAILY PRN tadalafil 5 mg PO DAILY 90 days HPI HPI Comments History of Present Illness Details History - The patient is a 64-year-old male pres enting with influenza type B with persistent cough. - Diagnosed with influenza type B alberto carty in the week and prescribed Tamiflu. - Continued to experience a persistent c ough and used Tesson as additional treatment. - Conducted a negative home test for COV ID-19. - Reported significant back pain due to ongoing severe cough. - Reported mild improvement in symptoms but remains primarily in bed. Denies fever, chills, chest pain, hemoptysis. Has surgery and colon planned for next week and wants to be better to proceed as planned. Exam Awake alert NAD RRR Coarse rhonci BLL worse on R, congested hacking paroxysmal cough Results CXR done today: prelim eval by myself shows opacity in the RUL, final read pending Discussion Notes I discussed with the patient the high likelihood of influenza type B leading to secondary bacterial pneumonia, given the persistent cough and continued symptoms. I advised the patient regarding the importance of obtaining a chest x- ray to rule out pneumonia and discussed the logistics for him to proceed to the x-ray facility. I explained the potential complications of untreated pneumonia and emphasized timely diagnostics. We also discussed his existing symptoms, including back pain from coughing, and his current medication regimen. I reiterated the importance of continued evaluation and addressing the symptoms actively to prevent further complications. Assessment and Plan Pneumonia s/p flu B: Pt made aware of prelim finding, with final read pending he completed tamiflu today Start Zpak, take as directed cancel colonoscopy scheduled saturday alert ortho surgical team as you most likely will need to r/s shoulder surgery planned for Saturday Ok to cont OTC analgesics and cough suppressants Edu on reasons to seek additional care. Consent Patient was informed and verbally consented to the use of an ambient scribe for clinic note documentation during this visit. Total time spent caring for the patient today was 30 minutes. This includes time spent before the visit reviewing the chart, time spent during the visit, and time spent after the visit on documentation, reviewing laboratory results, diagnostic imaging, medications, performing a medically necessary evaluation, counseling on diagnoses, care coordination, ordering appropriate tests, ordering appropriate medications, review of tests performed by other providers, reporting test results with the patient, communication with other healthcare providers. [facility] Medical History (Updated 10/17/24 @ 14:40 [facility] Anxiety Arthritis Back pain Degenerative disc disease, cervical Degenerative disc disease, lumbar Depression GERD (gastroesophageal reflux disease) H/O multiple concussions Habitual snoring High cholesterol Hx of gastroesophageal reflux (GERD) Murmur Myocardial infarction Nocturia Umbilical hernia Surgical History (Updated 10/16/24 @ 13:53 by Bere Tavares RN) H/O wisdom tooth extraction History of carpal tunnel surgery of left wrist History of carpal tunnel surgery of right wrist History of colonoscopy Hx of umbilical hernia repair Family History Mother HTN (hypertension) Hypercholesteremia Breast cancer Father HTN (hypertension) Hypercholesteremia Melanoma Cancer Brother Colon cancer Social History Housing: Other (mobile home) Housing Other:: mobile home Are you a primary direct care professional to a significant other at home: Yes Do you presently have visiting nurse or other home services: No Patient Tobacco Use Status: Never used Tobacco e-Cigarette/Vaping Use: Never Used Second Hand Smoke Exposure: No service: No Current occupational status: employed 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 ) Vision needs: No Physical Exam Vital Signs: Last Vital Signs Pulse 72 10/17/24 13:52 Resp 16 10/17/24 13:52 BP 128/82 10/17/24 13:52 Pulse Ox 97 10/17/24 13:52 Oxygen Delivery Method Room Air 10/17/24 13:52 BMI result Body Mass Index 30.4 Results Reviewed Results Reviewed: [facility] [address] [place] [address] Ic Design Manager: Dangelo Milner M.D. Specimen Inquiry Name: Tino Plunkett Age/Sex: 64/M : 1960 Unit#: [id number] Attend Dr: [facility],Walk-In [facility]. Re10/12/24 Status: DEP REF Location: [facility] Disch: SPEC : [id number] DINA: 10/12/24 STATUS: COMP REQ : [id number] RECD: 10/12/[address]: Domitila Oscar CNP COMP: 10/12/24 ENTERED: 10/12/[address]: Renee Quiroz [facility]In [facility]. ORDERED: SARS/FLU/RSV Test Result Flag Reference Influenza A PCR NEGATIVE Negative Influenza B PCR POSITIVE A Negative RSV RNA QualPCR NEGATIVE Negative SARSCOV2 RT-PCR NEGATIVE Negative All test results must be correlated with clinical findings. Assessment & Plan Assessment & Plan (1) Pneumonia: Code(s): J18.9 - Pneumonia, unspecified organism Qualifiers: Pneumonia type: due to unspecified organism Lung location: upper lobe of lung (2) Cough: Code(s): R05.9 - Cough, unspecified Qualifiers: Cough type: acute Qualified Code(s): R05.1 - Acute cough (3) Influenza B: Code(s): J10.1 - Influenza due to other identified influenza virus with other respiratory manifestations Plan . Orders: Orders XR chest 2V Today R05.9 - Cough, unspecified Medications: New azithromycin For 250 mg dose pack: take 500 mg today (day 1), then 250 mg for 4 days (days 2-5) PO 6 tabs 0RF 5 days Coding Level of Care Code Est Pt Level 4 (14099) Diagnoses Pneumonia J18.9 Pneumonia type: due to unspecified organism Lung location: upper lobe of lung Acute cough R05.1 Cough type: acute Influenza B J10.1
== END 2024-10-17 14:37 | disposition home or self-care (01) ==
LOC: HO.HMCWIC 13:50
PROVIDERS: PCP Nurse Practitioner Family; Visit Provider Nurse Practitioner Family
DX: J18.9 Pneumonia, unspecified organism (principal); R05.1 Acute cough; J10.1 Influenza due to other identified influenza virus with other respiratory manifestations

== ENCOUNTER 2024-10-17 13:50 | Outpatient (REF) | payer OTHER, SELFPAY ==
--- NOTE | ~2024-10-17 | XR_ITS ---
CLINICAL HISTORY: R05.9 - Cough, unspecified 2 view chest x-ray Comparison: None Findings: The lungs are clear. Heart size is normal. No acute fracture. IMPRESSION: 1. No acute findings. This document has been electronically signed by: Yessy Santos MD on 10/17/2024 14:44:08
== END 2024-10-17 13:51 | disposition home or self-care (01) ==
LOC: HO.HMGCX 13:50
PROVIDERS: PCP Nurse Practitioner Family; Visit Provider Nurse Practitioner Family
DX: J18.9 Pneumonia, unspecified organism (principal); R05.1 Acute cough; J10.1 Influenza due to other identified influenza virus with other respiratory manifestations
CPT/HCPCS: 71046; 99212

== ENCOUNTER → 2024-10-17 14:12 | Outpatient (BNV) | payer OTHER, SELFPAY | PROVIDERS: PCP Nurse Practitioner Family; Visit Provider Nuclear Medicine | DX: R05.9 Cough, unspecified (principal) | CPT/HCPCS: 71046 ==

== ENCOUNTER 2024-10-23 09:56 | Day surgery (SDC) | payer OTHER, SELFPAY ==
--- NOTE | 2024-10-02 | ECG_ITS ---
Test Reason : preop Blood Pressure : */* mmHG Vent. Rate : 66 BPM Atrial Rate : 66 BPM P-R Int : 136 ms QRS Dur : 84 ms QT Int : 400 ms P-R-T Axes : 47 63 61 degrees QTcB Int : 419 ms Normal sinus rhythm with sinus arrhythmia Normal ECG When compared with ECG of 14-Dec-2004 06:37, No significant change was found Referred By: Sangeetha Guardado Electronically Signed By: LANE BURRELL
[2024-10-02 11:45] VITALS: BP 152/95; PULSE 62; RESP 16; O2SAT 96; BMI 31.2
--- NOTE | 2024-10-02 11:51 | HO.ANESPROP2 ---
Documented by User: Sangeetha Guardado NP 10/22/24 09:11 HPI - Anesthesia Eval Consult details Narrative: 64yo M for Right Shoulder Arthroscopy, distal clavicle excision, acromioplasty, capsular release, manipulation, 10/23/24 ?DC 20 years ago - was admitted through ER but d/t insurance issue, left ama and no follow up. No issues since No CP/SOB with heavy exercise - stopped for about 2 months d/t shoulder pain After PAT: Pt was seen in Walk In clinic 10/19/24 for ongoing cough with recent Flu. Rx'd Zpack. CXR WNL. Unable to reach patient for phone eval 10/22/24 PMF Active Problems Active Problems: All Active Problems Stiffness of right hand joint (Acute) Cervical disc disorder (Acute) Lumbar degenerative disc disease (Acute) Cervical stenosis of spinal canal (Acute) Seborrheic keratosis (Acute) Impingement of right shoulder (Acute) Neck pain, bilateral (Acute) Bilateral carpal tunnel syndrome (Acute) Screen for colon cancer (Acute) Right shoulder pain (Acute) PVD (peripheral vascular disease) (Acute) Erectile dysfunction (Acute) Hyperlipidemia (Acute) BPH associated with nocturia (Acute) ASHWIN (generalized anxiety disorder) (Acute) MDD (major depressive disorder), recurrent episode (Acute) Encounter for general adult medical examination with abnormal findings (Acute) Insomnia (Acute) Paresthesia of both hands (Acute) GERD (gastroesophageal reflux disease) (Acute) Right shoulder tendinitis (Acute) Contact with or exposure to other viral diseases (Acute) Past Medical History Medical History Degenerative disc disease, lumbar Degenerative disc disease, cervical Back pain Umbilical hernia GERD (gastroesophageal reflux disease) Nocturia H/O multiple concussions Habitual snoring Murmur Myocardial infarction Depression Anxiety Hx of gastroesophageal reflux (GERD) Arthritis High cholesterol Family History Family History Mother HTN (hypertension) Hypercholesteremia Breast cancer Father HTN (hypertension) Hypercholesteremia Melanoma Cancer Brother Colon cancer Family history of problems with anesthesia: No Surgical History Surgical History H/O eye surgery H/O wisdom tooth extraction Hx of umbilical hernia repair History of carpal tunnel surgery of left wrist History of carpal tunnel surgery of right wrist History of colonoscopy History of Problems with Anesthesia: No Social History Social History Housing: Other (mobile home) Housing Other:: mobile home Are you a primary transition of care specialist to a significant other at home: No Do you presently have visiting nurse or other home services: No Patient Tobacco Use Status: Never used Tobacco e-Cigarette/Vaping Use: Never Used Second Hand Smoke Exposure: No Use of substances other than those prescribed or required for medical reasons: Yes Substance Use Frequency: Daily Have you been hit, kicked, punched, or otherwise hurt by someone within the past year? 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 ) Vision needs: No Meds Allergies Allergy/AdvReac Type Severity Reaction Status Date / Time codeine [Codeine] AdvReac Mild NAUSEA & Verified 10/17/24 13:53 VOMITING oxycodone [From Percodan] AdvReac Mild NAUSEA & Verified 10/17/24 13:53 VOMITING Home Medications ?Medication ?Instructions ?Recorded ?Confirmed ?Last Taken ?Type multivitamin 1 tab PO DAILY 10/02/24 10/23/24 Unknown History Exam Pertinent Lab Results Pertinent Lab Results: Lab Results 10/02/24 Range/Units 12:26 WBC 6.0 (4.8-10.8) X10*3/uL RBC 4.93 (4.60-5.80) X10*6/uL Hgb 15.0 (14.0-18.0) g/dl Hct 45.0 (42.0-52.0) % MCV 91.3 (80.0-98.0) fL MCH 30.4 (27.0-33.0) pg MCHC 33.3 (31.0-36.0) g/dl RDW 13.4 (11.0-16.0) % Plt Count 270 (160-400) X10*3/uL MPV 9.9 (9.4-12.4) fL Absolute Nucleated RBC 0.000 (0.0-0.012) X10*3/uL Nucleated RBC % (auto) 0.0 (0.0-0.2) /100WBC Sodium 141 (135-145) mmol/L Potassium 4.3 (3.3-5.1) mmol/L Chloride 108 (96-108) mmol/L Carbon Dioxide 27 (22-29) mmol/L Anion Gap 10 L (12-20) BUN 17 H (9-16) mg/dL Creatinine 0.98 (0.5-1.4) mg/dL Estim Creat Clear Calc 85.3 Estimated GFR > 60 Random Glucose 85 (60-115) mg/dL Calcium 9.6 (8.4-10.2) mg/dL Narrative Narrative: EKG 09/2024 Vent. Rate : 66 BPM Atrial Rate : 66 BPM P-R Int : 136 ms QRS Dur : 84 ms QT Int : 400 ms P-R-T Axes : 47 63 61 degrees QTcB Int : 419 ms Normal sinus rhythm with sinus arrhythmia Normal ECG When compared with ECG of 14-Dec-2004 06:37, No significant change was found CXR 09/2024 Findings: The lungs are clear. Heart size is normal. No acute fracture. IMPRESSION: 1. No acute findings. Airway Mallampati Class: II TM Dist: >3cm Neck ROM: Full Partial: Upper Heart: RRR Lungs: CTAB Assessment and Plan Assessment Anesthesia Assessment: Anesthesia Plan Discussed and PAT Visit Final Anesthetic Review Family History of Problems with Anesthesia: No History of Problems with Anesthesia: No Documented by User: Daina Burch MD 10/23/24 10:31 [facility] Past Medical History Medical History Degenerative disc disease, lumbar Degenerative disc disease, cervical Back pain Umbilical hernia GERD (gastroesophageal reflux disease) Nocturia H/O multiple concussions Habitual snoring Murmur Myocardial infarction Depression Anxiety Hx of gastroesophageal reflux (GERD) Arthritis High cholesterol Family History Family History Mother HTN (hypertension) Hypercholesteremia Breast cancer Father HTN (hypertension) Hypercholesteremia Melanoma Cancer Brother Colon cancer Surgical History Surgical History H/O eye surgery H/O wisdom tooth extraction Hx of umbilical hernia repair History of carpal tunnel surgery of left wrist History of carpal tunnel surgery of right wrist History of colonoscopy Social History Social History Housing: Other (mobile home) Housing Other:: mobile home Are you a primary transition of care specialist to a significant other at home: No Do you presently have visiting nurse or other home services: No Patient Tobacco Use Status: Never used Tobacco e-Cigarette/Vaping Use: Never Used Second Hand Smoke Exposure: No Use of substances other than those prescribed or required for medical reasons: Yes Substance Use Frequency: Daily Have you been hit, kicked, punched, or otherwise hurt by someone within the past year? 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 ) Vision needs: No Meds Allergies Allergy/AdvReac Type Severity Reaction Status Date / Time codeine [Codeine] AdvReac Mild NAUSEA & Verified 10/17/24 13:53 VOMITING oxycodone [From Percodan] AdvReac Mild NAUSEA & Verified 10/17/24 13:53 VOMITING Home Medications ?Medication ?Instructions ?Recorded ?Confirmed ?Last Taken ?Type multivitamin 1 tab PO DAILY 10/02/24 10/23/24 Unknown History Assessment and Plan Assessment Anesthesia Assessment: Chart Reviewed Final Anesthetic Review NPO: Yes ASA Class: III Final Preanesthetic Review: No Changes in Pt Med Stat, Meds/Allgs Chart Reviewed, Consent Obtained/Reviewed and Anes Risks/Benef Reviewed Patient Risk: Low Procedure Risk: Intermediate Anesthetic Plan Anesthetic Plan: GA, Regional Block and Agree w/ Assess. and Plan Disposition: Standard PACU
[2024-10-02 12:43] LABS: Mean Corpuscular HGB Conc 33.3 g/dl (31.0-36.0); Mean Corpuscular Hemoglobin 30.4 pg (27.0-33.0); Mean Corpuscular Volume 91.3 fL (80.0-98.0); Mean Platelet Volume 9.9 fL (9.4-12.4); Platelet Count 270 X10*3/uL (160-400); Red Blood Count 4.93 X10*6/uL (4.60-5.80); Red Cell Distribution Width 13.4 % (11.0-16.0)
[2024-10-02 13:04] LABS: Anion Gap 10 (12-20); Blood Urea Nitrogen 17 mg/dL (9-16); Calcium 9.6 mg/dL (8.4-10.2); Carbon Dioxide 27 mmol/L (22-29); Chloride 108 mmol/L (96-108); Creatinine Clr Calc Pharmacy 85.3; Estimated Glomerular Filt Rate > 60; Glucose Random 85 mg/dL (60-115); Potassium 4.3 mmol/L (3.3-5.1); Sodium 141 mmol/L (135-145)
[2024-10-23] VITALS (7 sets, daily range): BP systolic 113–125; BP diastolic 63–81; PULSE 72–93; RESP 12–20; TEMP 36.2–36.8; O2SAT 97–98; BMI 30.2
[2024-10-23] MEDS: Lactated Ringers 1,000 ML 100 ML IVCONT (10:23)
[2024-10-23] MEDS: Albuterol Sulfate (0.083%) 2.5 MG/3 ML VIAL.NEB INHALE (10:30)
--- NOTE | 2024-10-23 10:47 | PC.NURSE ---
Patient in preop. Finished oral antibiotics 2-3 days ago for pneumonia. Coughing intermittently in preop, no sputum production per patient. Lungs clear, SaO2 97%. Dr. Burch made aware. Albuterol nebulizer ordered preop, administered, tolerated well.
[2024-10-23] MEDS: ceFAZolin Sodium/Dextrose,Iso 2 GM/50 ML PIGGYBACK IV (11:15)
--- NOTE | 2024-10-23 12:37 | PM.OP ---
Brief Operative Note Date of Service: 10/23/24 Pre-op diagnosis: Right shoulder impingement syndrome, right shoulder acromioclavicular joint arthritis, right shoulder adhesive capsulitis Post-op diagnosis: same Procedure: Right shoulder arthroscopic distal clavicle excision, right shoulder arthroscopic acromioplasty, right shoulder arthroscopic anterior capsular release, right shoulder manipulation under anesthesia Implants: none Surgeon: Anderson Hernandez MD Anesthesia: GETA and regional Was an Engineering [employer]essionals used for this Procedure?: No Estimated blood loss (mL): 10 Pathology: none sent Condition: stable Disposition: PACU
--- NOTE | 2024-10-23 12:38 | P.OP_ITS ---
Operative Note Operative Note Date of Service: 10/23/24 Narrative: After the patient was identified as Tino Plunkett and his right shoulder was initialed by myself the patient was brought to the holding area where a right shoulder interscalene regional block was performed by the anesthesiologist in routine fashion. The patient was then brought to the operating room where general anesthesia was induced by the anesthesiologist in routine fashion. The patient was given 2 g of IV Ancef preoperatively for infection prophylaxis. Examination under anesthesia of the patient's right shoulder showed decreased passive range of motion when compared to the left shoulder. The patient's right shoulder had passive forward flexion to 140 degrees compared to 170 degrees, external rotation to 30 degrees compared to 60 degrees, and internal rotation to 50 degrees compared to 60 degrees. The patient was gently positioned in the beach chair position with all bony prominences well padded. The patient's right shoulder region and upper extremity were prepped and draped in sterile fashion. A formal time-out was completed. A #11 scalpel blade was used to make a posterior portal 2 cm inferior and 1 cm medial to the posterolateral corner of the acromion. Blunt trocar technique was used to enter the glenohumeral joint in routine fashion. An anterior portal was made just lateral to the coracoid process after proper positioning was confirmed using a spinal needle. Diagnostic arthroscopy showed minimal degenerative changes of the glenoid and humeral head articular surfaces. There was no evidence of rotator cuff tearing. There was no evidence of injury to the biceps tendon or its insertion onto the glenoid. There was inflammation of the anterior joint capsule consistent with adhesive capsulitis. The ArthroCare Wand was then used to perform an anterior capsular release between the inferior border of the biceps tendon and the superior border of the subscapularis tendon. The arthroscope was then placed from the posterior portal into the subacromial space. A lateral portal was made 2 fingerbreadths lateral to the anterior lateral corner of the acromion. The ArthroCare Wand was used to ablate soft tissues along the undersurface of the acromion as well as to excise the coracoacromial ligament. There was a sharp spur along the undersurface of the acromion which was removed using the hooded bur. The arthroscope was then placed into the lateral portal and the acromiop lasty was completed with the bur in the posterior portal using the posterior aspect of the acromion as a cutting block. The ArthroCare Wand was then brought in through the anterior portal and was used to ablate soft tissues along the acromioclavicular joint and distal clavicle. The posterior and superior ligamentous structures were left intact. A distal clavicle excision of 8 mm was performed using the fluted bur. Any remaining bursal tissue was removed using the arthroscopic shaver. The subacromial space was irrigated and then drained. All arthroscopic instruments were removed. A gentle manipulation under anesthesia was then performed. Full passive range of motion was easily attained. The 3 portals were closed with 3-0 nylon interrupted suture. The subacromial space was injected with Marcaine. Dry sterile dressing was placed over all incisions. The patient's right upper extremity was placed into a sling. The patient was awoken and extubated in the operating room. The patient was transferred to the recovery room in stable condition.
[2024-10-23] MEDS: cefTRIAXone sodium 1 GM VIAL IVPUSH (13:03)
[2024-10-23] MEDS: ondansetron HCL 4 MG/2 ML VIAL IVPUSH (13:13)
== END 2024-10-23 14:04 | disposition home or self-care (01) ==
PROVIDERS: Nurse Practitioner; PCP Nurse Practitioner Family; Visit Provider Orthopaedic Surgery
PROC: (CPT 29805; principal; 2024-10-23 13:00)
DX: M75.41 Impingement syndrome of right shoulder (principal); M75.01 Adhesive capsulitis of right shoulder; M19.011 Primary osteoarthritis, right shoulder; M25.611 Stiffness of right shoulder, not elsewhere classified; M25.511 Pain in right shoulder; E78.00 Pure hypercholesterolemia, unspecified; F32.A Depression, unspecified; F41.9 Anxiety disorder, unspecified; Z79.899 Other long term (current) drug therapy; Z88.5 Allergy status to narcotic agent
CPT/HCPCS: 29824; 29825; 29826; 36415; 80048; 85027; 93005; J0131; J0171; J0665; J0690; J0696; J1100; J2003; J2250; J2405; J2704; J2795; J3010

== ENCOUNTER → 2024-10-23 09:56 | Outpatient (BNV) | payer OTHER, SELFPAY | PROVIDERS: PCP Nurse Practitioner Family; Visit Provider Orthopaedic Surgery | DX: M75.41 Impingement syndrome of right shoulder (principal); M75.01 Adhesive capsulitis of right shoulder; M19.011 Primary osteoarthritis, right shoulder | CPT/HCPCS: 29824; 29826 ==

== ENCOUNTER 2024-11-05 | Outpatient (REF) | payer OTHER, SELFPAY ==
--- NOTE | ~2024-11-05 | XR_ITS ---
EXAMINATION: XR KNEE 4 VIEWS BILATERAL HISTORY: M25.569 - Pain in unspecified knee COMPARISON: There are no prior studies available for comparison. FINDINGS: Eight views of the bilateral knees are submitted. Osseous mineralization is normal. There is no fracture or dislocation. There is very slight narrowing of the medial and patellofemoral compartments of both knees. The soft tissues are unremarkable. There is no joint effusion. XR/XR Knee Kenton 4V IMPRESSION: Very slight narrowing of the medial and patellofemoral compartments of both knees. Electronically signed by: Melchor Bear MD 11/06/2024 07:48 AM EDT
== END 2024-11-05 00:01 | disposition home or self-care (01) ==
LOC: HO.XRAY
PROVIDERS: PCP Nurse Practitioner Family; Visit Provider Nurse Practitioner Family
DX: M25.811 Other specified joint disorders, right shoulder (principal); M25.569 Pain in unspecified knee; M25.469 Effusion, unspecified knee
CPT/HCPCS: 73564; 99212

== ENCOUNTER → 2024-11-05 13:47 | Outpatient (BNV) | payer OTHER, SELFPAY | PROVIDERS: PCP Nurse Practitioner Family; Visit Provider Radiology Diagnostic Radiology | DX: M25.569 Pain in unspecified knee (principal) | CPT/HCPCS: 73564 ==

== ENCOUNTER 2024-11-05 14:23 | Outpatient (AMB) | payer OTHER, SELFPAY ==
--- NOTE | 2024-11-05 14:46 | MHC.OFFVIS ---
Vital Signs 11/05/24 14:48 Height 5 ft 8 in Weight 200 lb BMI 30.4 Intake Visit Reasons: PO-Rt Shld 10/23/24 Intake Note: Dimitrios is a 64 year old male who presents today for a post operative visit s/p right shoulder , DOS 10/23/24. Patient reports he was discouraged due to his pain, however today he feels his pain has been getting better. He does his at home exercises, he does have difficulty with some of the stretches due to recent bilateral CTR. Allergies codeine [Codeine] Adverse Reaction (Mild, Verified 11/06/24 11:37) NAUSEA & VOMITING oxycodone [From Percodan] Adverse Reaction (Mild, Verified 11/06/24 11:37) NAUSEA & VOMITING HPI HPI PO-Rt Shld 10/23/24 DR: Details: 64-year-old gentleman returns to the office today status post right shoulder arthroscopy on 10/23/[address] Hernandez. He states he has been having some difficulty with managing his pain however over the last day or so it has improved. [facility]LY [facility] Medical History Degenerative disc disease, lumbar Degenerative disc disease, cervical Back pain Umbilical hernia GERD (gastroesophageal reflux disease) Nocturia H/O multiple concussions Habitual snoring Murmur Myocardial infarction Depression Anxiety Hx of gastroesophageal reflux (GERD) Arthritis High cholesterol Surgical History H/O eye surgery H/O wisdom tooth extraction Hx of umbilical hernia repair History of carpal tunnel surgery of left wrist History of carpal tunnel surgery of right wrist History of colonoscopy Family History Mother HTN (hypertension) Hypercholesteremia Breast cancer Father HTN (hypertension) Hypercholesteremia Melanoma Cancer Brother Colon cancer Social History Housing: Other (mobile home) Housing Other:: mobile home Are you a primary home care coordinator to a significant other at home: No Do you presently have visiting nurse or other home services: No Patient Tobacco Use Status: Never used Tobacco e-Cigarette/Vaping Use: Never Used Second Hand Smoke Exposure: No service: No Current occupational status: employed 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 ) Vision needs: No Review of Systems Const All systems reviewed & are unremarkable except as noted in HPI and below Physical Exam Vital Signs: BMI result Body Mass Index 30.4 Extrem Other: Right shoulder incision clean dry and intact. No erythema or drainage. Results Reviewed Results Reviewed: Brief Operative Note Date of Service: 10/23/24 Pre-op diagnosis: Right shoulder impingement syndrome, right shoulder acromioclavicular joint arthritis, right shoulder adhesive capsulitis Post-op diagnosis: same Procedure: Right shoulder arthroscopic distal clavicle excision, right shoulder arthroscopic acromioplasty, right shoulder arthroscopic anterior capsular release, right shoulder manipulation under anesthesia Implants: none Surgeon: Anderson Hernandez MD Assessment & Plan Assessment & Plan (1) Impingement of right shoulder: Code(s): M25.811 - Other specified joint disorders, right shoulder Category: Medical Plan Sutures removed today Steri-Strips applied. An order for physical therapy was placed to work on range of motion rotator cuff and periscapular stabilization. I recommend he avoid excessive reaching overhead or repetitive motions for the next 4-6 weeks to avoid irritation. He will increase activities as tolerated and see us back in [address] Hernandez sooner if needed. Coding Level of Care Code Global (19040) Diagnoses Impingement of right shoulder M25.811
[2024-11-05 14:48] VITALS: BMI 30.4
== END 2024-11-05 15:59 | disposition home or self-care (01) ==
LOC: HO.HOS 14:24
PROVIDERS: PCP Nurse Practitioner Family; Visit Provider Physician Assistant
DX: M25.811 Other specified joint disorders, right shoulder (principal)
CPT/HCPCS: 99024

== ENCOUNTER 2024-11-06 10:30 | Outpatient (AMB) | payer OTHER, SELFPAY ==
--- NOTE | 2024-11-06 09:12 | A.OFFPC_ITS ---
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: No Allergies codeine [Codeine] Adverse Reaction (Mild, Verified 11/06/24 11:37) NAUSEA & VOMITING oxycodone [From Percodan] Adverse Reaction (Mild, Verified 11/06/24 11:37) NAUSEA & VOMITING Medication List - Last Reconciled 11/06/24 by NIKOLAI FeldmanP- ibuprofen 600 mg PO Q8H PRN multivitamin 1 tab PO DAILY pantoprazole 40 mg PO DAILY tadalafil 5 mg PO DAILY 90 days Tobacco use date assessed: 11/06/24 Dental Screening Dental Screen Date: 11/06/24 Did you have a dental visit in the last 12 months?: Yes Did you have a dental problem in the last 6 months where you did not have access to dental care?: No Was dental information given to patient?: Patient has dentist HPI HPI Comments History of Present Illness Details Telehealth visit to esteban c/o R knee pain. - The patient is a 64-year-old male pres enting with right knee pain. - He reports significant pain in the rig ht knee, correlating with a recent brief period of physical activity after prolonged immobilization due to prior surgeries and illness. - He experiences substantial swelling in the right leg, which fluctuates in intensity and partially responds to ibuprofen and ice. - Mobility is severely impaired, with th e patient unable to move for more than a few minutes without significant exacerbation of pain. - He contacted the office and requested an Xray to be done, results of bilat knee xray below. - Recent x-rays indicated no notable bon e abnormalities. - Denies chest pain or SOB. Assessment and Plan 1. Knee Pain, Right The patient presents with severe right knee pain exacerbated by activity, relieved with NSAIDs and ice, assoc w/ swelling, acute onset in post-op period, . Normal x-rays suggest no bone pathology. Suspected Deep Vein Thrombosis (DVT) Due to the patient's immobilization and recent surgeries, there's a potential concern for DVT. An ultrasound is ordered stat to rule out DVT. Further cristian gement depends on the ultrasound results, and the patient will be informed accordingly. Telehealth Attestation This telehealth encounter was conducted via phone, and the documentation accurately reflects the information discussed and the management plans outlined with the patient. The patient has been explained that this is an interactive (audio/video) telehealth encounter and what that consists of. The patient understands and wishes to proceed. [employer] platform was used. Total time spent caring for the patient today was 45 minutes. This includes time spent before the visit reviewing the chart, time spent during the visit, and time spent after the visit on documentation, reviewing laboratory results, diagnostic imaging, medications, performing a medically necessary evaluation, counseling on diagnoses, care coordination, ordering appropriate tests, ordering appropriate medications, review of tests performed by other providers, reporting test results with the patient, communication with other healthcare providers. Patient: Tino Plunkett MR#: [id number] : 1960 Acct:[id number] Age/Sex: 64 / M ADM Date: 11/05/24 Loc: [facility] Attending Dr: Renee [facility] Ordering Physician: Renee Quiroz Date of Service: 11/05/24 Procedure(s): XR Knee Kenton 4V Accession Number(s): [id number] cc: Renee Quiroz~ EXAMINATION: XR KNEE 4 VIEWS BILATERAL HISTORY: M25.569 - Pain in unspecified knee COMPARISON: There are no prior studies available for comparison. FINDINGS: Eight views of the bilateral knees are submitted. Osseous mineralization is normal. There is no fracture or dislocation. There is very slight narrowing of the medial and patellofemoral compartments of both knees. The soft tissues are unremarkable. There is no joint effusion. XR/XR Knee Kenton 4V IMPRESSION: Very slight narrowing of the medial and patellofemoral compartments of both knees. Electronically signed by: Melchor Bear MD 11/06/2024 07:48 AM EDT [facility] Medical History Degenerative disc disease, lumbar Degenerative disc disease, cervical Back pain Umbilical hernia GERD (gastroesophageal reflux disease) Nocturia H/O multiple concussions Habitual snoring Murmur Myocardial infarction Depression Anxiety Hx of gastroesophageal reflux (GERD) Arthritis High cholesterol Surgical History H/O eye surgery H/O wisdom tooth extraction Hx of umbilical hernia repair History of carpal tunnel surgery of left wrist History of carpal tunnel surgery of right wrist History of colonoscopy Family History Mother HTN (hypertension) Hypercholesteremia Breast cancer Father HTN (hypertension) Hypercholesteremia Melanoma Cancer Brother Colon cancer Social History Housing: Other (mobile home) Housing Other:: mobile home Are you a primary child day care teacher to a significant other at home: No Do you presently have visiting nurse or other home services: No Patient Tobacco Use Status: Never used Tobacco e-Cigarette/Vaping Use: Never Used Second Hand Smoke Exposure: No service: No Current occupational status: employed 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 ) Vision needs: No Questionnaire Thrive Questionnaire Date Thrive assessed: 06/05/24 I am a: Patient What is your living situation today?: I have a steady place to live Within the past 12 months, did the food you bought not last and you didn't have the money to get more?: Sometimes True Within the past 12 months, did you worry whether your food would run out before you got money to buy more?: Sometimes True Do you have trouble paying for medicines?: Yes Do you have trouble getting transportation to medical appointments?: No Do you have trouble paying your heating and electricity bill?: Yes Do you have trouble taking care of your child, family member or friend?: No Do you have trouble with day-to-day activities such as bathing, preparing meals, shopping, managing finances, etc.?: No Are you currently unemployed and looking for a job?: No Are you interested in more education?: No Please select the resources that you would like help with: Utilities Currently or been in a relationship where the following occur: No concerns reported THRIVE Score: 3 AUDIT C Alcohol Use Questionnaire (AUDIT-C) 2. How many drinks containing alcohol do you have on a typical day when you are drinking?: 1 or 2 3. How often do you have six or more drinks on one occasion?: Never Total Score: 0 ASHWIN-7 AMB Questionnaire ASHWIN-7 Date ASHWIN - 7 assessed: 06/08/24 Source: Developed by Drs. Melchor Bhatia, Zayda Rodarte, Brandon Montoya and colleagues, with an educational sal from [employer]. Physical exam (Primary Care) Tobacco/Smoking Status: Tobacco use Status Tobacco use date assessed 11/06/24 11/06/24 11:28 Patient Tobacco Use Status Never used Tobacco 11/06/24 09:12 e-Cigarette/Vaping Use Never Used 11/06/24 09:12 Thrive Assessment: Date of Thrive Assessment Date Thrive assessed 06/05/24 11/06/24 09:12 Currently or been in a relationship where the following occur: No concerns reported Telehealth Telehealth Telehealth Platform: Telephone Location of provider rendering services: practice address Location of patient: address on file Patient Identification confirmed using: Name, : Yes Telehealth method: voice only Patient verbally consented to treatment: Yes Patient verbally consented to billing insurance company: Yes Patient informed of any privacy concerns related to visit: Yes Minutes spent on Phone/Video with Pt.: 18 Coding Level of Care Code Tele Est Pt Level 4 (87944) Complex EM visit Add On G2211 Diagnoses Pain and swelling of right lower leg M79.661; M79.89 Post-operative state Z98.890 Assessment & Plan Assessment & Plan (1) Pain and swelling of right lower leg: Code(s): M79.661 - Pain in right lower leg; M79.89 - Other specified soft tissue disorders Category: Medical (2) Post-operative state: Code(s): Z98.890 - Other specified postprocedural states Category: Surgical Plan . Orders: Orders US venous duplex LE RT Today M79.661 - Pain in right lower leg, M79.89 - Other specified soft tissue disorders, Z98.890 - Other specified postprocedural states
== END 2024-11-06 13:24 | disposition home or self-care (01) ==
LOC: HO.HMCFM 10:30
PROVIDERS: PCP Nurse Practitioner Family; Visit Provider Nurse Practitioner Family
DX: M79.661 Pain in right lower leg (principal); M79.89 Other specified soft tissue disorders; Z98.890 Other specified postprocedural states

== ENCOUNTER → 2024-11-06 10:30 | Outpatient (BNVA) | payer OTHER, SELFPAY | PROVIDERS: PCP Nurse Practitioner Family; Visit Provider Nurse Practitioner Family | DX: Z13.89 Encounter for screening for other disorder (principal) ==

== ENCOUNTER 2024-11-06 15:21 | Outpatient (REF) | payer OTHER, SELFPAY ==
--- NOTE | ~2024-11-06 | US_ITS ---
EXAMINATION: US TRIPLEX LOWER EXTREMITY, RIGHT CLINICAL INFORMATION: Right lower leg pain COMPARISON: None available. TECHNIQUE: Color-flow triplex imaging with spectral analysis and compression Doppler were performed on the right lower extremity. FINDINGS: Respiratory variation, normal compression and augmented flow are noted throughout the right lower extremity. The visualized common femoral vein, superficial femoral vein, profunda femoral vein, popliteal vein and midcalf peroneal and posterior tibial venous segments show no evidence of deep venous thrombosis. There is no Cortes's cyst. US/US venous duplex LE RT IMPRESSION: No evidence of deep venous thrombosis involving the right lower extremity. Electronically signed by: Oc Arellano MD 11/06/2024 03:59 PM EDT
== END 2024-11-06 15:22 | disposition home or self-care (01) ==
LOC: HO.HMGCX 15:21
PROVIDERS: PCP Nurse Practitioner Family; Visit Provider Nurse Practitioner Family
DX: M79.661 Pain in right lower leg (principal); R60.0 Localized edema; Z98.890 Other specified postprocedural states
CPT/HCPCS: 93971

== ENCOUNTER → 2024-11-06 15:33 | Outpatient (BNV) | payer OTHER, SELFPAY | PROVIDERS: PCP Nurse Practitioner Family; Visit Provider Radiology Diagnostic Radiology | DX: M79.604 Pain in right leg (principal) | CPT/HCPCS: 93971 ==

== ENCOUNTER 2024-12-02 09:24 | Outpatient (REF) | payer OTHER, SELFPAY | END 2024-12-02 09:25 | disposition home or self-care (01) | LOC: HO.HOSX 09:24 | PROVIDERS: Visit Provider Orthopaedic Surgery | DX: Z13.89 Encounter for screening for other disorder (principal) ==

== ENCOUNTER 2024-12-03 09:04 | Outpatient (REF) | payer OTHER, SELFPAY | END 2024-12-03 09:05 | disposition home or self-care (01) | LOC: HO.HOSX 09:04 | PROVIDERS: Visit Provider Orthopaedic Surgery | DX: M25.561 Pain in right knee (principal); S83.241A Other tear of medial meniscus, current injury, right knee, initial encounter; M25.511 Pain in right shoulder; I10 Essential (primary) hypertension; G89.29 Other chronic pain | CPT/HCPCS: 20610; 99212; J1010; J2003 ==

== ENCOUNTER 2024-12-03 09:30 | Outpatient (AMB) | payer OTHER, SELFPAY ==
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
[2024-12-03 09:47] VITALS: BMI 29.5
== END 2024-12-03 10:09 | disposition home or self-care (01) ==
LOC: HO.HOS 09:31
PROVIDERS: PCP Nurse Practitioner Family; Visit Provider Orthopaedic Surgery
DX: M25.511 Pain in right shoulder (principal); G89.29 Other chronic pain; S83.241A Other tear of medial meniscus, current injury, right knee, initial encounter
CPT/HCPCS: 20610; 99213

== ENCOUNTER 2024-12-09 15:46 | Outpatient (RCR) | payer OTHER, SELFPAY ==
--- NOTE | 2025-01-11 09:13 | MHC.PT.DC ---
[facility] [place] Office [place] [facility] [place] Office [address] Kaity Singh [address] [phone] F: [phone] F: [phone] F: [phone] F: [phone] Physical Therapy Discharge Report Diagnosis: Right shoulder arthroscopic distal clavicle excision, right shoulder arthroscopic acromioplasty, right shoulder arthroscopic anterior capsular release, right shoulder manipulation under anesthesia (KP) Date of Surgery: 10/23/24 Date of Evaluation: 11/18/24 Date of Discharge: 01/11/25 Treatments to Date: 6 Cancellations to Date: 0 No Shows to Date: 0 Discharge Status: Improved Function Patient Elected to Stop Discharge Summary: Pt cancelled last two scheduled visits due to in family. He has not contacted our office in over 30 days therefore, we will D/C current chart and perform new evaluation if needed. At last attended visits, assessment stated Pt continues to do well with above program, without increased discomfort and performing with minimal cuing for appropriate mechanics. He does have a comprehensive home program with which he may continue independently. Electronically signed by: Linnette Gonzales PT DPT Please sign and return to therapist. Thank you for your referral.
== END 2025-01-11 09:13 | disposition home or self-care (01) ==
LOC: HO.PT 15:46
PROVIDERS: PCP Nurse Practitioner Family; Visit Provider Physician Assistant
DX: M25.811 Other specified joint disorders, right shoulder (principal)
CPT/HCPCS: 97110; 97161; 97530; 97535

== ENCOUNTER 2024-12-19 09:43 | Outpatient (REF) | payer OTHER, SELFPAY ==
--- NOTE | ~2024-12-19 | MR_ITS ---
CLINICAL HISTORY: S83.241A - Other tear of medial meniscus, current injury, right knee, in... MR right knee without gadolinium Comparison: CR/SR - XR KNEE HODA 4V - 11/05/24 14:03 EDT Findings: No acute fracture or pathologic bone lesion. There is a large joint effusion with mild lateral subluxation of the patellofemoral joint. There is focal nodular thickening of synovium at the patellofemoral joint. Anterior and posterior cruciate ligaments are intact. Collateral ligaments are intact. Patellar retinacula and iliotibial band are intact. There is tendinosis of the distal patellar tendon. There is extrusion of the medial meniscus with grade 2 signal in the posterior horn and a focal tear of the posterior root. There is a small Cortes's cyst. There is bone bruising related to the medial tibial metaphysis. A subchondral cyst is seen posteriorly. There is some edema/inflammation of the posterior aspect of the medial and lateral quadriceps musculature suggesting mild muscle strain. IMPRESSION: 1. Focal tear of the posterior root of the medial meniscus with grade 2 signal in the posterior horn as well as extrusion. 2. Bone bruising medial tibial metaphysis with subchondral cyst. 3. Large joint effusion with mild lateral subluxation of the patella. 4. Focal nodular thickening of the synovium at the patellofemoral joint. 5. Small Cortes's cyst. 6. Localized edema/inflammation posterior aspect of the medial and lateral quadriceps muscles suggesting evidence of muscle strain. 7. Tendinosis of the distal patellar tendon. This document has been electronically signed by: Mando Hamilton MD on 12/21/2024 10:49:42
== END 2024-12-19 09:44 | disposition home or self-care (01) ==
LOC: HO.MRI 09:43
PROVIDERS: PCP Nurse Practitioner Family; Visit Provider Orthopaedic Surgery
DX: S83.241A Other tear of medial meniscus, current injury, right knee, initial encounter (principal)
CPT/HCPCS: 73721

== ENCOUNTER → 2024-12-19 09:52 | Outpatient (BNV) | payer OTHER, SELFPAY | PROVIDERS: PCP Nurse Practitioner Family; Visit Provider Radiology Diagnostic Radiology | DX: S80.11XA Contusion of right lower leg, initial encounter (principal); M85.461 Solitary bone cyst, right tibia and fibula; M25.461 Effusion, right knee; M71.21 Synovial cyst of popliteal space [Baker], right knee; M76.51 Patellar tendinitis, right knee | CPT/HCPCS: 73721 ==

== ENCOUNTER 2024-12-22 08:41 | Outpatient (AMB) | payer OTHER, SELFPAY ==
[2024-12-22 08:44] VITALS: BMI 29.5
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
== END 2024-12-22 09:17 | disposition home or self-care (01) ==
LOC: HO.HOS 08:43
PROVIDERS: PCP Nurse Practitioner Family; Visit Provider Orthopaedic Surgery
DX: S83.241A Other tear of medial meniscus, current injury, right knee, initial encounter (principal)
CPT/HCPCS: 99214; G2211

== ENCOUNTER → 2024-12-22 08:41 | Outpatient (BNVA) | payer OTHER, SELFPAY | PROVIDERS: PCP Nurse Practitioner Family; Visit Provider Orthopaedic Surgery | DX: S83.241A Other tear of medial meniscus, current injury, right knee, initial encounter (principal); X58.XXXA Exposure to other specified factors, initial encounter; Y93.9 Activity, unspecified; Y92.9 Unspecified place or not applicable; Y99.9 Unspecified external cause status | CPT/HCPCS: 99212 ==

== ENCOUNTER 2025-01-05 07:55 | Outpatient (REF) | payer OTHER, SELFPAY ==
[2025-01-05 11:54] LABS: Hematocrit 46.8 % (42.0-52.0); Hemoglobin 15.7 g/dl (14.0-18.0); Mean Corpuscular HGB Conc 33.5 g/dl (31.0-36.0); Mean Corpuscular Volume 92.5 fL (80.0-98.0); Mean Platelet Volume 10.9 fL (9.4-12.4); Platelet Count 248 X10*3/uL (160-400); Red Blood Count 5.06 X10*6/uL (4.60-5.80); Red Cell Distribution Width 13.8 % (11.0-16.0)
[2025-01-05 12:13] LABS: Estimated Average Glucose 97 mg/dL
[2025-01-05 12:23] LABS: Alanine Aminotransferase 28 U/L (0-40); Albumin Level 4.4 g/dL (3.5-5.0); Alkaline Phosphatase 109 U/L (39-117); Anion Gap 13 (12-20); Aspartate Amino Transferase 33 U/L (5-37); Bilirubin Total 0.6 mg/dL (0.0-1.0); Blood Urea Nitrogen 19 mg/dL (9-16); Calcium 9.7 mg/dL (8.4-10.2); Carbon Dioxide 23 mmol/L (22-29); Chloride 107 mmol/L (96-108); Cholesterol 226 mg/dL (<200); Estimated Glomerular Filt Rate > 60; Glucose Fasting 87 mg/dL (60-99); HDL Cholesterol 55 mg/dL (>40); LDL Cholesterol Calculated 159 mg/dL (<100); Potassium 4.2 mmol/L (3.3-5.1); Sodium 139 mmol/L (135-145); TSH reflex Free T4 0.48 uIU/mL (0.32-4.0); Total Protein 7.3 g/dL (6.5-8.0); Triglycerides 64 mg/dL (<150)
[2025-01-05 12:29] LABS: Creatinine Urine 249.26 mg/dL; Microalbumin Urine < 5.0 mg/L
[2025-01-05 12:47] LABS: Folate 13.4 ng/mL (> or = 4.0); Vitamin B12 872 pg/mL (200-900)
[2025-01-08 21:03] LABS: PSA, Ultra Sensitive 0.66 ng/mL
== END 2025-01-05 07:56 | disposition home or self-care (01) ==
LOC: HO.WFDLDS 07:55
PROVIDERS: PCP Nurse Practitioner Family; Visit Provider Nurse Practitioner Family
DX: Z00.01 Encounter for general adult medical examination with abnormal findings (principal); Z01.818 Encounter for other preprocedural examination; N40.1 Benign prostatic hyperplasia with lower urinary tract symptoms; R35.1 Nocturia; N52.01 Erectile dysfunction due to arterial insufficiency; F41.1 Generalized anxiety disorder; K21.9 Gastro-esophageal reflux disease without esophagitis; E78.2 Mixed hyperlipidemia; M51.360 Other intervertebral disc degeneration, lumbar region with discogenic back pain only; F33.1 Major depressive disorder, recurrent, moderate; I73.9 Peripheral vascular disease, unspecified; L81.9 Disorder of pigmentation, unspecified; L98.9 Disorder of the skin and subcutaneous tissue, unspecified; H61.23 Impacted cerumen, bilateral; E66.9 Obesity, unspecified; Z68.30 Body mass index [BMI] 30.0-30.9, adult; S83.241S Other tear of medial meniscus, current injury, right knee, sequela; Z79.899 Other long term (current) drug therapy
CPT/HCPCS: 36415; 69209; 80053; 80061; 82043; 82570; 82607; 82746; 83036; 84153; 84443; 85027; 93005; 96127; 99212; 99396

== ENCOUNTER 2025-01-05 07:55 | Outpatient (AMB) | payer OTHER, SELFPAY ==
--- NOTE | 2025-01-05 07:59 | MHC.PC.OV ---
Vital Signs 01/05/25 08:07 Height 5 ft 8 in Weight 198 lb 4 oz BMI 30.1 BP 132/76 Blood Pressure Location Rt brachial Position Sitting Respiration 13 Pulse 66 Pulse Source Pulse Oximeter Temp 97.6 F Temp Source Oral Pulse Oximetry (%) 97 Oxygen Delivery Method Room Air Intake Visit Reasons: December CPE Intake Note: CPE and also patient nteeds refill on med Freezer Assistant Required: No Allergies codeine [Codeine] Adverse Reaction (Mild, Verified 01/05/25 08:29) NAUSEA & VOMITING oxycodone [From Percodan] Adverse Reaction (Mild, Verified 01/05/25 08:29) NAUSEA & VOMITING Medication List - Last Reconciled 01/05/25 by Renee Quiroz, INSTALLATION SPECIALIST- bisacodyl (Dulcolax (bisacodyl)) 20 mg (4 x 5 mg) PO ONCE 1 day ibuprofen 600 mg PO Q8H PRN multivitamin 1 tab PO DAILY pantoprazole 40 mg PO QAM tadalafil 20 mg PO DAILY 90 days Tobacco use date assessed: 01/05/25 Dental Screening Dental Screen Date: 01/05/25 Did you have a dental visit in the last 12 months?: Yes Did you have a dental problem in the last 6 months where you did not have access to dental care?: No Was dental information given to patient?: Patient has dentist HPI HPI Comments History of Present Illness Details 63 y/o M OA, erectile dysfunction, GERD, BPH, MDD, ASHWIN, HLD, PVD , Seborrheic keratosis, family hx colon ca (dad and brother), cervical DJD s/p excision Seborrheic keratosis, inflamed [facility] Gen surgeon 04/2024, umbilical hernia repair, CTS bilat, R shoulder surgery, eye surgery Family hx: has 4 children, 1 of methadone overdose, Dad and bro with CRC Mom HTN HLD Breast ca Health Maintenance: Colon scheduled this week at [facility] PSA 12/2023 WNL Tdap - 11/2023, Declined flu 2023 Specialists: Optho cannot afford more medical bills; aware overdue. Hx of blindness Ortho Uro GI Neuro Here today for CPe and Pre-Op appt. Here today for preoperative clearance. Surgery Type: Rt knee medial meniscus tear repair Anesthesia Type: General Surgeon: Dr Hernanedz Date: 01/08/25 Any past surgical procedures: Denies Any complications from anesthesia or in post-op period: Denies ASA or NSAID Use: Ibu a few times per day. Current smoker: Smokes marijuana Alcohol use: Rare Drug use: Marilind[place]ana METs: > 4 climb flight of stairs, golf, walk, yardwork Medical history: Asthma No COPD No Obesity BMI 30.1 Diabetes No KS < 6 weeks, unstable angina, CHF, severe valve disease No Testing EKG: done in office today, NSR Labs done today, see below, normal. RCRI is Class 0 Risk Stratification: 3.9% Education Aspirin and NSAIDS should be discontinued one week before surgery to prevent excessive bleeding. If you are a smoker, there is increase risk of post surgical complications. Cessation is encouraged. Follow up with surgeon and all recommendations pre and post operatively. Patient is medically cleared to proceed with surgery. History of Present Illness - The patient is a 64-year-old male presenting for a complete physical. He reports Gastroesophageal Reflux Disease with management through pantoprazole intake. - He has BPH with urinary symptoms, managed by daily tadalafil 5mg and 20mg specifically for erectile dysfunction PRN. Reports significant nocturia, exacerbating nightly discomfort. FFd by Uro at [facility] - Reports a cough, dry, started 2 days ago. - sporadic marijuana use. 2joints/week - Raised lesion, initially a birthmark, emerged in the last six months. - Reports chronic double growth of a fingernail post-trauma 3 years affecting L middle finger - Reports chronic foot and ankle pain - Reports depressive symptoms linked to work and financial stressors, yet denies self-harm risks. - Formerly active lifestyle curbed by recent health instability. Social History - The patient is currently unemployed, expressing financial concerns due to medical bills. - Resides in a mobile home and reports issues with phone connectivity. - Former profession involved significant travel and a previous penchant for exercise. - Reports sporadic marijuana use, about two joints weekly, especially during social activities. - Denies tobacco smoking but reports chronic cough related to marijuana use. - Reports very limited alcohol consumption. - Cites marital support; actively engages in healthcare management. Health Maintenance - Up to date on colonoscopy and tetanus vaccination. - Annual labs include A1c monitoring for hypoglycemia. - Eye exams deferred due to financial constraints. Review of Systems - Gastrointestinal: Reports GERD, taking pantoprazole. - Genitourinary: Reports nocturia, erectile dysfunction managed by urology. - Respiratory: Reports cough - Dermatological: Reports newly raised birthmark. - Musculoskeletal: Reports postoperative delayed healing, chronic ankle, and foot pain. - Psychological: Reports depression and anxiety; denies suicidal thoughts. - Immune/hematologic: Reports chronic hypoglycemia. - Allergic/Immunological: Denies diabetes, asthma, or COPD. Physical Exam General: Well developed, well nourished, in no acute distress. Appears stated age. Head: Normocephalic, atraumatic. Eyes: Pupils are equal, round and reactive to light and accommodation. Conjunctivae are clear. Scleras nonicteric bilat Ears: Cerumen impaction bilat EAC; Lavage performed. Nose: Patent, without discharge. Neck: Supple, no adenopathy or thyromegaly. No carotid bruit bilat Lungs: Clear to auscultation bilaterally. No rales, rhonchi or wheeze noted. Good air flow in all bustamante. Occassional dry cough, no distress. Heart: Regular rate and rhythm. No murmurs, click, rubs or gallops are noted. Abdomen: Bowel sounds present in all quadrants. The abdomen is soft, nontender, with no masses or organomegaly noted. No hernias are noted. : Deferred. Reviewed MARVIN & recommendations Pulses: Peripheral pulses are equal and palpable bilaterally. Extremities: No clubbing, cyanosis nor edema is noted. Hairless lower ext, skin intact; wearing brace to R knee. Neurologic: Gait and station normal. Cranial Nerves 2-12 intact. Motor strength grossly symmetrical and intact. No sensory loss. Balance normal. Skin: No rashes, ulcers, or lesions noted. Turgor is good. Skin color is good. See pic of L middle finger cuticle. Noted raised birthmark on the left chest area, see picture, L anterior chest. Psych: Normal eye contact, affect and mood appropriate, and normal interactions. Patient is alert and appropriate to context. Scored a little for depression and anxiety, but denies any thoughts of self-harm or harm to others. Discussion Notes During the appointment, I discussed the patient's GERD, advising continuation with pantoprazole. I addressed his BPH symptoms, elaborating on the current prescription of tadalafil and night-time exacerbation, possibly relating to anatomical bladder changes. For his raised birthmark and fingernail issues, I proposed referring him for surgical evaluation. Throughout our discussion, we addressed his mood concerns without indicating immediate harm risk, attributing feelings to current financial and employment troubles. I offered him guidance on managing his cough through reducing marijuana use and [id number] antihistamines. Future diagnostics include continual monitoring through annual tests and ensuring contacts are sufficiently scheduled for pending evaluations, including surgical consultations. Assessment and Plan 1. Gastroesophageal Reflux Disease (GERD) - Maintain pantoprazole 40 mg daily. 2. Benign Prostatic Hyperplasia (BPH) - Continue tadalafil, follow with urology. 3. Erectile Dysfunction - Continue tadalafil as directed & FU with URO 3. Raised birthmark - Surgical referral for excision. 5. Double fingernail growth - Monitor and discuss surgical evaluation. 6. Cough following tobacco use - Initiate antihistamines, reduce marijuana use. Ear lavage today, labs, EKG Cont all meds Hold NSAIDs prior to surgery. RTO 6 months HLD, sooner PRN Consent Patient was informed and verbally consented to the use of an ambient scribe for clinic note documentation during this visit. An additional 45 minutes was spent addressing the problem(s) noted at todays visit. This includes time spent before the visit reviewing the chart, time spent during the visit, and time spent after the visit on documentation reviewing laboratory results, diagnostic imaging, medications, performing a medically necessary evaluation, counseling on diagnoses, care coordination, ordering appropriate tests, ordering appropriate medications, review of tests performed by other providers, reporting test results with the patient, communication with other healthcare providers. [facility] Medical History (Updated 01/05/25 @ 09:06 by Renee Quiroz, GABRIEL-CLARKE) Anxiety Arthritis Back pain Bilateral carpal tunnel syndrome Degenerative disc disease, cervical Degenerative disc disease, lumbar Depression GERD (gastroesophageal reflux disease) H/O multiple concussions Habitual snoring High cholesterol Hx of gastroesophageal reflux (GERD) Murmur Myocardial infarction Nocturia Seborrheic keratosis Umbilical hernia Surgical History (Updated 01/05/25 @ 08:03 by Renee Quiroz, GABRIEL-CLARKE) H/O eye surgery H/O wisdom tooth extraction History of carpal tunnel surgery of left wrist History of carpal tunnel surgery of right wrist History of colonoscopy (~2014) Hx of umbilical hernia repair Family History Mother HTN (hypertension) Hypercholesteremia Breast cancer Father HTN (hypertension) Hypercholesteremia Melanoma Cancer Brother Colon cancer Social History Housing: Other (mobile home) Housing Other:: mobile home Are you a primary nurse behavioral health care to a significant other at home: No Do you presently have visiting nurse or other home services: No Patient Tobacco Use Status: Never used Tobacco e-Cigarette/Vaping Use: Never Used Second Hand Smoke Exposure: No service: No Current occupational status: employed 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 ) Vision needs: No Questionnaire PHQ-9 Over the last 2 weeks, how often have you been bothered by any of the following problems? 1. Little interest or pleasure in doing things: not at all 2. Feeling down, depressed, or hopeless: several days 3. Trouble falling or staying asleep, or sleeping too much: nearly every day 4. Feeling tired or having little energy: more than half the days 5. Poor appetite or overeating: not at all 6. Feeling bad about yourself - or that you are a failure or have let yourself or your family down: not at all 7. Trouble concentrating on things, such as reading the newspaper or watching television: not at all 8. Moving or speaking so slowly that other people could have noticed. Or the opposite - being so fidgety or restless that you have been moving around a lot more than usual: not at all 9. Thoughts that you would be better off or of hurting yourself in some way: not at all Total score: 6 Depression Screening Interpretation: Positive Depression Screening Follow-up: Existing condition and Declines treatment Depression Screening Done: Yes 12888 - PHQ-9 Billing: Yes Source: Developed by Drs. Melchor Bhatia, Zayda Rodarte, Brandon Montoya and colleagues, with an educational sal from [employer]. Thrive Questionnaire Date Thrive assessed: 01/05/25 I am a: Patient What is your living situation today?: I have a steady place to live Within the past 12 months, did the food you bought not last and you didn't have the money to get more?: Never true Within the past 12 months, did you worry whether your food would run out before you got money to buy more?: Sometimes True Do you have trouble paying for medicines?: No Do you have trouble getting transportation to medical appointments?: No Do you have trouble paying your heating and electricity bill?: Yes Do you have trouble taking care of your child, family member or friend?: No Do you have trouble with day-to-day activities such as bathing, preparing meals, shopping, managing finances, etc.?: No Are you currently unemployed and looking for a job?: I choose not to answer this question Are you interested in more education?: No Please select the resources that you would like help with: None Currently or been in a relationship where the following occur: I choose not to answer THRIVE Score: 2 AUDIT C Alcohol Use Questionnaire (AUDIT-C) 1. How often do you have a drink containing alcohol?: 2-4 times a month 2. How many drinks containing alcohol do you have on a typical day when you are drinking?: 1 or 2 3. How often do you have six or more drinks on one occasion?: Never Total Score: 2 Score Reviewed/Action Taken: Yes ASHWIN-7 AMB Questionnaire ASHWIN-7 Date ASHWIN - 7 assessed: 01/05/25 Feeling nervous, anxious, or on edge: 1 = Several days Not being able to stop or control worryin = Several days Worrying too much about different things: 2 = More than half the days Trouble relaxin = More than half the days Being so restless that it is hard to sit still: 2 = More than half the days Becoming easily annoyed or irritable: 1 = Several days Feeling afraid as if something awful might happen: 0 = Not at all Total ASHWIN-7 score (0-4 normal; 5-9 mild; 10-14 moderate; 15-21 severe): 9 Source: Developed by Drs. Melchor Bhatia, Zayda Rodarte, Brandon Montoya and colleagues, with an educational sal from [employer]. ASHWIN-7 Assessment Billing ASHWIN-7 Assessment Tool: ASHWIN-7 Assessment 59076 Physical exam (Primary Care) Vital Signs: Last Vital Signs Temp 97.6 F 01/05/25 08:07 Pulse 66 01/05/25 08:07 Resp 13 01/05/25 08:07 BP 132/76 01/05/25 08:07 Pulse Ox 97 01/05/25 08:07 Oxygen Delivery Method Room Air 01/05/25 08:07 BMI result Body Mass Index 30.1 BMI Assessment/Plan discussion: High BMI High, discussed plan: lifestyle Tobacco/Smoking Status: Tobacco use Status Tobacco use date assessed 01/05/25 01/05/25 08:09 Patient Tobacco Use Status Never used Tobacco 01/05/25 08:04 e-Cigarette/Vaping Use Never Used 01/05/25 08:04 PHQ-9: PHQ-9 Score PHQ-9: Total score 6 01/05/25 08:09 Depression Screening Interpretation: Positive Depression Screening Follow-up: Existing condition and Declines treatment Thrive Assessment: Date of Thrive Assessment Date Thrive assessed 01/05/25 01/05/25 08:04 Currently or been in a relationship where the following occur: I choose not to answer Office Procedures Cerumen Removal From which ear canal was the cerumen removed: bilateral Removal: irrigation Notes: patient tolerated procedure well, no complications and ear canal clear 18720-Oee Irrigation/Lavage EKG 05134-[id number], Complete Results Reviewed Results Reviewed: Laboratory Result Units Range Interpretation Provider Comments White Blood Count 5.0 X10*3/uL (4.8-10.8) Red Blood Count 5.06 X10*6/uL (4.60-5.80) Hemoglobin 15.7 g/dl (14.0-18.0) Hematocrit 46.8 % (42.0-52.0) Mean Corpuscular Volume 92.5 fL (80.0-98.0) Mean Corpuscular Hemoglobin 31.0 pg (27.0-33.0) Mean Corpuscular Hemoglobin Concent 33.5 g/dl (31.0-36.0) Red Cell Distribution Width 13.8 % (11.0-16.0) Platelet Count 248 X10*3/uL (160-400) Mean Platelet Volume 10.9 fL (9.4-12.4) Nucleated RBC Absolute Count (auto) 0.000 X10*3/uL (0.0-0.012) Nucleated Red Blood Cells % (auto) 0.0 /100WBC (0.0-0.2) Sodium Level 139 mmol/L (135-145) Potassium Level 4.2 mmol/L (3.3-5.1) Chloride Level 107 mmol/L (96-108) Carbon Dioxide Level 23 mmol/L (22-29) Anion Gap 13 (12-20) Blood Urea Nitrogen 19 mg/dL (9-16) High Creatinine 1.03 mg/dL (0.5-1.4) Estimated Creatinine Clearance Calc Not Reportable Estimat Glomerular Filtration Rate > 60 Fasting Glucose 87 mg/dL (60-99) Estimated Average Glucose 97 mg/dL Hemoglobin A1c Percent 5.0 % (<6.0) Calcium Level 9.7 mg/dL (8.4-10.2) Total Bilirubin 0.6 mg/dL (0.0-1.0) Aspartate Amino Transf (AST/SGOT) 33 U/L (5-37) Alanine Aminotransferase (ALT/SGPT) 28 U/L (0-40) Alkaline Phosphatase 109 U/L (39-117) Total Protein 7.3 g/dL (6.5-8.0) Albumin 4.4 g/dL (3.5-5.0) Triglycerides Level 64 mg/dL (<150) Cholesterol Level 226 mg/dL (<200) High LDL Cholesterol, Calculated 159 mg/dL (<100) High HDL Cholesterol 55 mg/dL (>40) Thyroid Stimulating Hormone (TSH) 0.48 uIU/mL (0.32-4.0) Urine Creatinine 249.26 mg/dL Urine Microalbumin < 5.0 mg/L Urine Microalbumin/Creatinine Ratio TNP Coding Level of Care Code Est Pt Level 5 (31401) Est Pt Prev Care 40-64y(62328) Diagnoses Encounter for general adult medical examination with abnormal findings Z00.01 BPH associated with nocturia N40.1; R35.1 Erectile dysfunction due to arterial insufficiency N52.01 Erectile dysfunction type: vasculogenic Vasculogenic erectile dysfunction type: due to arterial insufficiency ASHWIN (generalized anxiety disorder) F41.1 Gastroesophageal reflux disease without esophagitis K21.9 Esophagitis presence: without esophagitis Mixed hyperlipidemia E78.2 Hyperlipidemia type: mixed hyperlipidemia Degeneration of intervertebral disc of lumbar region with discogenic back pain M51.360 Disc-related pain type: discogenic back pain only Moderate episode of recurrent major depressive disorder F33.1 Major depression episode severity: moderate PVD (peripheral vascular disease) I73.9 Atypical pigmented skin lesion L81.9 Finger lesion L98.9 Impacted cerumen, bilateral H61.23 Obesity (BMI 30-39.9) E66.9 Other tear of medial meniscus of right knee as current injury, sequela S83.241S Encounter type: sequela Meniscus tear of knee type: other type Tear current or old: current Pre-op evaluation Z01.818 CPT Codes Office Procedure - CPT: 36209-Zzs Irrigation/Lavage ([id number]) EKG - CPT: 71917-[id number], Complete ([id number]) Additional Codes ASHWIN-7 Assessment Billing - ASHWIN-7 Assessment Tool: ASHWIN-7 Assessment 92560 ([id number]) PHQ-9 - 27851 - PHQ-9 Billing: Yes ([id number]) Assessment & Plan Assessment & Plan (1) Encounter for general adult medical examination with abnormal findings: Onset Date: ~01/05/25 Code(s): Z00.01 - Encounter for general adult medical examination with abnormal findings Category: Medical (2) BPH associated with nocturia: Code(s): N40.1 - Benign prostatic hyperplasia with lower urinary tract symptoms; R35.1 - Nocturia Category: Medical (3) Erectile dysfunction: Code(s): N52.9 - Male erectile dysfunction, unspecified Category: Medical Qualifiers: Erectile dysfunction type: vasculogenic Vasculogenic erectile dysfunction type: due to arterial insufficiency Qualified Code(s): N52.01 - Erectile dysfunction due to arterial insufficiency (4) ASHWIN (generalized anxiety disorder): Comment: declined counseling and meds Code(s): F41.1 - Generalized anxiety disorder Category: Medical (5) GERD (gastroesophageal reflux disease): Code(s): K21.9 - Gastro-esophageal reflux disease without esophagitis Category: Medical Qualifiers: Esophagitis presence: without esophagitis Qualified Code(s): K21.9 - Gastro-esophageal reflux disease without esophagitis (6) Hyperlipidemia: Comment: LDL goal < 70 Code(s): E78.5 - Hyperlipidemia, unspecified Category: Medical Qualifiers: Hyperlipidemia type: mixed hyperlipidemia Qualified Code(s): E78.2 - Mixed hyperlipidemia (7) Lumbar degenerative disc disease: Code(s): M51.369 - Other intervertebral disc degeneration, lumbar region without mention of lumbar back pain or lower extremity pain Category: Medical Qualifiers: Disc-related pain type: discogenic back pain only Qualified Code(s): M51.360 - Other intervertebral disc degeneration, lumbar region with discogenic back pain only (8) MDD (major depressive disorder), recurrent episode: Comment: declined counseling and meds Code(s): F33.9 - Major depressive disorder, recurrent, unspecified Category: Medical Qualifiers: Major depression episode severity: moderate Qualified Code(s): F33.1 - Major depressive disorder, recurrent, moderate (9) PVD (peripheral vascular disease): Comment: based on physical exam, hairless BLE + varicose veins maintain BP control, declined statin and zetia, monitor skin integrity Code(s): I73.9 - Peripheral vascular disease, unspecified Category: Medical (10) Atypical pigmented skin lesion: Comment: L anterior chest Code(s): L81.9 - Disorder of pigmentation, unspecified Category: Medical (11) Finger lesion: Comment: L middle finger Code(s): L98.9 - Disorder of the skin and subcutaneous tissue, unspecified Category: Medical (12) Impacted cerumen, bilateral: Code(s): H61.23 - Impacted cerumen, bilateral (13) Obesity (BMI 30-39.9): Code(s): E66.9 - Obesity, unspecified Category: Medical (14) Tear of medial meniscus of right knee: Code(s): S83.241A - Other tear of medial meniscus, current injury, right knee, initial encounter Category: Medical Qualifiers: Encounter type: sequela Meniscus tear of knee type: other type Tear current or old: current Qualified Code(s): S83.241S - Other tear of medial meniscus, current injury, right knee, sequela (15) Pre-op evaluation: Code(s): Z01.818 - Encounter for other preprocedural examination Plan: PT IS MEDICALLY CLEARED TO PROCEED W/ SURGERY. Plan . Orders: Orders Complete Blood Count no Diff Today Z01.818 - Encounter for other preprocedural examination Referrals General Surgery Referral L81.9 - Disorder of pigmentation, unspecified, L98.9 - Disorder of the skin and subcutaneous tissue, unspecified Medications: New tadalafil 5 mg PO DAILY 90 tabs 0RF Refilled ibuprofen 600 mg PO Q8H PRN 30 tabs 2RF pain Patient Instructions: Health screenings for men You should visit your health care provider regularly, even if you feel healthy. The purpose of these visits is to: Screen for medical issues Assess your risk for future medical problems Encourage a healthy lifestyle Update vaccinations and other preventive care services Help you get to know your provider in case of an illness Information Even if you feel fine, you should still see your provider for regular checkups. These visits can help you avoid problems in the future. For example, the only way to find out if you have high blood pressure is to have it checked regularly. High blood sugar and high cholesterol level also may not have any symptoms in the early stages. Simple blood tests can check for these conditions. There are specific times when you should see your provider or receive specific health screenings. The [place] Preventive Services Task Force publishes a list of recommended screenings. Below are screening guidelines for men ages 40 to 64. BLOOD PRESSURE SCREENING Have your blood pressure checked at least once every year. Watch for blood pressure screenings in your area. Ask your provider if you can stop in to have your blood pressure checked. Ask your provider if you need your blood pressure checked more often if: You have diabetes, heart disease, kidney problems, or are overweight or have certain other health conditions You have a first-degree relative with high blood pressure You are Black Your blood pressure top number is from 120 to 129 mm Hg, or the bottom number is from 70 to 79 mm Hg If the top number is 130 mm Hg or greater or the bottom number is 80 mm Hg or greater, this is considered stage 1 hypertension. Schedule an appointment with your provider to learn how you can lower your blood pressure. Effects of age on blood pressure CHOLESTEROL SCREENING Cholesterol screening should begin at age 35 for men with no known risk factors for coronary heart disease. Repeat cholesterol screening should take place: Every 5 years for men with normal cholesterol levels More often if changes occur in lifestyle (including weight gain and diet) More often if you have diabetes, heart disease, kidney problems, or certain other conditions COLORECTAL CANCER SCREENING If you are under age 45, talk to your provider about getting screened. You may need to be screened if you have a strong family history of colon cancer or polyps. Screening may also be considered if you have risk factors such as a history of inflammatory bowel disease or polyps. If you are age 45 to 75, you should be screened for colorectal cancer. There are several screening tests available: A stool-based fecal occult blood (gFOBT) or fecal immunochemical test (FIT) every year A stool sDNA test every 1 to 3 years Flexible sigmoidoscopy every 5 years or every 10 years with stool testing FIT done every year CT colonography (virtual colonoscopy) every 5 years Colonoscopy every 10 years You may need a colonoscopy more often if you have risk factors for colorectal cancer, such as: Ulcerative colitis A personal or family history of colorectal cancer A history of growths in your colon called adenomatous polyps DENTAL EXAM Go to the dentist once or twice every year for an exam and cleaning. Your dentist will evaluate if you have a need for more frequent visits. DIABETES SCREENING All adults who do not have risk factors for diabetes should be screened starting at age 35 and repeated every 3 years. If you have other risk factors for diabetes, such as a first degree relative with diabetes, overweight or obesity, high blood pressure, prediabetes, or a history of heart disease, you may be tested more often. If you are overweight and have other risk factors, such as high blood pressure and are planning to become , screening is recommended. EYE EXAM Have an eye exam every 2 to 4 years ages 40 to 54 and every 1 to 3 years ages 55 to 64. Your provider may recommend more frequent eye exams if you have vision problems or glaucoma risk. Have an eye exam that includes an examination of your retina (back of your eye) at least every year if you have diabetes. IMMUNIZATIONS Commonly needed vaccines include: Flu shot: get one every year COVID-19 vaccine: ask your provider what is best for you Tetanus-diphtheria and acellular pertussis (Tdap) vaccine: have as one of your tetanus-diphtheria vaccines if you did not receive it as an adolescent Tetanus-diphtheria: have a booster (or Tdap) every 10 years Varicella vaccine: receive 2 doses if you never had chickenpox or the varicella vaccine and were born in 1980 or after Hepatitis B vaccine: receive 2, 3, or 4 doses, depending on your exact circumstances, if you did not receive these as a child or adolescent, until age 59 Shingles (herpes zoster) vaccine: at or after age 50 Ask your provider if you should receive other immunizations, especially if you have certain medical conditions, such as diabetes or are at increased risk for some diseases such as pneumonia. INFECTIOUS DISEASE SCREENING Screening for hepatitis C: all adults ages 18 to 79 should get a one-time test for hepatitis C. Screening for human immunodeficiency virus (HIV): all people ages 15 to 65 should get a one-time test for HIV. Depending on your lifestyle and medical history, you may need to be screened for infections such as syphilis, chlamydia, and other infections. LUNG CANCER SCREENING You should have an annual screening for lung cancer with low-dose computed tomography (LDCT) if: You are age 50 to 80 years AND You have a 20 pack-year smoking history AND You currently smoke or have quit within the past 15 years OSTEOPOROSIS SCREENING If you are age 50 to 64 and have risk factors for osteoporosis, you should discuss screening with your provider. Risk factors can include long-term steroid use, low body weight, smoking, heavy alcohol use, having a fracture after age 50, or a family history of hip fracture or osteoporosis. Osteoporosis PHYSICAL EXAM All adults should visit their provider from time to time, even if they are healthy. The purpose of these visits is to: Screen for diseases Assess risk of future medical problems Encourage a healthy lifestyle Update vaccinations and other preventive care services Maintain a relationship with a provider in case of an illness Your height, weight, and body mass index (BMI) should be checked at every exam. During your exam, your provider may ask you about: Depression and anxiety Diet and exercise Alcohol and tobacco use Safety, such as use of seat belts and smoke detectors Your medicines and risk for interactions PROSTATE CANCER SCREENING If you're 55 through 69 years old, before having the test, talk to your provider about the pros and cons of having a PSA test. Ask about: Whether screening decreases your chance of dying from prostate cancer. Whether there is any harm from prostate cancer screening, such as side effects from testing or overtreatment of cancer when discovered. Whether you have a higher risk of prostate cancer than others. If you are age 55 or younger, screening is not generally recommended. You should talk with your provider about if you have a higher risk for prostate cancer. Risk factors include: Having a family history of prostate cancer (especially a brother or father) Being If you choose to be tested, the PSA blood test is repeated over time (yearly or less often), though the best frequency is not known. Prostate examinations are no longer routinely done on men with no symptoms. Prostate cancer SKIN EXAM Your provider may check your skin for signs of skin cancer, especially if you're at high risk. People at high risk include those who have had skin cancer before, have close relatives with skin cancer, or have a weakened immune system. TESTICULAR EXAM The [place] Preventive Services Task Force (USPSTF) now recommends against performing testicular self-exams. Doing testicular self-exams has been shown to have little to no benefit.
[2025-01-05 08:07] VITALS: BP 132/76; PULSE 66; RESP 13; TEMP 36.4; O2SAT 97; BMI 30.1
== END 2025-01-05 09:01 | disposition home or self-care (01) ==
LOC: HO.HMCFM 07:55
PROVIDERS: PCP Nurse Practitioner Family; Visit Provider Nurse Practitioner Family
DX: Z00.01 Encounter for general adult medical examination with abnormal findings (principal); N40.1 Benign prostatic hyperplasia with lower urinary tract symptoms; R35.1 Nocturia; F33.1 Major depressive disorder, recurrent, moderate; N52.01 Erectile dysfunction due to arterial insufficiency; F41.1 Generalized anxiety disorder; K21.9 Gastro-esophageal reflux disease without esophagitis; E78.2 Mixed hyperlipidemia; M51.360 Other intervertebral disc degeneration, lumbar region with discogenic back pain only; I73.9 Peripheral vascular disease, unspecified; L81.9 Disorder of pigmentation, unspecified; H61.23 Impacted cerumen, bilateral

== ENCOUNTER → 2025-01-07 09:01 | Day surgery (SDC) | payer OTHER, SELFPAY ==
--- NOTE | 2025-01-06 10:35 | P.CONAN_ITS ---
Documented by User: Sangeetha Guardado NP 01/06/25 10:39 HPI - Anesthesia Eval Consult details Narrative: 64yo M for Upper Endoscopy and Colonoscopy Pt also scheduled for Knee Scope 01/08/25 - will need to be consented for both prior to endo's s/p Right Shoulder Arthroscopy, distal clavicle excision, acromioplasty, capsular release, manipulation, 10/23/24, GA-ETT 7 (no anesthetic issues) ?[place] 20 years ago - was admitted through ER but d/t insurance issue, left ama and no follow up. No issues since [facility] Active Problems Active Problems: All Active Problems Obesity (BMI 30-39.9) (Acute) Finger lesion (Acute) Atypical pigmented skin lesion (Acute) Tear of medial meniscus of right knee (Acute) Stiffness of right hand joint (Acute) Cervical disc disorder (Acute) Lumbar degenerative disc disease (Acute) Cervical stenosis of spinal canal (Acute) Impingement of right shoulder (Acute) Neck pain, bilateral (Acute) Screen for colon cancer (Acute) PVD (peripheral vascular disease) (Acute) Erectile dysfunction (Acute) Hyperlipidemia (Acute) BPH associated with nocturia (Acute) ASHWIN (generalized anxiety disorder) (Acute) MDD (major depressive disorder), recurrent episode (Acute) Encounter for general adult medical examination with abnormal findings (Acute ~01/05/25) Insomnia (Acute) GERD (gastroesophageal reflux disease) (Acute) Right shoulder tendinitis (Acute) Past Medical History Medical History (Updated 01/05/25 @ 09:06 by GABRIEL Feldman-CLARKE) Seborrheic keratosis Bilateral carpal tunnel syndrome Degenerative disc disease, lumbar Degenerative disc disease, cervical Back pain Umbilical hernia GERD (gastroesophageal reflux disease) Nocturia H/O multiple concussions Habitual snoring Murmur Myocardial infarction Depression Anxiety Hx of gastroesophageal reflux (GERD) Arthritis High cholesterol Family History Family History Mother HTN (hypertension) Hypercholesteremia Breast cancer Father HTN (hypertension) Hypercholesteremia Melanoma Cancer Brother Colon cancer Family history of problems with anesthesia: No Surgical History Surgical History (Updated 01/05/25 @ 08:03 by GABRIEL Feldman-CLARKE) H/O eye surgery H/O wisdom tooth extraction Hx of umbilical hernia repair History of carpal tunnel surgery of left wrist History of carpal tunnel surgery of right wrist History of colonoscopy (~2014) History of Problems with Anesthesia: No Social History Social History Housing: Other (mobile home) Housing Other:: mobile home Are you a primary medical care manager to a significant other at home: No Do you presently have visiting nurse or other home services: No Patient Tobacco Use Status: Never used Tobacco e-Cigarette/Vaping Use: Never Used Second Hand Smoke Exposure: No Use of substances other than those prescribed or required for medical reasons: Yes Substance Use Frequency: Weekly Have you been hit, kicked, punched, or otherwise hurt by someone within the past year? If so, by whom?: No Are you DNR?: No Advance Directives: No Advance Directives Information Provided: Yes Advance Directives on File: No Poor oral hygiene: No service: No Current occupational status: employed Current occupation: [employer] Current occupational exposures/hazards: No Cognitive needs: No Hearing needs: Yes (can see close. ) Vision needs: No Meds Allergies Allergy/AdvReac Type Severity Reaction Status Date / Time codeine (Codeine) AdvReac Mild NAUSEA & Verified 01/05/25 08:29 VOMITING oxycodone (From Percodan) AdvReac Mild NAUSEA & Verified 01/05/25 08:29 VOMITING Home Medications ?Medication ?Instructions ?Recorded ?Confirmed ?Last Taken ?Type multivitamin 1 tab PO DAILY 10/02/2412/20 Unknown History Exam Pertinent Lab Results Pertinent Lab Results: Laboratory Tests 01/05/25 09:20 WBC 5.0 Hgb 15.7 Hct 46.8 Plt Count 248 Sodium 139 Potassium 4.2 Chloride 107 Carbon Dioxide 23 BUN 19 H Creatinine 1.03 Narrative Narrative: EKG 09/2024 Vent. Rate : 66 BPM Atrial Rate : 66 BPM P-R Int : 136 ms QRS Dur : 84 ms QT Int : 400 ms P-R-T Axes : 47 63 61 degrees QTcB Int : 419 ms Normal sinus rhythm with sinus arrhythmia Normal ECG When compared with ECG of 14-Dec-2004 06:37, No significant change was found Assessment and Plan Assessment Anesthesia Assessment: Chart Reviewed Final Anesthetic Review Family History of Problems with Anesthesia: No History of Problems with Anesthesia: No Documented by User: Bong Pugh MD 01/07/25 11:02 [facility] Past Medical History Medical History (Updated 01/05/25 @ 09:06 by Renee Quiroz [facility]) Seborrheic keratosis Bilateral carpal tunnel syndrome Degenerative disc disease, lumbar Degenerative disc disease, cervical Back pain Umbilical hernia GERD (gastroesophageal reflux disease) Nocturia H/O multiple concussions Habitual snoring Murmur Myocardial infarction Depression Anxiety Hx of gastroesophageal reflux (GERD) Arthritis High cholesterol Family History Family History Mother HTN (hypertension) Hypercholesteremia Breast cancer Father HTN (hypertension) Hypercholesteremia Melanoma Cancer Brother Colon cancer Surgical History Surgical History (Updated 01/05/25 @ 08:03 by ALON Feldman) H/O eye surgery H/O wisdom tooth extraction Hx of umbilical hernia repair History of carpal tunnel surgery of left wrist History of carpal tunnel surgery of right wrist History of colonoscopy (~2014) Social History Social History Housing: Other (mobile home) Housing Other:: mobile home Are you a primary medical care manager to a significant other at home: No Do you presently have visiting nurse or other home services: No Patient Tobacco Use Status: Never used Tobacco e-Cigarette/Vaping Use: Never Used Second Hand Smoke Exposure: No Use of substances other than those prescribed or required for medical reasons: Yes Substance Use Frequency: Weekly Have you been hit, kicked, punched, or otherwise hurt by someone within the past year? If so, by whom?: No Are you DNR?: No Advance Directives: No Advance Directives Information Provided: Yes Advance Directives on File: No Poor oral hygiene: No service: No Current occupational status: employed Current occupation: [employer]IC Current occupational exposures/hazards: No Cognitive needs: No Hearing needs: Yes (can see close. ) Vision needs: No Meds Allergies Allergy/AdvReac Type Severity Reaction Status Date / Time codeine (Codeine) AdvReac Mild NAUSEA & Verified 01/05/25 08:29 VOMITING oxycodone (From Percodan) AdvReac Mild NAUSEA & Verified 01/05/25 08:29 VOMITING Home Medications ?Medication ?Instructions ?Recorded ?Confirmed ?Last Taken ?Type multivitamin 1 tab PO DAILY 10/02/2412/20 Unknown History Exam Airway Mallampati Class: III TM Dist: >3cm Neck ROM: Full Assessment and Plan Assessment Anesthesia Assessment: Anesthesia Plan Discussed Final Anesthetic Review NPO: Yes ASA Class: III Final Preanesthetic Review: No Changes in Pt Med Stat, Meds/Allgs Chart Review ed, Consent Obtained/Reviewed and Anes Risks/Benef Reviewed Patient Risk: Intermediate Procedure Risk: Low Anesthetic Plan Anesthetic Plan: TIVA Disposition: Standard PACU
[2025-01-07 09:18] VITALS: BMI 29.5
--- NOTE | 2025-01-07 09:20 | PC.NURSE ---
Addendum entered by Magdaleno Giles RN 01/07/25 09:52: Dr. Pugh and Dr. Wills at bedside to evaluate patient. albuterol Neb updraft treatment ordered per Dr. Pugh. patient to proceed with Colonoscopy only today. Dr. Burch notified as patient is scheduled for Knee arthroplasty tomorrow with Dr. Hernandez. Original Note: patient has non productive dry cough starting yesterday with associated lower back pain. Patient went to PCP yesterday regarding cough. Lungs clear. Dr. Pugh anesthesiologist notified,
[2025-01-07 09:22] VITALS: BP 116/75; PULSE 80; RESP 18; TEMP 36.9; O2SAT 97
[2025-01-07] MEDS: Lactated Ringers 1,000 ML 100 ML IVCONT (09:36)
[2025-01-07] MEDS: Albuterol Sulfate (0.083%) 2.5 MG/3 ML VIAL.NEB INHALE (09:50)
--- NOTE | 2025-01-07 10:35 | P.HPSUR_ITS ---
Pre-Procedural Eval Section A - 24 Hr Update-Section A only Date of Service: 01/07/25 Section B - Complete if H&P > 30 days Chief Complaint: colo screening Relevant Family History (Specify if Yes): Yes Relevant Social History: None Present Medications: see Short Stay Collaborative assessment Medical History: Significant History (Seborrheic keratosis Bilateral carpal tunnel syndrome Degenerative disc disease, lumbar Degenerative disc disease, cervical Back pain Umbilical hernia GERD (gastroesophageal reflux disease) Nocturia H/O multiple concussions Habitual snoring Murmur Myocardial infarction Depression Anxiety Hx of gastr) History of Previous Operations: Relevant previous surgery/procedure and date(s) (H/O eye surgery H/O wisdom tooth extraction Hx of umbilical hernia repair History of carpal tunnel surgery of left wrist History of carpal tunnel surgery of right wrist History of colonoscopy (~2014)) Allergies: Allergies Allergy/AdvReac Type Severity Reaction Status Date / Time codeine (Codeine) AdvReac Mild NAUSEA & Verified 01/05/25 08:29 VOMITING oxycodone (From Percodan) AdvReac Mild NAUSEA & Verified 01/05/25 08:29 VOMITING Review of Systems Sugical H&P ROS: Negative: Constitution, Cardiovascular, Respiratory, Neurologi macario, Psychiatric, Hem-Onc, Allergic/Immunologic, Gastrointestinal, Genitourinary, Musculoskeletal, Integumentary, Endocrine and Eyes/Ears/Nose/Throat Exam Surgical H&P Exam: Normal: HEENT, Normal: Heart, Normal: Lungs, Normal: Extremities, Normal: Abdomen, Normal: Skin and Normal: Neurological Plan Diagnosis/Plan: Unchanged I have reviewed the history and physical and performed a pertinent physical examination on my patient. No changes have occurred unless specified. was due for egd but postponed today as he has bad cough -colo only Time Spent With Patient Time: Total time managing care of this patient today ____ minutes.
--- NOTE | 2025-01-07 11:07 | HO.OPN-COLON ---
Colonoscopy Operative Note Operative Note Date of Service: 01/07/25 Narrative: Operative Information Procedure Description: Colonoscopy Indication: screening Anesthesia: MAC COLONOSCOPY Instrument: Olympus variable stiffness pediatric scope 190L Colonoscopy Monitoring: Vital signs and clinical assessment, continuous EKG monitoring, Pulse oximetry, Carbon Dioxide monitoring and blood pressure monitoring were done throughout the procedure. Colon withdrawal time was 15 minutes. Procedure: The patient was placed in the left lateral decubitis position and pre-procedure medications were administered. After a digital rectal examination of the ano-rectum, the video colonoscope was inserted into the rectum and advanced through the colon to the cecum/TI. The colonoscope was slowly withdrawn in a retrograde panoramic fashion and the colon mucosa was carefully examined including a retroflexed view of the rectum. Findings and interventions are described below. Procedure Difficulty: moderate, pressure applied Findings: Terminal Ileum- mild ileitis, bx taken Cecum: patchy erythema, bx taken Ascending Colon: normal Transverse Colon -normal Descending Colon: 5-7 mm sessile polyp removed with cold snare Sigmoid Colon: mdoerate diverticulosis, 6-8 mm sessile polyp removed with cold snare Rectum: Retroflexion with small internal hemorrhoids seen, grade I, 4-5 mm sessile polyp removed with cold snare Anorectum - normal Intervention: cold snare, cold forceps Colon preparation: [place] Bowel Preparation Scale Right colon; 1-2 Transverse colon: 2 Left colon; 1-2 (0 = Unprepared colon segment with mucosa not seen due to solid stool that cannot be cleared. 1 = Portion of mucosa of the colon segment seen, but other areas of the colon segment not well seen due to staining, residual stool and/or opaque liquid. 2 = Minor amount of residual staining, small fragments of stool and/or opaque liquid, but mucosa of colon segment seen well. 3 = Entire mucosa of colon segment seen well with no residual staining, small fragments of stool or opaque liquid) Impression and Post Procedure Diagnosis: diverticulosis colon polyps x 3 internal hemorrhoids Plan: High fiber diet leaflet Avoid straining at stool, epsom salts and sitz bath, anusol supps or cream Repeat Colonoscopy in 1 year due to areas of fair prep and polyps or earlier if clinically indicated r/s EGD Above findings were reviewed with the patient and relevant handouts were provided if indicated.
[2025-01-07 11:13] VITALS: BP 94/58; PULSE 84; RESP 18; TEMP 36.8; O2SAT 93
[2025-01-07 11:28] VITALS: BP 109/45; PULSE 91; RESP 18; TEMP 36.8; O2SAT 95
== END | disposition home or self-care (01) ==
PROVIDERS: PCP Nurse Practitioner Family; Visit Provider Internal Medicine Gastroenterology
PROC: (CPT 45385; principal; 2025-01-07 12:10)
DX: Z12.11 Encounter for screening for malignant neoplasm of colon (principal); D12.4 Benign neoplasm of descending colon; D12.5 Benign neoplasm of sigmoid colon; K52.9 Noninfective gastroenteritis and colitis, unspecified; K57.30 Diverticulosis of large intestine without perforation or abscess without bleeding; K64.0 First degree hemorrhoids; Z80.0 Family history of malignant neoplasm of digestive organs; K21.9 Gastro-esophageal reflux disease without esophagitis; E78.00 Pure hypercholesterolemia, unspecified; I25.2 Old myocardial infarction; Z79.899 Other long term (current) drug therapy
CPT/HCPCS: 45385; 45380; 88305; 99212; J2003; J2704

== ENCOUNTER → 2025-01-07 09:01 | Outpatient (BNV) | payer OTHER, SELFPAY | PROVIDERS: PCP Nurse Practitioner Family; Visit Provider Internal Medicine Gastroenterology | DX: Z12.11 Encounter for screening for malignant neoplasm of colon (principal); K52.9 Noninfective gastroenteritis and colitis, unspecified; K57.30 Diverticulosis of large intestine without perforation or abscess without bleeding; K64.0 First degree hemorrhoids; D12.4 Benign neoplasm of descending colon; D12.5 Benign neoplasm of sigmoid colon; D12.8 Benign neoplasm of rectum | CPT/HCPCS: 45380; 45385 ==

== ENCOUNTER 2025-01-07 13:26 | Outpatient (AMB) | payer OTHER, SELFPAY ==
[2025-01-07 13:30] VITALS: BP 100/70; PULSE 88; TEMP 36.9; O2SAT 95; BMI 29.2
--- NOTE | 2025-01-07 13:30 | MHC.OFFWIV ---
Intake Vital Signs 01/07/25 13:30 Height 5 ft 8 in Weight 192 lb BMI 29.2 BP 100/70 Blood Pressure Location Lt brachial Position Sitting Pulse 88 Pulse Source Pulse Oximeter Temp 98.5 F Pulse Oximetry (%) 95 Oxygen Delivery Method Room Air Intake Visit Reasons: EP-cough & lower back pain Patient Tobacco Use Status: Never used Tobacco Health Services Rn Required: No Allergies codeine (Codeine) Adverse Reaction (Mild, Verified 01/07/25 13:33) NAUSEA & VOMITING oxycodone (From Percodan) Adverse Reaction (Mild, Verified 01/07/25 13:33) NAUSEA & VOMITING Do you need a note to return to daycare/school/sports/work: No HPI HPI Comments History of Present Illness Details History - The patient is a 64-year-old male presenting with cough and lower back pain. - The cough began three days ago and is dry in nature. - Severe coughing episodes occurred last night, causing major discomfort. - He has been having pain in the back due to the cough. - Has been congested but does not have ear pain or sore throat. - No history of asthma, but an inhaler was provided at the hospital. - Recent colonoscopy and canceled knee surgery due to the cough. - Multiple surgeries this year, including shoulder surgery. - X-ray was recommended. - He has no fever, chills, CP, SOB, sick contacts, or smoking. Physical Exam VSS, pt well appearing General: Cooperative, healthy appearing, comfortable and no acute distress Orientation/consciousness: Patient oriented x3 Ears: Hearing grossly normal bilaterally, external ears normal and TM's normal bilaterally Nose: Normal external nose present, Normal nares present and No nasal discharge present Face and sinus: Normal facial exam and Yes sinuses nontender Mouth: Normal oral and palatal mucosa present and moist mucous membranes Throat: Yes tonsils normal, Yes uvula midline. Posterior oropharynx erythema, no exudates Neck: Normal visual inspection, full ROM. No lymphadenopathy noted. Respiratory: Clear to auscultation bilaterally. Normal respiratory effort, able to speak in complete sentences, Actively coughing, no respiratory distress, not tachypneic, no tripod positioning and no use of accessory muscles Cardiovascular: Regular rate and rhythm. Normal S1 and S2 Patient was informed and verbally consented to the use of an ambient scribe for clinic note documentation during this visit [facility] Medical History (Updated 01/05/25 @ 09:06 by Renee Quiroz [facility]) Seborrheic keratosis Bilateral carpal tunnel syndrome Degenerative disc disease, lumbar Degenerative disc disease, cervical Back pain Umbilical hernia GERD (gastroesophageal reflux disease) Nocturia H/O multiple concussions Habitual snoring Murmur Myocardial infarction Depression Anxiety Hx of gastroesophageal reflux (GERD) Arthritis High cholesterol Surgical History (Updated 01/05/25 @ 08:03 [facility] H/O eye surgery H/O wisdom tooth extraction Hx of umbilical hernia repair History of carpal tunnel surgery of left wrist History of carpal tunnel surgery of right wrist History of colonoscopy (~2014) Family History Mother HTN (hypertension) Hypercholesteremia Breast cancer Father HTN (hypertension) Hypercholesteremia Melanoma Cancer Brother Colon cancer Social History Housing: Other (mobile home) Housing Other:: mobile home Are you a primary interior plant caretaker to a significant other at home: No Do you presently have visiting nurse or other home services: No Patient Tobacco Use Status: Never used Tobacco e-Cigarette/Vaping Use: Never Used Second Hand Smoke Exposure: No service: No Current occupational status: employed Current occupation: [employer] Current occupational exposures/hazards: No Cognitive needs: No Hearing needs: Yes (can see close. ) Vision needs: No Review of Systems Const All systems reviewed & are unremarkable except as noted in HPI and below Physical Exam Vital Signs: Last Vital Signs Temp 98.5 F 01/07/25 13:30 Pulse 88 01/07/25 13:30 BP 100/70 01/07/25 13:30 Pulse Ox 95 01/07/25 13:30 Oxygen Delivery Method Room Air 01/07/25 13:30 BMI result Body Mass Index 29.2 Results Reviewed Results Reviewed: Reviewed CXR and it was normal Assessment & Plan Assessment & Plan (1) Cough: Code(s): R05.9 - Cough, unspecified Qualifiers: Cough type: acute Qualified Code(s): R05.1 - Acute cough Plan Most likely URI vs bronchitis vs CAP vs covid vs flu Plan - Order chest x-ray to rule out pneumonia. - Conduct tests for flu, COVID-19, and RSV. - Consider prednisone and cough medicine if symptoms persist. - Follow up with PCP. Orders: Orders SARS-CoV2/FLU/RSV Today R09.89 - Other specified symptoms and signs involving the circulatory and respiratory systems XR chest 2V Today R05.9 - Cough, unspecified Medications: New benzonatate 100 mg PO bid-tid PRN 21 caps 0RF Cough 7 days prednisone 50 mg PO daily 5 tabs 0RF 5 days Coding Level of Care Code Est Pt Level 4 (94620) Diagnoses Acute cough R05.1 Cough type: acute
== END 2025-01-07 16:22 | disposition home or self-care (01) ==
PROVIDERS: PCP Nurse Practitioner Family; Visit Provider Physician Assistant Medical
DX: R05.1 Acute cough (principal)

== ENCOUNTER 2025-01-07 14:15 | Outpatient (REF) | payer OTHER, SELFPAY ==
--- NOTE | ~2025-01-07 | XR_ITS ---
EXAMINATION: XR CHEST CLINICAL INFORMATION: R05.9 - Cough, unspecified COMPARISON: 10/17/2024 TECHNIQUE: 2 views of the chest were obtained. FINDINGS: The cardiac, hilar, and mediastinal contours are normal. The lungs are clear bilaterally. There is no pneumothorax or pleural effusion. There is no focal osseous or soft tissue abnormality. XR/XR chest 2V IMPRESSION: No active pulmonary disease. Electronically signed by: Oc Arellano MD 01/07/2025 02:37 PM EDT
[2025-01-07 18:24] LABS: Influenza A PCR NEGATIVE (Negative); Influenza B PCR NEGATIVE (Negative); Resp Syncy Virus RNA Qual PCR NEGATIVE (Negative); SARS COV2 PCR INHOUSE NEGATIVE (Negative)
== END 2025-01-07 14:16 | disposition home or self-care (01) ==
LOC: HO.HMGCX 14:15
PROVIDERS: PCP Nurse Practitioner Family; Visit Provider Physician Assistant Medical
DX: R05.9 Cough, unspecified (principal); R09.89 Other specified symptoms and signs involving the circulatory and respiratory systems
CPT/HCPCS: 0241U; 71046

== ENCOUNTER → 2025-01-07 14:19 | Outpatient (BNV) | payer OTHER, SELFPAY | PROVIDERS: PCP Nurse Practitioner Family; Visit Provider Radiology Diagnostic Radiology | DX: R05.9 Cough, unspecified (principal) | CPT/HCPCS: 71046 ==

== ENCOUNTER 2025-01-08 15:06 | Outpatient (AMB) | payer OTHER, SELFPAY ==
--- NOTE | 2025-01-08 15:06 | A.OFFVIS_ITS ---
Intake Visit Reasons: 3m follow up Intake Note: Patient is present for 3M F/U Urology Medication:TADALAFIL Antibiotic Allergy:NONE Blood Thinner:NONE Patient Information Coordinator Required: No Allergies codeine (Codeine) Adverse Reaction (Mild, Verified 01/08/25 15:07) NAUSEA & VOMITING oxycodone (From Percodan) Adverse Reaction (Mild, Verified 01/08/25 15:07) NAUSEA & VOMITING HPI Comments Details: Tino is a pleasant male. He is a patient of Dr. Kim. He seen for the following urologic conditions - lower urinary tract symptoms - erectile dysfunction Telemedicine Evaluation 15 min Consultation [employer] Video Three-month follow-up Tadalafil trial Marginal benefit Would like to try alpha helen terazosin prescribed 01/12 0.3 Lower urinary tract symptoms Primarily nocturia Has not used alpha blockers Will trial tadalafil [facility] Medical History (Updated 01/05/25 @ 09:06 by Renee Quiroz, [facility]) Seborrheic keratosis Bilateral carpal tunnel syndrome Degenerative disc disease, lumbar Degenerative disc disease, cervical Back pain Umbilical hernia GERD (gastroesophageal reflux disease) Nocturia H/O multiple concussions Habitual snoring Murmur Myocardial infarction Depression Anxiety Hx of gastroesophageal reflux (GERD) Arthritis High cholesterol Surgical History (Updated 01/05/25 @ 08:03 [facility] H/O eye surgery H/O wisdom tooth extraction Hx of umbilical hernia repair History of carpal tunnel surgery of left wrist History of carpal tunnel surgery of right wrist History of colonoscopy (~2014) Family History Mother HTN (hypertension) Hypercholesteremia Breast cancer Father HTN (hypertension) Hypercholesteremia Melanoma Cancer Brother Colon cancer Social History Housing: Other (mobile home) Housing Other:: mobile home Are you a primary care assistant to a significant other at home: No Do you presently have visiting nurse or other home services: No Patient Tobacco Use Status: Never used Tobacco e-Cigarette/Vaping Use: Never Used Second Hand Smoke Exposure: No service: No Current occupational status: employed 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 ) Vision needs: No Assessment & Plan Assessment & Plan (1) BPH associated with nocturia: Code(s): N40.1 - Benign prostatic hyperplasia with lower urinary tract symptoms; R35.1 - Nocturia Category: Medical (2) Erectile dysfunction: Code(s): N52.9 - Male erectile dysfunction, unspecified Category: Medical Qualifiers: Erectile dysfunction type: vasculogenic Vasculogenic erectile dysfunction type: due to arterial insufficiency Qualified Code(s): N52.01 - Erectile dysfunction due to arterial insufficiency Plan 3m f/u tele f/u Orders: Orders US bladder 01/08/25 N40.1 - Benign prostatic hyperplasia with lower urinary tract symptoms, R35.1 - Nocturia, R39.12 - Poor urinary stream Medications: New terazosin 5 mg PO BEDTIME 30 caps 2RF 30 days N40.1 - Benign prostatic hyperplasia with lower urinary tract symptoms, R35.1 - Nocturia Patient Instructions: This note is constructed using voice recognition software. While every effort has been made to ensure accuracy property and casualty insurance agent errors may have been included. Imaging studies, laboratory and physical exam results were discussed and reviewed in detail. No major barriers to patient understanding were identified. An opportunity to ask questions regarding the treatment plan was provided. All questions were answered. The patient expressed understanding and agreement with the above treatment plan. The patient is aware they should contact our office by phone for worsening of their current condition or the appearance of new urologic symptoms. Compliance is encouraged with any medications and followup testing that is ordered. It is a privilege to participate in the urologic care of your patient. If you have any questions or concerns regarding treatment for the above conditions, or other urologic issues, please do not hesitate to contact me. The office telephone contact is [phone]. Sincerely, Dr Prasanna Stephenson MD, [facility] - Urology Compassionate Specialist Care for the Genitourinary System Coding Level of Care Code Tele Est Pt Level 4 (61896) Diagnoses BPH associated with nocturia N40.1; R35.1 Erectile dysfunction due to arterial insufficiency N52.01 Erectile dysfunction type: vasculogenic Vasculogenic erectile dysfunction type: due to arterial insufficiency
== END 2025-01-08 16:02 | disposition home or self-care (01) ==
LOC: HO.HUSH 15:06
PROVIDERS: PCP Nurse Practitioner Family; Visit Provider Urology
DX: N40.1 Benign prostatic hyperplasia with lower urinary tract symptoms (principal); R35.1 Nocturia; N52.01 Erectile dysfunction due to arterial insufficiency
CPT/HCPCS: 99214

== ENCOUNTER → 2025-01-08 15:06 | Outpatient (BNVA) | payer OTHER, SELFPAY | PROVIDERS: PCP Nurse Practitioner Family; Visit Provider Urology ==

== ENCOUNTER 2025-01-14 08:16 | Outpatient (AMB) | payer OTHER, SELFPAY ==
--- NOTE | 2025-01-14 08:20 | MHC.PC.OV ---
Vital Signs 01/14/25 08:24 Height 5 ft 8 in Weight 198 lb BMI 30.1 BP 142/80 H Blood Pressure Location Lt brachial Position Sitting Respiration 12 Pulse 57 Pulse Source Pulse Oximeter Temp 97.2 F Temp Source Oral Pulse Oximetry (%) 96 Oxygen Delivery Method Room Air Intake Visit Reasons: please call and schedule end of next week Intake Note: Pre op for right knee surgery Quality Rep Required: No Allergies codeine (Codeine) Adverse Reaction (Mild, Verified 01/14/25 08:29) NAUSEA & VOMITING oxycodone (From Percodan) Adverse Reaction (Mild, Verified 01/14/25 08:29) NAUSEA & VOMITING Medication List - Last Reconciled 01/14/25 by Renee Quiroz, OPERATIONS SUPPORT SPECIALIST- albuterol sulfate 90 mcg/actuation (Ventolin HFA) 1 inh inhalation QID PRN benzonatate 100 mg PO bid-tid PRN 7 days bisacodyl (Dulcolax (bisacodyl)) 20 mg (4 x 5 mg) PO ONCE 1 day ibuprofen 600 mg PO Q8H PRN multivitamin 1 tab PO DAILY pantoprazole 40 mg PO QAM prednisone 50 mg PO daily 5 days tadalafil 20 mg PO DAILY 90 days tadalafil 5 mg PO DAILY terazosin 5 mg PO BEDTIME 30 days Tobacco use date assessed: 01/14/25 Dental Screening Dental Screen Date: 01/14/25 Did you have a dental visit in the last 12 months?: Yes Did you have a dental problem in the last 6 months where you did not have access to dental care?: No Was dental information given to patient?: Patient has dentist HPI HPI Comments History of Present Illness Details 63 y/o M OA, erectile dysfunction, GERD, BPH, MDD, ASHWIN, HLD, PVD , Seborrheic keratosis, family hx colon ca (dad and brother), cervical DJD s/p excision Seborrheic keratosis, inflamed [facility] Gen surgeon 04/2024, umbilical hernia repair, CTS bilat, R shoulder surgery, eye surgery Family hx: has 4 children, 1 of methadone overdose, Dad and bro with CRC Mom HTN HLD Breast ca Health Maintenance: Colon scheduled this week at [facility] PSA 12/2023 WNL Tdap - 11/2023, Declined flu 2023 Specialists: Optho cannot afford more medical bills; aware overdue. Hx of blindness Ortho Uro GI Neuro Here today for preoperative clearance. He was in the office last week for pre-op clearance which was granted but he developed a cough. He was seen at [facility] CXR and Viral swab negative Given Tessalon, Albuterol and 5 days of prednisone. He completed pred today. Doesnt like Albuterol; no wheezing. Tessalon helping. Feels better. Cough present but improved w/o Fever. Surgery Type: Rt knee medial meniscus tear repair Anesthesia Type: General Surgeon: Dr Hernandez Date: 01/29/25 Any past surgical procedures: Denies Any complications from anesthesia or in post-op period: Denies ASA or NSAID Use: Ibu a few times per day. Current smoker: Smokes marijuana Alcohol use: Rare Drug use: Marijauana METs: > 4 climb flight of stairs, golf, walk, yardwork Medical history: Asthma No COPD No Obesity BMI 30.1 Diabetes No TX < 6 weeks, unstable angina, CHF, severe valve disease No Testing EKG: done in office at last visit, NSR Labs done today, see below, normal. RCRI is Class 0 Risk Stratification: 3.9% Education Aspirin and NSAIDS should be discontinued one week before surgery to prevent excessive bleeding. If you are a smoker, there is increase risk of post surgical complications. Cessation is encouraged. Follow up with surgeon and all recommendations pre and post operatively. Patient is medically cleared to proceed with surgery. Physical Exam General: Well developed, well nourished, in no acute distress. Appears stated age. Head: Normocephalic, atraumatic. Eyes: Pupils are equal, round and reactive to light and accommodation. Conjunctivae are clear. Scleras nonicteric bilat Nose: Patent, without discharge. Neck: Supple, no adenopathy or thyromegaly. No carotid bruit bilat Lungs: Clear to auscultation bilaterally. No rales, rhonchi or wheeze noted. Good air flow in all bustamante. Occassional dry cough, no distress. Heart: Regular rate and rhythm. No murmurs, click, rubs or gallops are noted. Abdomen: Bowel sounds present in all quadrants. The abdomen is soft, nontender, with no masses or organomegaly noted. No hernias are noted. Pulses: Peripheral pulses are equal and palpable bilaterally. Extremities: No clubbing, cyanosis nor edema is noted. Hairless lower ext, skin intact; wearing brace to R knee. Neurologic: Gait and station normal. Cranial Nerves 2-12 intact. Motor strength grossly symmetrical and intact. No sensory loss. Balance normal. Skin: No rashes, ulcers, or lesions noted. Turgor is good. Skin color is good. See pic of L middle finger cuticle. Noted raised birthmark on the left chest area, see picture, L anterior chest. Psych: Normal eye contact, affect and mood appropriate, and normal interactions. Patient is alert and appropriate to context. Scored a little for depression and anxiety, but denies any thoughts of self-harm or harm to others. Total time spent caring for the patient today was 40 minutes. This includes time spent before the visit reviewing the chart, time spent during the visit, and time spent after the visit on documentation, reviewing laboratory results, diagnostic imaging, medications, performing a medically necessary evaluation, counseling on diagnoses, care coordination, ordering appropriate tests, ordering appropriate medications, review of tests performed by other providers, reporting test results with the patient, communication with other healthcare providers. [facility] Medical History (Updated 01/14/25 @ 08:49 by Renee Quiroz, OPERATIONS SUPPORT SPECIALIST-) Anxiety Arthritis Back pain Bilateral carpal tunnel syndrome Degenerative disc disease, cervical Degenerative disc disease, lumbar Depression GERD (gastroesophageal reflux disease) H/O multiple concussions Habitual snoring High cholesterol Hx of gastroesophageal reflux (GERD) Murmur Myocardial infarction Nocturia Seborrheic keratosis Umbilical hernia Surgical History (Updated 01/05/25 @ 08:03 by GABRIEL Feldman-) H/O eye surgery H/O wisdom tooth extraction History of carpal tunnel surgery of left wrist History of carpal tunnel surgery of right wrist History of colonoscopy (~2014) Hx of umbilical hernia repair Family History Mother HTN (hypertension) Hypercholesteremia Breast cancer Father HTN (hypertension) Hypercholesteremia Melanoma Cancer Brother Colon cancer Social History Housing: Other (mobile home) Housing Other:: mobile home Are you a primary urgent care to a significant other at home: No Do you presently have visiting nurse or other home services: No Patient Tobacco Use Status: Never used Tobacco e-Cigarette/Vaping Use: Never Used Second Hand Smoke Exposure: No service: No Current occupational status: employed 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 ) Vision needs: No Questionnaire PHQ-9 Over the last 2 weeks, how often have you been bothered by any of the following problems? 1. Little interest or pleasure in doing things: not at all 2. Feeling down, depressed, or hopeless: not at all 3. Trouble falling or staying asleep, or sleeping too much: not at all 4. Feeling tired or having little energy: not at all 5. Poor appetite or overeating: not at all 6. Feeling bad about yourself - or that you are a failure or have let yourself or your family down: not at all 7. Trouble concentrating on things, such as reading the newspaper or watching television: not at all 8. Moving or speaking so slowly that other people could have noticed. Or the opposite - being so fidgety or restless that you have been moving around a lot more than usual: not at all 9. Thoughts that you would be better off or of hurting yourself in some way: not at all Total score: 0 Depression Screening Interpretation: Negative Depression Screening Done: Yes 49427 - PHQ-9 Billing: Yes Source: Developed by Drs. Melchor Bhatia, Zayda Rodarte, Brandon Montoya and colleagues, with an educational sal from [employer]. Thrive Questionnaire Date Thrive assessed: 01/05/25 I am a: Patient What is your living situation today?: I have a steady place to live Within the past 12 months, did the food you bought not last and you didn't have the money to get more?: Never true Within the past 12 months, did you worry whether your food would run out before you got money to buy more?: Sometimes True Do you have trouble paying for medicines?: No Do you have trouble getting transportation to medical appointments?: No Do you have trouble paying your heating and electricity bill?: Yes Do you have trouble taking care of your child, family member or friend?: No Do you have trouble with day-to-day activities such as bathing, preparing meals, shopping, managing finances, etc.?: No Are you currently unemployed and looking for a job?: I choose not to answer this question Are you interested in more education?: No Please select the resources that you would like help with: None Currently or been in a relationship where the following occur: I choose not to answer THRIVE Score: 2 ASHWIN-7 AMB Questionnaire ASHWIN-7 Date ASHWIN - 7 assessed: 01/14/25 Feeling nervous, anxious, or on edge: 0 = Not at all Not being able to stop or control worryin = Not at all Worrying too much about different things: 0 = Not at all Trouble relaxin = Not at all Being so restless that it is hard to sit still: 0 = Not at all Becoming easily annoyed or irritable: 0 = Not at all Feeling afraid as if something awful might happen: 0 = Not at all Total ASHWIN-7 score (0-4 normal; 5-9 mild; 10-14 moderate; 15-21 severe): 0 Source: Developed by Drs. Melchor Bhatia, Zayda Rodarte, Brandon Montoya and colleagues, with an educational sal from [employer]. ASHWIN-7 Assessment Billing ASHWIN-7 Assessment Tool: ASHWIN-7 Assessment 76163 Physical exam (Primary Care) Vital Signs: Last Vital Signs Temp 97.2 F 01/14/25 08:24 Pulse 57 01/14/25 08:24 Resp 12 01/14/25 08:24 BP 142/80 H 01/14/25 08:24 Pulse Ox 96 01/14/25 08:24 Oxygen Delivery Method Room Air 01/14/25 08:24 BMI result Body Mass Index 30.1 Tobacco/Smoking Status: Tobacco use Status Tobacco use date assessed 01/14/25 01/14/25 08:25 Patient Tobacco Use Status Never used Tobacco 01/14/25 08:21 e-Cigarette/Vaping Use Never Used 01/14/25 08:21 PHQ-9: PHQ-9 Score PHQ-9: Total score 0 01/14/25 08:27 Depression Screening Interpretation: Negative Thrive Assessment: Date of Thrive Assessment Date Thrive assessed 01/05/25 01/14/25 08:21 Currently or been in a relationship where the following occur: I choose not to answer Results Reviewed Results Reviewed: ADM Date: 01/07/[address]: Rut Gutierrez PA-C Ordering Physician: RUT GUTIERREZ Date of Service: 01/07/25 Procedure(s): XR chest 2V Accession Number(s): [id number] cc: RUT GUTIERREZ; Renee Quiroz~ EXAMINATION: XR CHEST CLINICAL INFORMATION: R05.9 - Cough, unspecified COMPARISON: 10/17/2024 TECHNIQUE: 2 views of the chest were obtained. FINDINGS: The cardiac, hilar, and mediastinal contours are normal. The lungs are clear bilaterally. There is no pneumothorax or pleural effusion. There is no focal osseous or soft tissue abnormality. XR/XR chest 2V IMPRESSION: No active pulmonary disease. Electronically signed by: Oc Arellano MD 01/07/2025 02:37 PM EDT RUN: 01/14/25 0828 PAGE 1 [facility] [address] [place] [id number] Contracting Specialist: Dangelo Milner M.D. Specimen Inquiry Name: Tino Plunkett Age/Sex: 64/M : 1960 Unit#: [id number] Attend Dr: RUT GUTIERREZ Re01/07/25 Status: DEP REF Location: [facility] Disch: SPEC : [id number] DINA: 01/07/25 STATUS: COMP REQ : [id number] RECD: 01/07/[address]: RUT GUTIERREZ COMP: 01/07/25 ENTERED: 01/07/[address]: Renee Quiroz ORDERED: SARS/FLU/RSV Test Result Flag Reference Influenza A PCR NEGATIVE Negative Influenza B PCR NEGATIVE Negative RSV RNA QualPCR NEGATIVE Negative SARSCOV2 RT-PCR NEGATIVE Negative All test results must be correlated with clinical findings. Negative results do not preclude SARS-CoV2, influenza A virus, influenza B virus and/or RSV infection and should not be used as the sole basis for treatment or other patient management decisions. Negative results must be combined with clinical observations, patient history, and epidemiological information. This test has not been evaluated for monitoring treatment of infection. This test has been authorized by the FDA under an Emergency Use Authorization (EUA) for use by authorized laboratories. Testing performed on the [employer] GeneXpert utilizing real-time RT-PCR. All SARS CoV2 and positive influenza A/B results are reported to [facility]. END OF REPORT Coding Level of Care Code Est Pt Level 5 (36089) Complex EM visit Add On G2211 Diagnoses Pre-op exam Z01.818 Other tear of medial meniscus of right knee as current injury, sequela S83.241S Tear current or old: current Encounter type: sequela Meniscus tear of knee type: other type Additional Codes ASHWIN-7 Assessment Billing - ASHWIN-7 Assessment Tool: ASHWIN-7 Assessment 70410 ([id number]) PHQ-9 - 92325 - PHQ-9 Billing: Yes ([id number]) Assessment & Plan Assessment & Plan (1) Pre-op exam: Comment: Cleared to proceed w/ surgery 01/29/25 Code(s): Z01.818 - Encounter for other preprocedural examination Category: Medical (2) Tear of medial meniscus of right knee: Code(s): S83.241A - Other tear of medial meniscus, current injury, right knee, initial encounter Category: Medical Qualifiers: Tear current or old: current Encounter type: sequela Meniscus tear of knee type: other type Qualified Code(s): S83.241S - Other tear of medial meniscus, current injury, right knee, sequela Plan . Medications: Refilled benzonatate 100 mg PO bid-tid PRN 21 caps 0RF Cough 7 days Discontinued albuterol sulfate 90 mcg/actuation (Ventolin HFA) Discontinued Reason: Patient Completed Course 1 inh inhalation QID PRN 6.7 grams 0RF shortness of breath or wheezing prednisone Discontinued Reason: Patient Completed Course 50 mg PO daily 5 days 5 tabs 0RF
[2025-01-14 08:24] VITALS: BP 142/80; PULSE 57; RESP 12; TEMP 36.2; O2SAT 96; BMI 30.1
== END 2025-01-14 08:40 | disposition home or self-care (01) ==
LOC: HO.HMCFM 08:17
PROVIDERS: PCP Nurse Practitioner Family; Visit Provider Nurse Practitioner Family
DX: S83.241D Other tear of medial meniscus, current injury, right knee, subsequent encounter (principal); Z01.818 Encounter for other preprocedural examination

== ENCOUNTER → 2025-01-14 08:16 | Outpatient (BNVA) | payer OTHER, SELFPAY | PROVIDERS: PCP Nurse Practitioner Family; Visit Provider Nurse Practitioner Family | DX: Z01.818 Encounter for other preprocedural examination (principal); N52.9 Male erectile dysfunction, unspecified; K21.9 Gastro-esophageal reflux disease without esophagitis; N40.0 Benign prostatic hyperplasia without lower urinary tract symptoms; F41.1 Generalized anxiety disorder; E78.5 Hyperlipidemia, unspecified; I73.9 Peripheral vascular disease, unspecified; S83.241S Other tear of medial meniscus, current injury, right knee, sequela; X58.XXXS Exposure to other specified factors, sequela | CPT/HCPCS: 96127; 99212 ==

== ENCOUNTER 2025-01-15 06:59 | Day surgery (SDC) | payer OTHER, SELFPAY ==
[2025-01-06 11:38] VITALS: BMI 29.5
[2025-01-15] VITALS (9 sets, daily range): BP systolic 125–152; BP diastolic 74–101; PULSE 58–68; RESP 11–24; TEMP 36.2–36.4; O2SAT 94–97; BMI 29.5
[2025-01-15] MEDS: Lactated Ringers 1,000 ML 100 ML IVCONT (07:43)
--- NOTE | 2025-01-15 08:30 | P.CONAN_ITS ---
Documented by User: Sangeetha Guardado NP 01/14/25 12:00 HPI - Anesthesia Eval Consult details Narrative: 64yo M for Right Knee Arthroscopy,with partial medial mensicectomy s/p Elver[place] 01/07/25: Pt present with URI symptoms. Was originally booked for double and knee scope the following day, but d/t respiratory illness anesthesia only willing to proceed with colonoscopy. Has since been tx'd with prednison taper, Viral swab and CXR negative. Re-cleared by PCP. s/p Right Shoulder Arthroscopy, distal clavicle excision, acromioplasty, capsular release, manipulation, 10/23/24, GA-ETT 7 (no anesthetic issues) ?[place] 20 years ago - was admitted through ER but d/t insurance issue, left ama and no follow up. No issues since [facility] Active Problems Active Problems: All Active Problems Obesity (BMI 30-39.9) (Acute) Finger lesion (Acute) Atypical pigmented skin lesion (Acute) Tear of medial meniscus of right knee (Acute) Stiffness of right hand joint (Acute) Cervical disc disorder (Acute) Lumbar degenerative disc disease (Acute) Cervical stenosis of spinal canal (Acute) Impingement of right shoulder (Acute) Neck pain, bilateral (Acute) Screen for colon cancer (Acute) PVD (peripheral vascular disease) (Acute) Erectile dysfunction (Acute) Hyperlipidemia (Acute) BPH associated with nocturia (Acute) ASHWIN (generalized anxiety disorder) (Acute) MDD (major depressive disorder), recurrent episode (Acute) Encounter for general adult medical examination with abnormal findings (Acute ~01/05/25) Insomnia (Acute) GERD (gastroesophageal reflux disease) (Acute) Right shoulder tendinitis (Acute) Past Medical History Medical History (Updated 01/15/25 @ 07:45 by Allison Saunders RN) Seborrheic keratosis Bilateral carpal tunnel syndrome Degenerative disc disease, lumbar Degenerative disc disease, cervical Back pain Umbilical hernia GERD (gastroesophageal reflux disease) Nocturia H/O multiple concussions Habitual snoring Murmur Myocardial infarction Depression Anxiety Hx of gastroesophageal reflux (GERD) Arthritis High cholesterol Family History Family History Mother HTN (hypertension) Hypercholesteremia Breast cancer Father HTN (hypertension) Hypercholesteremia Melanoma Cancer Brother Colon cancer Family history of problems with anesthesia: No Surgical History Surgical History (Updated 01/15/25 @ 07:14 by Allison Saunders RN) Hx of abdominal surgery H/O eye surgery H/O wisdom tooth extraction Hx of umbilical hernia repair History of carpal tunnel surgery of left wrist History of carpal tunnel surgery of right wrist History of colonoscopy (~2014) History of Problems with Anesthesia: No Social History Social History Housing: Other (mobile home) Housing Other:: mobile home Are you a primary medicare contact specialist to a significant other at home: No Do you presently have visiting nurse or other home services: No Patient Tobacco Use Status: Never used Tobacco e-Cigarette/Vaping Use: Never Used Second Hand Smoke Exposure: No Use of substances other than those prescribed or required for medical reasons: Yes Substance Use Type Other:: last used 5 days ago Substance Use Frequency: Occasionally Are you DNR?: No Advance Directives: No Advance Directives Information Provided: Yes service: No Current occupational status: employed 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 ) Vision needs: No Meds Allergies Allergy/AdvReac Type Severity Reaction Status Date / Time codeine (Codeine) AdvReac Mild NAUSEA & Verified 01/15/25 07:15 VOMITING oxycodone (From Percodan) AdvReac Mild NAUSEA & Verified 01/15/25 07:15 VOMITING Active Medications: Current Medications Cefazolin Sodium/Dextrose (Ancef) 2 gm in 50 mls @ 100 mls/hr IV PREOP ONE Stop: 01/08/25 06:08 Home Medications ?Medication ?Instructions ?Recorded ?Confirmed ?Last Taken ?Type multivitamin 1 tab PO DAILY 10/02/24/02/12 Unknown History Exam Height,Weight and Vital Signs: Height 5 ft 8 in Weight 87.997 kg Pertinent Lab Results Pertinent Lab Results: Laboratory Tests 01/05/25 09:20 WBC 5.0 Hgb 15.7 Hct 46.8 Plt Count 248 Sodium 139 Potassium 4.2 Chloride 107 Carbon Dioxide 23 BUN 19 H Creatinine 1.03 Narrative Narrative: XR chest 2V 01/07/25 IMPRESSION: No active pulmonary disease. EKG 09/2024 Vent. Rate : 66 BPM Atrial Rate : 66 BPM P-R Int : 136 ms QRS Dur : 84 ms QT Int : 400 ms P-R-T Axes : 47 63 61 degrees QTcB Int : 419 ms Normal sinus rhythm with sinus arrhythmia Normal ECG When compared with ECG of 14-Dec-2004 06:37, No significant change was found Assessment and Plan Assessment Anesthesia Assessment: Chart Reviewed Final Anesthetic Review Family History of Problems with Anesthesia: No History of Problems with Anesthesia: No Documented by User: Allison Duran DO 01/15/25 08:30 HPI - Anesthesia Eval Consult details Narrative: 64yo M for Right Knee Arthroscopy,with partial medial mensicectomy s/p Elver[place] 01/07/25: Pt present with URI symptoms. Was originally booked for double and knee scope the following day, but d/t respiratory illness anesthesia only willing to proceed with colonoscopy. Has since been tx'd with prednisone taper, Viral swab and CXR negative. Re-cleared by PCP. s/p Right Shoulder Arthroscopy, distal clavicle excision, acromioplasty, caps ular release, manipulation, 10/23/24, GA-ETT 7 (no anesthetic issues) ?[place] 20 years ago - was admitted through ER but d/t insurance issue, left ama and no follow up. No issues since [facility] Past Medical History Medical History (Updated 01/15/25 @ 07:45 by Allison Saunders RN) Seborrheic keratosis Bilateral carpal tunnel syndrome Degenerative disc disease, lumbar Degenerative disc disease, cervical Back pain Umbilical hernia GERD (gastroesophageal reflux disease) Nocturia H/O multiple concussions Habitual snoring Murmur Myocardial infarction Depression Anxiety Hx of gastroesophageal reflux (GERD) Arthritis High cholesterol Family History Family History Mother HTN (hypertension) Hypercholesteremia Breast cancer Father HTN (hypertension) Hypercholesteremia Melanoma Cancer Brother Colon cancer Family history of problems with anesthesia: No Surgical History Surgical History (Updated 01/15/25 @ 07:14 by Allison Saunders RN) Hx of abdominal surgery H/O eye surgery H/O wisdom tooth extraction Hx of umbilical hernia repair History of carpal tunnel surgery of left wrist History of carpal tunnel surgery of right wrist History of colonoscopy (~2014) History of Problems with Anesthesia: No Social History Social History Housing: Other (mobile home) Housing Other:: mobile home Are you a primary medicare contact specialist to a significant other at home: No Do you presently have visiting nurse or other home services: No Patient Tobacco Use Status: Never used Tobacco e-Cigarette/Vaping Use: Never Used Second Hand Smoke Exposure: No Use of substances other than those prescribed or required for medical reasons: Yes Substance Use Type Other:: last used 5 days ago Substance Use Frequency: Occasionally Are you DNR?: No Advance Directives: No Advance Directives Information Provided: Yes service: No Current occupational status: employed 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 ) Vision needs: No Meds Allergies Allergy/AdvReac Type Severity Reaction Status Date / Time codeine (Codeine) AdvReac Mild NAUSEA & Verified 01/15/25 07:15 VOMITING oxycodone (From Percodan) AdvReac Mild NAUSEA & Verified 01/15/25 07:15 VOMITING Home Medications ?Medication ?Instructions ?Recorded ?Confirmed ?Last Taken ?Type multivitamin 1 tab PO DAILY 10/02/2412/21 Unknown History Exam Exam Date and Time: 01/15/25 0829 Height,Weight and Vital Signs: Height 5 ft 8 in Weight 87.997 kg Vital Signs Temperature 97.5 F 01/15/25 07:27 Pulse Rate 58 01/15/25 07:27 Respiratory Rate 15 01/15/25 07:27 Blood Pressure 133/78 01/15/25 07:27 Pulse Oximetry 95 01/15/25 07:27 Oxygen Delivery Method Room Air 01/15/25 07:27 Temperature 97.5 F 01/15/25 07:27 Pulse Rate 58 01/15/25 07:27 Respiratory Rate 15 01/15/25 07:27 Blood Pressure 133/78 01/15/25 07:27 Pulse Oximetry 95 01/15/25 07:27 Oxygen Delivery Method Room Air 01/15/25 07:27 Airway Mallampati Class: II TM Dist: >3cm Neck ROM: Limited Partial: Upper Heart: S1S2 Lungs: CTAB Assessment and Plan Assessment Anesthesia Assessment: Anesthesia Plan Discussed and Chart Reviewed Final Anesthetic Review Family History of Problems with Anesthesia: No History of Problems with Anesthesia: No NPO: Yes ASA Class: II Final Preanesthetic Review: No Changes in Pt Med Stat, Meds/Allgs Chart Reviewed, Consent Obtained/Reviewed and Anes Risks/Benef Reviewed Patient Risk: Low Procedure Risk: Low Anesthetic Plan Anesthetic Plan: GA and Agree w/ Assess. and Plan Disposition: Standard PACU
[2025-01-15] MEDS: ceFAZolin Sodium/Dextrose,Iso 2 GM/50 ML PIGGYBACK IV (09:05)
[2025-01-15] MEDS: Acetaminophen 1,000 MG/100 ML PIGGYBACK 400 MG IV (09:13)
[2025-01-15] MEDS: fentaNYL citrate/PF 100 MCG/2 ML VIAL 50 MCG IVPUSH ×2 (10:07→10:12)
--- NOTE | 2025-01-15 10:23 | P.BOP_ITS ---
Brief Operative Note Date of Service: 01/15/25 Pre-op diagnosis: Right knee medial meniscus tear, right knee degenerative joint disease Post-op diagnosis: same Procedure: Right knee arthroscopic partial medial meniscectomy, right knee arthroscopic chondroplasty of the undersurface of the patella as well as the medial femoral condyle Implants: None Surgeon: Anderson Hernandez MD Anesthesia: GLMA Was an Engineering Production Worker used for this Procedure?: No Estimated blood loss (mL): 10 Pathology: none sent Condition: stable Disposition: PACU
[2025-01-15] MEDS: cefTRIAXone sodium 1 GM VIAL IVPUSH (10:24)
--- NOTE | 2025-01-15 10:24 | W.PM.OPN ---
Operative Note Operative Note Date of Service: 01/15/25 Narrative: After the patient was identified as Tino Plunkett and his right knee was initialed by myself they were brought to the operating room where general anesthesia was induced by the anesthesiologist in routine fashion. The patient was given 2 g of IV Ancef for infection prophylaxis. A formal time-out was completed. The patient's right lower extremity was prepped and draped in sterile fashion. Marcaine with epinephrine was injected into the planned incision sites as well as their right knee joint. A # 11 scalpel blade was used to make an anterolateral portal 1 cm proximal to the joint line and 1 cm lateral to the patellar tendon. Blunt trocar technique was used into the suprapatellar pouch with the knee in extension. Diagnostic arthroscopy showed multiple bands of thickened plica which would be excised at the end of the procedure. There were no loose bodies or abnormalities found in either the medial or lateral gutters. There were diffuse grades 1 and 2 degenerative changes of the undersurface of the patella as well as grades 1 and 2 degenerative changes of the trochlear groove. The patient's knee was flexed to 45 degrees and a valgus force was placed upon it. The medial compartment was entered. An anteromedial portal was made 1 cm proximal to the joint line and 1 cm medial to the patellar tendon. Probing of the medial meniscus showed a radial tear of the posterior horn. A partial medial meniscectomy was performed using the arthroscopic shaver. Following the partial meniscectomy the remainder of the meniscus tissue was stable. There were diffuse grade 2 degenerative changes of the medial femoral condyle as well as diffuse grades 1 and 2 degenerative changes of the medial tibial plateau. The articular surface of the medial femoral condyle was made smooth using the arthroscopic shaver. The articular surface of the medial tibial plateau was already smooth so no chondroplasty was indicated. The patient's knee was then placed into a neutral position. There was no injury to the anterior cruciate ligament. The patient's knee was then placed into the figure of 4 position and the lateral compartment was entered. There were minimal degenerative changes of the lateral femoral condyle and lateral tibial plateau. There was no evidence of lateral meniscus tearing. The patient's knee was once again brought into extension and the suprapatellar pouch was entered. The arthroscopic shaver and the ArthroCare Wand were used to excise the thickened bands of plica. The undersurface of the patella was then made smooth using the arthroscopic shaver. The articular surface of the trochlear groove was already smooth so no chondroplasty was indicated. The knee joint was irrigated and then drained. All arthroscopic instruments were removed. The 2 portals were closed with 3-0 nylon interrupted suture. The knee joint was injected with Marcaine. Dry sterile dressing and Markell bandages were placed over the patient's knee. The patient was awoken and extubated in the operating room. They were transferred to the recovery room in stable condition.
== END 2025-01-15 11:11 | disposition home or self-care (01) ==
PROVIDERS: PCP Nurse Practitioner Family; Visit Provider Orthopaedic Surgery
PROC: (CPT 29870; principal; 2025-01-15 09:00)
DX: S83.241A Other tear of medial meniscus, current injury, right knee, initial encounter (principal); M17.11 Unilateral primary osteoarthritis, right knee; M23.51 Chronic instability of knee, right knee; M25.561 Pain in right knee; M67.51 Plica syndrome, right knee; V89.2XXA Person injured in unspecified motor-vehicle accident, traffic, initial encounter; Y93.89 Activity, other specified; Y92.9 Unspecified place or not applicable; Y99.9 Unspecified external cause status; I25.2 Old myocardial infarction; R01.1 Cardiac murmur, unspecified; E78.00 Pure hypercholesterolemia, unspecified; Z87.820 Personal history of traumatic brain injury; M50.30 Other cervical disc degeneration, unspecified cervical region; M51.369 Other intervertebral disc degeneration, lumbar region without mention of lumbar back pain or lower extremity pain; F32.A Depression, unspecified; F41.9 Anxiety disorder, unspecified; Z79.1 Long term (current) use of non-steroidal anti-inflammatories (NSAID); Z79.899 Other long term (current) drug therapy; Z88.5 Allergy status to narcotic agent; Z98.890 Other specified postprocedural states
CPT/HCPCS: 29881; J0131; J0171; J0690; J0696; J1100; J1885; J2003; J2405; J2704; J2795; J3010

== ENCOUNTER → 2025-01-15 06:59 | Outpatient (BNV) | payer OTHER, SELFPAY | PROVIDERS: PCP Nurse Practitioner Family; Visit Provider Orthopaedic Surgery | DX: S83.241A Other tear of medial meniscus, current injury, right knee, initial encounter (principal) | CPT/HCPCS: 29881 ==

== ENCOUNTER 2025-01-29 08:50 | Outpatient (AMB) | payer OTHER, SELFPAY ==
--- NOTE | 2025-01-29 08:52 | MHC.OFFVIS ---
Intake Visit Reasons: PO RT knee 01/15/25 Intake Note: Tino is a 64 year old male who presents today as a post op visit for his right knee 01/15/25 Dr. Hernandez. Patient states he is doing well. He explained having some pain behind his calf. Patient expresses that he did some yard work for 2 and a half hours and unsure if he over did it. Allergies codeine (Codeine) Adverse Reaction (Mild, Verified 01/29/25 08:57) NAUSEA & VOMITING oxycodone (From Percodan) Adverse Reaction (Mild, Verified 01/29/25 08:57) NAUSEA & VOMITING Medication List - Last Reconciled 01/29/25 by Omega Sanabria PA-C benzonatate 100 mg PO bid-tid PRN 7 days hydromorphone (Dilaudid) 4 mg PO Q6H PRN ibuprofen 600 mg PO Q8H PRN multivitamin 1 tab PO DAILY pantoprazole 40 mg PO QAM tadalafil 20 mg PO DAILY 90 days tadalafil 5 mg PO DAILY terazosin 5 mg PO BEDTIME 30 days HPI HPI PO RT knee 01/15/25 DR: Details: 64-year-old gentleman returns to the office today status post right knee arthroscopy on 01/15/[address] Hernandez. He states he is doing well. He was outside mowing the lawn and he irritated the knee a little but it has resolved. No other concerns today. [facility] Medical History (Updated 01/15/25 @ 07:45 by Allison Saunders RN) Seborrheic keratosis Bilateral carpal tunnel syndrome Degenerative disc disease, lumbar Degenerative disc disease, cervical Back pain Umbilical hernia GERD (gastroesophageal reflux disease) Nocturia H/O multiple concussions Habitual snoring Murmur Myocardial infarction Depression Anxiety Hx of gastroesophageal reflux (GERD) Arthritis High cholesterol Surgical History (Updated 01/15/25 @ 07:14 by Allison Saunders, HARVINDER) Hx of abdominal surgery H/O eye surgery H/O wisdom tooth extraction Hx of umbilical hernia repair History of carpal tunnel surgery of left wrist History of carpal tunnel surgery of right wrist History of colonoscopy (~2014) Family History Mother HTN (hypertension) Hypercholesteremia Breast cancer Father HTN (hypertension) Hypercholesteremia Melanoma Cancer Brother Colon cancer Social History Housing: Other (mobile home) Housing Other:: mobile home Are you a primary intensive care medicine specialist to a significant other at home: No Do you presently have visiting nurse or other home services: No Comment: tolerable Patient Tobacco Use Status: Never used Tobacco e-Cigarette/Vaping Use: Never Used Second Hand Smoke Exposure: No service: No Current occupational status: employed 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 ) Vision needs: No Review of Systems Const All systems reviewed & are unremarkable except as noted in HPI and below Physical Exam Extrem Other: Right knee incision is clean dry and intact. No erythema or drainage. Full range of motion. Calf is supple and nontender, neurovascularly intact. Results Reviewed Results Reviewed: Brief Operative Note Date of Service: 01/15/25 Pre-op diagnosis: Right knee medial meniscus tear, right knee degenerative joint disease Post-op diagnosis: same Procedure: Right knee arthroscopic partial medial meniscectomy, right knee arthroscopic chondroplasty of the undersurface of the patella as well as the medial femoral condyle Implants: None Surgeon: Anderson Hernandez MD Assessment & Plan Assessment & Plan (1) Tear of medial meniscus of right knee: Code(s): S83.241A - Other tear of medial meniscus, current injury, right knee, initial encounter Category: Medical Qualifiers: Tear current or old: current Encounter type: sequela Meniscus tear of knee type: other type Qualified Code(s): S83.241S - Other tear of medial meniscus, current injury, right knee, sequela Plan: Sutures removed today Steri-Strips applied the patient will begin a course of physical therapy to work on motion and strength/conditioning exercises. I encouraged him to limit his activity to avoid flare-ups. He will see us back in [address] Hernandez, sooner if needed. Coding Level of Care Code Global (07260) Diagnoses Other tear of medial meniscus of right knee as current injury, sequela S83.241S Tear current or old: current Encounter type: sequela Meniscus tear of knee type: other type
== END 2025-01-29 09:21 | disposition home or self-care (01) ==
LOC: HO.HOS 08:50
PROVIDERS: PCP Nurse Practitioner Family; Visit Provider Physician Assistant
DX: S83.241S Other tear of medial meniscus, current injury, right knee, sequela (principal)
CPT/HCPCS: 99024

== ENCOUNTER → 2025-01-29 08:50 | Outpatient (BNVA) | payer OTHER, SELFPAY | PROVIDERS: PCP Nurse Practitioner Family; Visit Provider Physician Assistant | DX: M25.561 Pain in right knee (principal); S83.241S Other tear of medial meniscus, current injury, right knee, sequela | CPT/HCPCS: 99212 ==

== ENCOUNTER 2025-03-01 08:08 | Outpatient (AMB) | payer OTHER, SELFPAY ==
--- NOTE | 2025-03-01 08:11 | MHC.OFFVIS ---
Vital Signs 03/01/25 08:13 Height 5 ft 8 in Weight 174 lb BMI 26.5 Intake Visit Reasons: PO RT knee 01/15/25 Intake Note: Tino is a 64 year old male who presents today post-operatively after undergoing right knee arthroscopy on 01/15/25 Dr. Hernandez. Patient states that with physical therapy he is seeing improvements. No numbness or tingling to report at this time. He added that the brace is really helping and icing with elevating the knee helps with the pain. Allergies codeine (Codeine) Adverse Reaction (Mild, Verified 03/01/25 08:14) NAUSEA & VOMITING oxycodone (From Percodan) Adverse Reaction (Mild, Verified 03/01/25 08:14) NAUSEA & VOMITING Medication List - Last Reconciled 03/01/25 by Anderson Hernandez MD benzonatate 100 mg PO bid-tid PRN 7 days hydromorphone (Dilaudid) 4 mg PO Q6H PRN ibuprofen 600 mg PO Q8H PRN multivitamin 1 tab PO DAILY pantoprazole 40 mg PO QAM tadalafil 20 mg PO DAILY 90 days tadalafil 5 mg PO DAILY terazosin 5 mg PO BEDTIME 30 days PFSH Medical History (Updated 03/01/25 @ 08:23 by Anderson Hernandez MD) Seborrheic keratosis Bilateral carpal tunnel syndrome Degenerative disc disease, lumbar Degenerative disc disease, cervical Back pain Umbilical hernia GERD (gastroesophageal reflux disease) Nocturia H/O multiple concussions Habitual snoring Murmur Myocardial infarction Depression Anxiety Hx of gastroesophageal reflux (GERD) Arthritis High cholesterol Surgical History (Updated 01/15/25 @ 07:14 by Allison Saunders RN) Hx of abdominal surgery H/O eye surgery H/O wisdom tooth extraction Hx of umbilical hernia repair History of carpal tunnel surgery of left wrist History of carpal tunnel surgery of right wrist History of colonoscopy (~2014) Family History Mother HTN (hypertension) Hypercholesteremia Breast cancer Father HTN (hypertension) Hypercholesteremia Melanoma Cancer Brother Colon cancer Social History Housing: Other (mobile home) Housing Other:: mobile home Are you a primary customer care assistant to a significant other at home: No Do you presently have visiting nurse or other home services: No Comment: tolerable Patient Tobacco Use Status: Never used Tobacco e-Cigarette/Vaping Use: Never Used Second Hand Smoke Exposure: No service: No Current occupational status: employed 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 ) Vision needs: No Physical Exam Vital Signs: BMI result Body Mass Index 26.5 Extrem Other: Right knee examination shows that the surgical incisions are healing well, no erythema, mild discomfort with range of motion, no instability Assessment & Plan Assessment & Plan (1) Right knee pain: Code(s): M25.561 - Pain in right knee Category: Medical Plan Mr. Plunkett continues to do well after undergoing right knee arthroscopic surgery on 01/15/2025. He will continue with his physical therapy exercises. He will follow up with me on an as-needed basis should his symptoms not plateau at an unacceptable level over the next few months. Feel free to call me at any time should questions regarding his orthopedic management arise. Coding Level of Care Code Global (57883) Diagnoses Right knee pain M25.561
[2025-03-01 08:13] VITALS: BMI 26.5
== END 2025-03-01 08:28 | disposition home or self-care (01) ==
LOC: HO.HOS 08:09
PROVIDERS: PCP Nurse Practitioner Family; Visit Provider Orthopaedic Surgery
DX: M25.561 Pain in right knee (principal)
CPT/HCPCS: 99024

== ENCOUNTER → 2025-03-01 08:08 | Outpatient (BNVA) | payer OTHER, SELFPAY | PROVIDERS: PCP Nurse Practitioner Family; Visit Provider Orthopaedic Surgery | DX: M25.561 Pain in right knee (principal); Z98.890 Other specified postprocedural states | CPT/HCPCS: 99212 ==

== ENCOUNTER 2025-03-19 08:44 | Outpatient (AMB) | payer OTHER, SELFPAY ==
--- NOTE | 2025-03-19 08:59 | A.OFFVIS_ITS ---
Vital Signs 3 03/19/25 09:13 Height 5 ft 8 in Weight 199 lb BMI 30.3 BP 130/82 Blood Pressure Location Lt brachial Position Sitting Intake Visit Reasons: raised birthmark chest Intake Note: Patient is seen in office for evaluation of a raised birthmark of the chest. Pt c/o: birthmark since a child, was a red patch now is protuding out and getting lumps, father had skin melanoma, painful to the touch Hatchery Attendant Required: No Accompanied by: Spouse Allergies codeine (Codeine) Adverse Reaction (Mild, Verified 03/19/25 09:07) NAUSEA & VOMITING oxycodone (From Percodan) Adverse Reaction (Mild, Verified 03/19/25 09:07) NAUSEA & VOMITING Medication List - Last Reconciled 03/19/25 by Demetrio Garrido MD ibuprofen 600 mg PO Q8H PRN multivitamin 1 tab PO DAILY pantoprazole 40 mg PO QAM terazosin 5 mg PO BEDTIME 30 days HPI Comments Details: 64-year-old male patient returning to the office with a new lesion in the left upper chest. He reports having a birthmark in the left upper chest which has remained fairly stable until recently when a new red bump was noted. This has increased in size fairly rapidly raising concern. Denies any bleeding or discharge from the site. He is requesting excision of this new raised lesion. [facility] Medical History Seborrheic keratosis Bilateral carpal tunnel syndrome Degenerative disc disease, lumbar Degenerative disc disease, cervical Back pain Umbilical hernia GERD (gastroesophageal reflux disease) Nocturia H/O multiple concussions Habitual snoring Murmur Myocardial infarction Depression Anxiety Hx of gastroesophageal reflux (GERD) Arthritis High cholesterol Surgical History Hx of abdominal surgery H/O eye surgery H/O wisdom tooth extraction Hx of umbilical hernia repair History of carpal tunnel surgery of left wrist History of carpal tunnel surgery of right wrist History of colonoscopy (~2014) Family History Mother HTN (hypertension) Hypercholesteremia Breast cancer Father HTN (hypertension) Hypercholesteremia Melanoma Cancer Brother Colon cancer Social History Housing: Other (mobile home) Housing Other:: mobile home Are you a primary resident caregiver to a significant other at home: No Do you presently have visiting nurse or other home services: No Comment: tolerable Patient Tobacco Use Status: Never used Tobacco e-Cigarette/Vaping Use: Never Used Second Hand Smoke Exposure: No service: No Current occupational status: employed 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 ) Vision needs: No Review of Systems Const All systems reviewed & are unremarkable except as noted in HPI and below Physical Exam Vital Signs: Last Vital Signs BP 130/82 03/19/25 09:13 BMI result Body Mass Index 30.3 Const General: cooperative and no acute distress Nutritional Appearance: well nourished Orientation/consciousness: patient oriented x3 Limitations: no limitations HEENT Head: Yes normocephalic and Yes atraumatic Ears: hearing grossly normal bilaterally Chest Chest/axillae images: 2 1. 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 Congenital hemangioma Resp Effort & Inspection: normal respiratory effort, no audible wheezes, no cough and no respiratory distress Cardio Jugular venous distension: no JVD GI Inspection: Yes normal to inspection Skin Other: Warm, dry, no rash Neuro General: patient oriented x3 Extrem General: Yes no clubbing, cyanosis or edema Assessment & Plan Assessment & Plan (1) Hemangioma: Code(s): D18.00 - Hemangioma unspecified site Category: Medical Qualifiers: Hemangioma site: skin Qualified Code(s): D18.01 - Hemangioma of skin and subcutaneous tissue (2) Marquez angioma: Code(s): D18.01 - Hemangioma of skin and subcutaneous tissue Category: Medical Plan 64-year-old male patient with a recent change in a congenital hemangioma with a new marquez angioma development measuring approximately 5 mm in diameter. I recommended excision of this lesion to prevent possible rupture and bleeding. He will returned to the office at his earliest convenience for an excision under local anesthesia. I reviewed the procedure, risks and alternatives, he consents to the surgery. Coding Level of Care Code Est Pt Level 4 (84287) Diagnoses Hemangioma of skin D18. Hemangioma site: skin Marquez angioma D18.01
[2025-03-19 09:13] VITALS: BP 130/82; BMI 30.3
== END 2025-03-19 09:13 | disposition home or self-care (01) ==
LOC: HO.HGS 08:45
PROVIDERS: PCP Nurse Practitioner Family; Visit Provider Surgery
DX: D18.01 Hemangioma of skin and subcutaneous tissue (principal)
CPT/HCPCS: 99214

== ENCOUNTER → 2025-03-19 08:44 | Outpatient (BNVA) | payer OTHER, SELFPAY | PROVIDERS: PCP Nurse Practitioner Family; Visit Provider Surgery | DX: D18.01 Hemangioma of skin and subcutaneous tissue (principal) | CPT/HCPCS: 99212 ==

== ENCOUNTER 2025-04-01 14:18 | Outpatient (REF) | payer OTHER, SELFPAY ==
--- NOTE | ~2025-04-01 | US_ITS ---
CLINICAL HISTORY: R39.12 - Poor urinary stream US bladder with color Doppler Comparison: None Findings: Prostate gland measures 3.4 x 3.5 x 3.8 cm Urinary bladder is unremarkable. Prevoid volume 200 mL. Postvoid volume 18 mL. Ureteral jets are visualized bilaterally Impression: 1. Mildly elevated postvoid residual 2. Prostate volume 22.8 mL This document has been electronically signed by: Adan Wells MD on 04/02/2025 08:39:27
== END 2025-04-01 14:19 | disposition home or self-care (01) ==
LOC: HO.US 14:18
PROVIDERS: PCP Nurse Practitioner Family; Visit Provider Urology
DX: R39.12 Poor urinary stream (principal); N40.1 Benign prostatic hyperplasia with lower urinary tract symptoms; R35.1 Nocturia
CPT/HCPCS: 76857

== ENCOUNTER → 2025-04-01 14:20 | Outpatient (BNV) | payer OTHER, SELFPAY | PROVIDERS: PCP Nurse Practitioner Family; Visit Provider Radiology Diagnostic Radiology | DX: R39.12 Poor urinary stream (principal) | CPT/HCPCS: 76857 ==

== ENCOUNTER 2025-04-05 08:00 | Outpatient (RCR) | payer OTHER, SELFPAY ==
--- NOTE | 2025-02-16 08:58 | MHC.PT.EP ---
[facility] [place] Office [place] Office [place] Office [address] Kaity Singh [address] [phone] F: [phone] F: [phone] F: [phone] F: [phone] Physical Therapy Plan of Care Date of Evaluation: 02/16/25 Date of Surgery: 01/15/25 Diagnosis: other tear of medial meniscus R knee 01/15/25 Assessment: 64 y/o male s/p R partial meniscectomy by Dr. Hernandez on 01/15/25. 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 Examination shows decreased R knee ROM, decreased LE strength, mild swelling, pain, and impaired gait pattern. Recommend PT 2x/week for 4 weeks to address impairments, implement HEP, and optimize functional mobility. Frequency and Duration: The patient will be seen 2x/week for 4 weeks Short Term Goals: 2 weeks I with HEP Improve R knee ROM 0-125 Jail Goals: 4 weeks I with HEP and self management of sx Pt will be able to ambulate > 30 min with pain < 3/10 Pt will be able to ascend/descend ladders carrying >10# with pain < 3/10 Treatment Plan: Modalities to reduce pain, spasms and effusion. Manual therapy to restore motion and function. Therapeutic exercise to improve strength and flexibility. Neuromuscular re-education for posture and balance. Therapeutic activities to return to functional activities of daily living. Electronically signed by: Danielle Michel PT Please sign and return to therapist. Thank you for your referral.
--- NOTE | 2025-04-05 08:56 | MHC.PT.DC ---
[facility] [place] [facility] [place] [facility] [place] Office [address] Kaity Singh [address] [phone] F: [phone] F: [phone] F: [phone] F: [phone] Physical Therapy Discharge Report Diagnosis: other tear of medial meniscus R knee 01/15/25 Date of Surgery: 01/15/25 Date of Evaluation: 02/16/25 Date of Discharge: 04/05/25 Treatments to Date: 11 Cancellations to Date: 0 No Shows to Date: 0 Discharge Status: Achieved Goals Improved Function Independent with HEP Discharge Summary: We reviewed all exercises and pt shows good compliance with them as he needs no cueing and discusses how he has made his own step to practice on. At this time, he is apporpriate for d/c secondary to meeting goals, I with HEP, and improved LEFS 45/80 (IR 21/) Electronically signed by: Danielle Michel PT Please sign and return to therapist. Thank you for your referral.
== END 2025-04-05 08:56 | disposition home or self-care (01) ==
LOC: HO.PT 08:00
PROVIDERS: PCP Nurse Practitioner Family; Visit Provider Physician Assistant
DX: S83.241D Other tear of medial meniscus, current injury, right knee, subsequent encounter (principal)
CPT/HCPCS: 97110; 97112; 97161; 97530

== ENCOUNTER 2025-04-15 08:39 | Outpatient (AMB) | payer OTHER, SELFPAY ==
--- NOTE | 2025-04-15 08:39 | A.OFFVIS_ITS ---
Intake Visit Reasons: 3 mo fu Intake Note: patient presents today for: telehealth 3mo follow up urology medications: terazosin blood thinners: none US done: 04/02/25 Corporate Communications Intern Required: No Accompanied by: Self / Same As Patient Allergies codeine (Codeine) Adverse Reaction (Mild, Verified 04/15/25 08:40) NAUSEA & VOMITING oxycodone (From Percodan) Adverse Reaction (Mild, Verified 04/15/25 08:40) NAUSEA & VOMITING HPI Comments Details: Tino is a pleasant male. He is a patient of Dr. Kim. He seen for the following urologic conditions - lower urinary tract symptoms - erectile dysfunction Telemedicine Evaluation 15 min Consultation Protalex Malachi Video Three-month follow-up Transient does help during the day Still getting up and voiding 3-4 times A recent bladder ultrasound with 25 g prostate and complete bladder emptying Discussed trial of Advil PM Has insomnia Recommend office uroflow with cystoscopy 01/12 0.3 Lower urinary tract symptoms Primarily nocturia Has not used alpha blockers Will trial tadalafil PFSH Medical History Seborrheic keratosis Bilateral carpal tunnel syndrome Degenerative disc disease, lumbar Degenerative disc disease, cervical Back pain Umbilical hernia GERD (gastroesophageal reflux disease) Nocturia H/O multiple concussions Habitual snoring Murmur Myocardial infarction Depression Anxiety Hx of gastroesophageal reflux (GERD) Arthritis High cholesterol Surgical History Hx of abdominal surgery H/O eye surgery H/O wisdom tooth extraction Hx of umbilical hernia repair History of carpal tunnel surgery of left wrist History of carpal tunnel surgery of right wrist History of colonoscopy (~2014) Family History Mother HTN (hypertension) Hypercholesteremia Breast cancer Father HTN (hypertension) Hypercholesteremia Melanoma Cancer Brother Colon cancer Social History Housing: Other (mobile home) Housing Other:: mobile home Are you a primary career technology teacher to a significant other at home: No Do you presently have visiting nurse or other home services: No Comment: tolerable Patient Tobacco Use Status: Never used Tobacco e-Cigarette/Vaping Use: Never Used Second Hand Smoke Exposure: No service: No Current occupational status: employed 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 ) Vision needs: No Review of Systems Const All systems reviewed & are unremarkable except as noted in HPI and below Reports no additional complaints Resp Reports no additional complaints GI Reports no additional complaints Reports as per HPI Musc Reports no additional complaints Physical Exam Telemedicine evaluation Appropriate responses Regular breathing rate and rhythm HEENT Head: Yes normal to inspection Ears: hearing grossly normal bilaterally Eyes General: appearance normal, both eyes and all related structures Neck Neck: Yes normal visual inspection Chest Chest palpation & inspection: normal inspection of the chest Resp Effort & Inspection: normal respiratory effort and able to speak in complete sentences Telehealth Telehealth Telehealth Platform: Protalex Location of provider rendering services: practice address Location of patient: address on file Patient Identification confirmed using: Name, : Yes Telehealth method: video Patient verbally consented to treatment: Yes Patient verbally consented to billing insurance company: Yes Patient informed of any privacy concerns related to visit: Yes Minutes spent on Phone/Video with Pt.: 15 Assessment & Plan Assessment & Plan (1) BPH associated with nocturia: Code(s): N40.1 - Benign prostatic hyperplasia with lower urinary tract symptoms; R35.1 - Nocturia Category: Medical (2) Erectile dysfunction: Code(s): N52.9 - Male erectile dysfunction, unspecified Category: Medical Qualifiers: Erectile dysfunction type: vasculogenic Vasculogenic erectile dysfunction type: due to arterial insufficiency Qualified Code(s): N52.01 - Erectile dysfunction due to arterial insufficiency (3) Nocturia more than twice per night: Code(s): R35.1 - Nocturia Category: Medical (4) Urinary urgency: Code(s): R39.15 - Urgency of urination Category: Medical Plan Follow-up office uroflow with cystoscopy Patient Instructions: This note is constructed using voice recognition software. While every effort has been made to ensure accuracy transmitter engineer in charge errors may have been included. Imaging studies, laboratory and physical exam results were discussed and reviewed in detail. No major barriers to patient understanding were identified. An opportunity to ask questions regarding the treatment plan was provided. All questions were answered. The patient expressed understanding and agreement with the above treatment plan. The patient is aware they should contact our office by phone for worsening of their current condition or the appearance of new urologic symptoms. Compliance is encouraged with any medications and followup testing that is ordered. It is a privilege to participate in the urologic care of your patient. If you have any questions or concerns regarding treatment for the above conditions, or other urologic issues, please do not hesitate to contact me. The office telephone contact is [phone]. Sincerely, Dr Prasanna Stephenson MD, [facility] - Urology Compassionate Specialist Care for the Genitourinary System Coding Level of Care Code Tele Est Pt Level 3 (01113) Complex EM visit Add On G2211 Diagnoses BPH associated with nocturia N40.1; R35.1 Erectile dysfunction due to arterial insufficiency N52.01 Erectile dysfunction type: vasculogenic Vasculogenic erectile dysfunction type: due to arterial insufficiency Nocturia more than twice per night R35.1 Urinary urgency R39.15
== END 2025-04-15 09:22 | disposition home or self-care (01) ==
LOC: HO.HUSH 08:39
PROVIDERS: PCP Nurse Practitioner Family; Visit Provider Urology
DX: N40.1 Benign prostatic hyperplasia with lower urinary tract symptoms (principal); R35.1 Nocturia; N52.01 Erectile dysfunction due to arterial insufficiency; R39.15 Urgency of urination
CPT/HCPCS: 99213

== ENCOUNTER 2025-04-30 09:18 | Outpatient (AMB) | payer OTHER, SELFPAY ==
--- NOTE | 2025-04-30 09:40 | A.OFFVIS_ITS ---
Vital Signs 04/30/25 09:43 Height 5 ft 8 in Weight 198 lb 6.656 oz BMI 30.2 BP 130/80 Blood Pressure Location Lt brachial Position Sitting Intake Visit Reasons: excision raised birthmark chest Intake Note: Patient is seen for office procedure Excision lesion of chest. Pt c/o: no changes here for lesion removal s/p: 05/10/25 @ 3:30 pm Business Process Consultant Required: No Accompanied by: Family/Other Allergies codeine (Codeine) Adverse Reaction (Mild, Verified 04/30/25 09:40) NAUSEA & VOMITING oxycodone (From Percodan) Adverse Reaction (Mild, Verified 04/30/25 09:40) NAUSEA & VOMITING HPI Comments Details: Patient returns today for excision of a very angioma of the anterior chest. He denies any new symptoms and generally feels well. [facility] Medical History Seborrheic keratosis Bilateral carpal tunnel syndrome Degenerative disc disease, lumbar Degenerative disc disease, cervical Back pain Umbilical hernia GERD (gastroesophageal reflux disease) Nocturia H/O multiple concussions Habitual snoring Murmur Myocardial infarction Depression Anxiety Hx of gastroesophageal reflux (GERD) Arthritis High cholesterol Surgical History Hx of abdominal surgery H/O eye surgery H/O wisdom tooth extraction Hx of umbilical hernia repair History of carpal tunnel surgery of left wrist History of carpal tunnel surgery of right wrist History of colonoscopy (~2014) Family History Mother HTN (hypertension) Hypercholesteremia Breast cancer Father HTN (hypertension) Hypercholesteremia Melanoma Cancer Brother Colon cancer Social History Housing: Other (mobile home) Housing Other:: mobile home Are you a primary intensive care ambulance paramedic to a significant other at home: No Do you presently have visiting nurse or other home services: No Comment: tolerable Patient Tobacco Use Status: Never used Tobacco e-Cigarette/Vaping Use: Never Used Second Hand Smoke Exposure: No service: No Current occupational status: employed 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 ) Vision needs: No Physical Exam Chest Other: 5 mm luna angioma anterior chest as previously noted Office Procedures Excision Details: Preoperative diagnosis: Marquez angioma anterior chest Postoperative diagnosis: Same Procedure: Excision of marquez angioma anterior chest Surgeon: Demetrio Garrido MD Ingot Caster: None Anesthesia: Lidocaine 1% with epinephrine Indications for procedure: 64-year-old male patient presenting with an enlarging marquez angioma of the anterior chest presenting today for excision Operative findings: 0.5 cm marquez angioma anterior chest Specimen: Marquez angioma anterior chest Estimated blood loss: 2 mL Complications: None Procedure details: Patient was brought to the procedure room and placed in a supine position. The site of surgery was confirmed by the patient in the anterior chest. After assuring informed consent the skin was prepped with Betadine and draped in a sterile fashion. Local anesthesia was infiltrated circumferentially around the lesion. An elliptical incision oriented transversely was then created with a scalpel and carried out through subcutaneous tissue and around the angioma wall. Lesion was passed off the table and sent to pathology for further examination. Pressure was held to maintain hemostasis. Skin was then closed using interrupted 3-0 nylon sutures. Sterile dressings consisting of a 2 x 2 gauze and Tegaderm were then applied. The patient tolerated the procedure well. He was discharged in stable condition. 83827-[id number]/arms/legs < 0.5cm Procedure code (CPT) selection complete Assessment & Plan Assessment & Plan (1) Marquez angioma: Code(s): D18.01 - Hemangioma of skin and subcutaneous tissue Category: Medical Plan 64-year-old male patient returning for excision of a marquez angioma of the anterior chest. He tolerated the procedure well and will return in 1 week for suture removal. Orders: Orders Surgical Today D18.01 - Hemangioma of skin and subcutaneous tissue Coding Level of Care Code Procedure Only Diagnoses Marquez angioma D18.01 CPT Codes Trunk/Arms/Legs - CPT: 35155-xpqhk/arms/legs < 0.5cm ([id number])
[2025-04-30 09:43] VITALS: BP 130/80; BMI 30.2
== END 2025-04-30 09:57 | disposition home or self-care (01) ==
LOC: HO.HGS 09:19
PROVIDERS: PCP Nurse Practitioner Family; Visit Provider Surgery
DX: D18.01 Hemangioma of skin and subcutaneous tissue (principal)
CPT/HCPCS: 11400

== ENCOUNTER 2025-04-30 09:18 | Outpatient (REF) | payer OTHER, SELFPAY | END 2025-04-30 09:19 | disposition home or self-care (01) | LOC: HO.LNP 09:18 | PROVIDERS: PCP Nurse Practitioner Family; Visit Provider Surgery | DX: D18.01 Hemangioma of skin and subcutaneous tissue (principal) | CPT/HCPCS: 11400; 88304 ==

== ENCOUNTER → 2025-05-14 09:26 | Outpatient (BNVA) | payer OTHER, SELFPAY | PROVIDERS: PCP Nurse Practitioner Family; Visit Provider Surgery | DX: Z48.02 Encounter for removal of sutures (principal); Q82.5 Congenital non-neoplastic nevus | CPT/HCPCS: 99211 ==

== ENCOUNTER 2025-05-20 08:24 | Outpatient (AMB) | payer OTHER, SELFPAY ==
--- NOTE | 2025-05-20 08:49 | MHC.OFFVIS ---
Intake Visit Reasons: Uroflow/cysto Intake Note: patient presents today for UROFLOW CYstoscopy urology medications: terazosin blood thinners: none PVR :53 mls Import Specialist Required: No Accompanied by: Self / Same As Patient Allergies codeine (Codeine) Adverse Reaction (Mild, Verified 06/08/25 08:40) NAUSEA & VOMITING oxycodone (From Percodan) Adverse Reaction (Mild, Verified 06/08/25 08:40) NAUSEA & VOMITING HPI Comments Details: Tino is a pleasant male. He is a patient of Dr. Kim. He seen for the following urologic conditions - lower urinary tract symptoms - erectile dysfunction Uroflow Q max 13 voided volume 75 Cystoscopy with trabeculation grade 2 and mild cellules Trial oxybutynin Still getting up and voiding 3-4 times A recent bladder ultrasound with 25 g prostate and complete bladder emptying Discussed trial of Advil PM Has insomnia 01/12 0.3 Lower urinary tract symptoms Primarily nocturia Has not used alpha blockers Will trial tadalafil PFSH Medical History Seborrheic keratosis Bilateral carpal tunnel syndrome Degenerative disc disease, lumbar Degenerative disc disease, cervical Back pain Umbilical hernia GERD (gastroesophageal reflux disease) Nocturia H/O multiple concussions Habitual snoring Murmur Myocardial infarction Depression Anxiety Hx of gastroesophageal reflux (GERD) Arthritis High cholesterol Surgical History Hx of abdominal surgery H/O eye surgery H/O wisdom tooth extraction Hx of umbilical hernia repair History of carpal tunnel surgery of left wrist History of carpal tunnel surgery of right wrist History of colonoscopy (~2014) Family History Mother HTN (hypertension) Hypercholesteremia Breast cancer Father HTN (hypertension) Hypercholesteremia Melanoma Cancer Brother Colon cancer Social History Housing: Other (mobile home) Housing Other:: mobile home Are you a primary healthcare market consultant to a significant other at home: No Do you presently have visiting nurse or other home services: No Comment: tolerable Patient Tobacco Use Status: Never used Tobacco e-Cigarette/Vaping Use: Never Used Second Hand Smoke Exposure: No service: No Current occupational status: employed 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 ) Vision needs: No Review of Systems Const Denies chills and Denies fever(s) Card Reports no additional complaints and Denies syncope Resp Denies cough GI Denies abdominal pain and Denies heartburn Reports as per HPI and Denies change in libido Neuro Denies syncope Psych Denies change in libido Endo Denies change in libido Physical Exam Const General: cooperative, healthy appearing, comfortable and no acute distress Orientation/consciousness: patient oriented x3 HEENT Face and sinus: Yes normal facial exam Mouth: moist mucous membranes Neck Neck: Yes normal visual inspection, Yes full ROM and Yes trachea midline Chest Chest palpation & inspection: normal inspection of the chest Resp Effort & Inspection: normal respiratory effort, able to speak in complete sentences and no respiratory distress GI Inspection: Yes normal to inspection Back/Spine/Pelvis Cervical Spine: normal cervical lordosis Thoracic/Lumbar Spine: thoracic and lumbar spine normal to inspection Skin General skin exam: no rashes or lesions noted Neuro General: patient oriented x3, gait normal, tone normal and moves all extremities Extrem General: Yes normal to inspection and Yes capillary refill normal Office Procedures Cystoscopy Consent Discussed risk and benefit or proposed procedure with the patient. Information consent for procedure given to the patient. Discussed technical aspects, risks, benefits and alternatives in full. Addressed all of the patient's questions and concerns regarding the procedure. The patient demonstrated knowledge and understanding. They wish to proceed with this procedure. Preparation The patient was prepped in the usual manner. A dry ice maker was present and in the room. Genitalia was prepped with betadine solution in a sterile manner. Lidocaine Jelly 2% was placed into the urethra and 16Fr flexible Olympus cystoscope was inserted into the meatus after adequate lubrication. Procedure Consent confirmed Cystoscopy performed using a disposable Urovue digital 16 English cystoscope. Meatus circumcised Urethra anterior and posterior urethra normal Prostatic Urethra unremarkable Bladder examination with retroflexion of cystoscope Bladder Orifices normal shape and position Bladder Capacity Normal Trabeculations grade 2 Cellule Formation mild Diverticulum Formation None Mucosal Erythema None Bladder Tumor None 39032-Lhxxhmmtrs DISPOSABLE SCOPE URO-G FLEXIBLE SCOPE Procedure code (CPT) selection complete Post Void Residual Post Residual Void Post Void Residual (PVR): 53 61403-Jpmr Void Residual by ultrasound Office Meds lidocaine HCl 2 % mucosal jelly in applicator Performing Provider: Prasanna Stephenson MD Performing Location: [facility] Administered by: Bobby Reyna LPN on 05/20/25 08:52 Dose Route Admin Location Dispensed Lot Number Expiration Date NDC Inspector Aluminum Boat 10 mL intra-urethral 10 mL nitrofurantoin monohydrate/macrocrystals 100 mg capsule Performing Provider: Prasanna Stephenson MD Performing Location: [facility] Administered by: Bobby Reyna LPN on 05/20/25 08:52 Dose Route Admin Location Dispensed Lot Number Expiration Date NDC Inspector Aluminum Boat 100 mg PO 1 cap Assessment & Plan Assessment & Plan (1) Erectile dysfunction: Code(s): N52.9 - Male erectile dysfunction, unspecified Category: Medical Qualifiers: Erectile dysfunction type: vasculogenic Vasculogenic erectile dysfunction type: due to arterial insufficiency Qualified Code(s): N52.01 - Erectile dysfunction due to arterial insufficiency (2) Nocturia more than twice per night: Code(s): R35.1 - Nocturia Category: Medical (3) BPH associated with nocturia: Code(s): N40.1 - Benign prostatic hyperplasia with lower urinary tract symptoms; R35.1 - Nocturia Category: Medical Plan Trial oxybutynin Orders: Orders AMB Cystoscopy 05/20/25 R39.15 - Urgency of urination, N40.1 - Benign prostatic hyperplasia with lower urinary tract symptoms, R35.1 - Nocturia Medications: New oxybutynin chloride ER 5 mg PO DAILY 30 tabs 1RF 30 days R39.15 - Urgency of urination Patient Instructions: This note is constructed using voice recognition software. While every effort has been made to ensure accuracy welder repair errors may have been included. Imaging studies, laboratory and physical exam results were discussed and reviewed in detail. No major barriers to patient understanding were identified. An opportunity to ask questions regarding the treatment plan was provided. All questions were answered. The patient expressed understanding and agreement with the above treatment plan. The patient is aware they should contact our office by phone for worsening of their current condition or the appearance of new urologic symptoms. Compliance is encouraged with any medications and followup testing that is ordered. It is a privilege to participate in the urologic care of your patient. If you have any questions or concerns regarding treatment for the above conditions, or other urologic issues, please do not hesitate to contact me. The office telephone contact is [phone]. Sincerely, Dr Prasanna Stephenson MD, [facility] - Urology Compassionate Specialist Care for the Genitourinary System Coding Level of Care Code Est Pt Level 4 (32085) Complex EM visit Add On G2211 Diagnoses Erectile dysfunction due to arterial insufficiency N52.01 Erectile dysfunction type: vasculogenic Vasculogenic erectile dysfunction type: due to arterial insufficiency Nocturia more than twice per night R35.1 BPH associated with nocturia N40.1; R35.1 CPT Codes Cystoscopy - CPT: 28866-Gjpqyvbtgo ([id number]) Post Residual Void - PVR CPT Code: 48387-Gwwu Void Residual by ultrasound ([id number])
== END 2025-05-20 09:13 | disposition home or self-care (01) ==
LOC: HO.HUSH 08:25
PROVIDERS: PCP Nurse Practitioner Family; Visit Provider Urology
DX: N52.01 Erectile dysfunction due to arterial insufficiency (principal); N40.1 Benign prostatic hyperplasia with lower urinary tract symptoms; R35.1 Nocturia
CPT/HCPCS: 52000; 99214

== ENCOUNTER → 2025-05-20 08:24 | Outpatient (BNVA) | payer OTHER, SELFPAY | PROVIDERS: PCP Nurse Practitioner Family; Visit Provider Urology | DX: N52.01 Erectile dysfunction due to arterial insufficiency (principal); N40.1 Benign prostatic hyperplasia with lower urinary tract symptoms; R35.1 Nocturia | CPT/HCPCS: 51798; 52000; 99212 ==

== ENCOUNTER 2025-06-08 08:28 | Outpatient (REF) | payer OTHER, SELFPAY ==
[2025-06-08 12:06] LABS: Hematocrit 48.6 % (42.0-52.0); Hemoglobin 15.9 g/dl (14.0-18.0); Mean Corpuscular HGB Conc 32.7 g/dl (31.0-36.0); Mean Corpuscular Hemoglobin 30.5 pg (27.0-33.0); Mean Corpuscular Volume 93.3 fL (80.0-98.0); NRBC Abs Auto 0.000 X10*3/uL (0.0-0.012); NRBC Pct Auto 0.0 /100WBC (0.0-0.2); Platelet Count 242 X10*3/uL (160-400); Red Blood Count 5.21 X10*6/uL (4.60-5.80); White Blood Count 5.8 X10*3/uL (4.8-10.8)
[2025-06-08 12:45] LABS: Cholesterol 226 mg/dL (<200); HDL Cholesterol 58 mg/dL (>40); Triglycerides 109 mg/dL (<150)
[2025-06-13 11:17] LABS: Testosterone, Free 77.8 pg/mL (35.0-155.0)
== END 2025-06-08 08:29 | disposition home or self-care (01) ==
LOC: HO.WFDLDS 08:28
PROVIDERS: PCP Nurse Practitioner Family; Visit Provider Nurse Practitioner Family
DX: E78.2 Mixed hyperlipidemia (principal); R53.83 Other fatigue; E66.9 Obesity, unspecified; R06.81 Apnea, not elsewhere classified; N40.1 Benign prostatic hyperplasia with lower urinary tract symptoms; R35.1 Nocturia; N52.01 Erectile dysfunction due to arterial insufficiency; Z79.899 Other long term (current) drug therapy; Z68.30 Body mass index [BMI] 30.0-30.9, adult
CPT/HCPCS: 36415; 80061; 84402; 84403; 85027; 96127; 99212

== ENCOUNTER 2025-06-08 08:28 | Outpatient (AMB) | payer OTHER, SELFPAY ==
--- NOTE | 2025-06-08 08:31 | A.OFFPC_ITS ---
Vital Signs 06/08/25 08:36 Height 5 ft 8 in Weight 200 lb 6 oz BMI 30.5 BP 134/72 Blood Pressure Location Lt brachial Position Sitting Respiration 12 Pulse 69 Pulse Source Pulse Oximeter Temp 97.6 F Temp Source Oral Pulse Oximetry (%) 97 Oxygen Delivery Method Room Air Intake Visit Reasons: 6 mo HLD Intake Note: Follow up HLD. Patient c/o stopping breathing when sleeping. Patient needs med refill on 90 days supply. Cash Applications Analyst Required: No Allergies codeine (Codeine) Adverse Reaction (Mild, Verified 06/08/25 08:40) NAUSEA & VOMITING oxycodone (From Percodan) Adverse Reaction (Mild, Verified 06/08/25 08:40) NAUSEA & VOMITING Medication List - Last Reconciled 06/08/25 by GABRIEL Feldman- multivitamin 1 tab PO DAILY oxybutynin chloride ER 5 mg PO DAILY 30 days pantoprazole 40 mg PO QAM tadalafil (Cialis) 20 mg PO DAILY PRN terazosin 5 mg PO BEDTIME 30 days Tobacco use date assessed: 06/08/25 Dental Screening Dental Screen Date: 06/08/25 Did you have a dental visit in the last 12 months?: Yes Did you have a dental problem in the last 6 months where you did not have access to dental care?: No Was dental information given to patient?: Patient has dentist HPI HPI Comments History of Present Illness Details 64 y/o M OA, erectile dysfunction, GERD, BPH, MDD, ASHWIN, HLD, PVD , Seborrheic keratosis, family hx colon ca (dad and brother), cervical DJD s/p excision Seborrheic keratosis, inflamed C Gen surgeon 04/2024, umbilical hernia repair, CTS bilat, R shoulder surgery, eye surgery , Rt knee medial meniscus tear repair Family hx: has 4 children, 1 of methadone overdose, Dad and bro with CRC Mom HTN HLD Breast ca Health Maintenance: Colon 2024 PSA 12/2023 WNL Tdap - 11/2023, Flu 05/2025 Pneumonia: recommend to start series @ pharmacy 06/08/25 Specialists: Optho cannot afford more medical bills; aware overdue. Hx of blindness Ortho Uro GI Neuro History of Present Illness The patient is a 64-year-old male presenting for a follow-up on hyperlipidemia. Hyperlipidemia: - The patient is due for repeat choleste rol labs but has not yet completed them. - He was previously prescribed ezetimibe but stopped it due to personal prefer ence and is not currently on any lipid-lowering medications. Suspected Obstructive Sleep Apnea: - The patient has a 10-year history of c hronic exhaustion, feeling tired even upon waking. - His reports that he stops breathi ng during sleep. - A previous in-lab sleep study years ag o was inconclusive because he was unable to sleep during the test. GI sx: - He reports a two-week history of an in termittent stomach issue characterized by upper abdominal upset and loss of appetite. - Symptoms last for a few hours, resolve , and then recur at night. - He denies any associated nausea or vom iting. - For the past month, he has been using a CBD product containing 5 mg of THC to help with sleep. Erectile Dysfunction: - The patient's erectile dysfunction is managed by his urologist, Dr. Stephenson. - He was previously on tadalafil 5 mg [facility], but it was discontinued about three months ago as it was not effective. - He is currently prescribed tadalafil 2 0 mg as needed and has a 30-day supply, though he prefers a 90-day supply. Urinary Hesitancy and Nocturia: - The patient reports waking to urinate around 3:20 AM and then hourly thereafter. - He experiences an urge to urinate but has difficulty voiding and must force it out. - He is being treated by Dr. Stephenson for t hese symptoms and mentions a potential future procedure to improve drainage. Past Medical History: - He reports a history of pneumonia in [facility] of the last two years. - He has undergone multiple surgeries si august, including a knee surgery and a colonoscopy. Past Medical History - Hyperlipidemia - History of pneumonia, with episodes in the last two consecutive years. - History of knee surgery. - History of colonoscopy. Review of Systems - Constitutional: Reports chronic exhaus tion for 10 years. - Respiratory: Reports his has obse rved him stop breathing during sleep. - Gastrointestinal: Reports intermittent upper abdominal upset and loss of appetite for the past two weeks. Denies nausea or vomiting. - Genitourinary: Reports nocturia, wakin g hourly after 3:20 AM, and urinary hesitancy. - Musculoskeletal: Reports persistent pa in in his knee post-surgery. Physical Exam General: Well developed, well nourished, in no acute distress. Appears stated age. Head: Normocephalic, atraumatic. Eyes: Pupils are equal, round and reactive to light and accommodation. Conjunctivae are clear. Scleras anicteric Lungs: Clear to auscultation bilaterally. No rales, rhonchi or wheeze noted. Good air flow in all bustamante. Heart: Regular rate and rhythm. No murmurs, click, rubs or gallops are noted. Abdomen: Bowel sounds present in all quadrants. The abdomen is soft, nontender, with no masses or organomegaly noted. No hernias are noted. Musculoskeletal: Joints are nontender, without swelling, redness, or effusions. Pulses: Peripheral pulses are equal and palpable bilaterally. Extremities: No clubbing, cyanosis nor edema is noted. Psych: Mood and affect appropriate. Results Pending Medical Decision Making The patient is a 64-year-old male who presents for follow-up of hyperlipidemia, but his primary concern is a 10-year history of chronic exhaustion. His report of fatigue, combined with his 's observation of apneic episodes during sleep, is highly suggestive of obstructive sleep apnea. A previous in-lab sleep study was inconclusive, so a home sleep study is warranted for diagnosis. I will also check CBC and T levels to eval fatigue. For his hyperlipidemia, the patient is currently unmedicated by choice; therefore, repeat labs including a lipid panel and a CBC are indicated to re- evaluate his status and rule out anemia as a contributor to his fatigue. His new onset of intermittent upper abdominal upset, which has been present for two weeks, is likely due to a viral illness, though the recent initiation of a CBD/THC product could be a contributing factor. His physical exam was reassuring with a non-tender abdomen, and he was counseled to monitor these symptoms. Health maintenance was addressed, including his recent influenza and COVID-19 vaccinations. Given his age and history of recurrent pneumonia, he was strongly advised to receive the pneumococcal vaccine series, which he can obtain at his pharmacy. Management of his erectile dysfunction and urinary symptoms remains with his urologist, and he was instructed on how to message his specialist to request a 90-day supply of his tadalafil medication. Plan 1. Hyperlipidemia - An order will be placed for a lipid pa winter and CBC, as the patient is due for labs. - The patient is currently not on any me dication for his cholesterol by personal preference. 2. Suspected Obstructive Sleep Apnea - An order will be placed for a home sle ep study to investigate chronic exhaustion and reported apneic episodes. - The patient will follow up to review t he results once the study is complete. 3.Stomach Sx: - The patient was advised that his stoma ch upset could be a viral illness or a side effect of his new CBD supplement. - He was instructed to monitor his sympt oms as the abdominal exam was benign. 4. Erectile Dysfunction - Will continue management under his uro logist, Dr. Stephenson. - Advised the patient to message Dr. Campbell grimes via the patient portal to request a 90-day prescription for his tadalafil 20 mg for cost-effectiveness. 5. Urinary Hesitancy And Nocturia - Will continue management under his uro logist, Dr. Stephenson. - The patient was advised to contact his urologist for a sooner appointment if his urinary symptoms worsen before his scheduled visit in August. 6. Preventative Care: Vaccination - The patient confirmed he recently rece ived his flu and COVID-19 vaccines. - Recommended the patient receive the pn eumococcal vaccine series, which he can obtain from a pharmacy, noting a one-time PCV20 option may be available. Patient Instructions - Go to the lab for blood work today to check your cholesterol and blood counts. You will receive the results through the patient portal. - You will get a call to set up an appoi ntment to vegetable picker a home sleep study machine. You will use the machine at home and then return it. My office will then call you to schedule an appointment to go over the results. - Please go to your pharmacy to get the pneumonia vaccine. There is a new version that is a single shot. - Send a message to Dr. Stephenson through [facility] portal to ask for a 90-day supply of your medication. - Continue to follow up with Dr. Sachin hernandez or your urination problems. If they get worse, contact his office to see if you can be seen sooner than your August appointment. - Be aware that the CBD product you are using can cause stomach upset. - Stop at the front end mechanic to schedule you r next annual physical exam in six months. Consent Patient was informed and verbally consented to the use of an ambient scribe for clinic note documentation during this visit. Total time spent caring for the patient today was 30 minutes. This includes time spent before the visit reviewing the chart, time spent during the visit, and time spent after the visit on documentation, reviewing laboratory results, diagnostic imaging, medications, performing a medically necessary evaluation, counseling on diagnoses, care coordination, ordering appropriate tests, ordering appropriate medications, review of tests performed by other providers, reporting test results with the patient, communication with other healthcare providers. [facility] Medical History Seborrheic keratosis Bilateral carpal tunnel syndrome Degenerative disc disease, lumbar Degenerative disc disease, cervical Back pain Umbilical hernia GERD (gastroesophageal reflux disease) Nocturia H/O multiple concussions Habitual snoring Murmur Myocardial infarction Depression Anxiety Hx of gastroesophageal reflux (GERD) Arthritis High cholesterol Surgical History Hx of abdominal surgery H/O eye surgery H/O wisdom tooth extraction Hx of umbilical hernia repair History of carpal tunnel surgery of left wrist History of carpal tunnel surgery of right wrist History of colonoscopy (~2014) Family History Mother HTN (hypertension) Hypercholesteremia Breast cancer Father HTN (hypertension) Hypercholesteremia Melanoma Cancer Brother Colon cancer Social History Housing: Other (mobile home) Housing Other:: mobile home Are you a primary health careers instructor to a significant other at home: No Do you presently have visiting nurse or other home services: No Comment: tolerable Patient Tobacco Use Status: Never used Tobacco e-Cigarette/Vaping Use: Never Used Second Hand Smoke Exposure: No service: No Current occupational status: employed 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 ) Vision needs: No Questionnaire PHQ-9 Over the last 2 weeks, how often have you been bothered by any of the following problems? 1. Little interest or pleasure in doing things: not at all 2. Feeling down, depressed, or hopeless: not at all 3. Trouble falling or staying asleep, or sleeping too much: not at all 4. Feeling tired or having little energy: not at all 5. Poor appetite or overeating: not at all 6. Feeling bad about yourself - or that you are a failure or have let yourself or your family down: not at all 7. Trouble concentrating on things, such as reading the newspaper or watching television: not at all 8. Moving or speaking so slowly that other people could have noticed. Or the opposite - being so fidgety or restless that you have been moving around a lot more than usual: not at all 9. Thoughts that you would be better off or of hurting yourself in some way: not at all Total score: 0 Depression Screening Interpretation: Negative Depression Screening Done: Yes 54216 - PHQ-9 Billing: Yes Source: Developed by Drs. Melchor Bhatia, Zayda Rodarte, Brandon Montoya and colleagues, with an educational sal from [email or web address]. Thrive Questionnaire Date Thrive assessed: 06/08/25 I am a: Patient What is your living situation today?: I have a steady place to live Within the past 12 months, did the food you bought not last and you didn't have the money to get more?: Never true Within the past 12 months, did you worry whether your food would run out before you got money to buy more?: Sometimes True Do you have trouble paying for medicines?: No Do you have trouble getting transportation to medical appointments?: No Do you have trouble paying your heating and electricity bill?: Yes Do you have trouble taking care of your child, family member or friend?: No Do you have trouble with day-to-day activities such as bathing, preparing meals, shopping, managing finances, etc.?: No Are you currently unemployed and looking for a job?: I choose not to answer this question Are you interested in more education?: No Please select the resources that you would like help with: None Currently or been in a relationship where the following occur: I choose not to answer THRIVE Score: 2 ASHWIN-7 AMB Questionnaire ASHWIN-7 Date ASHWIN - 7 assessed: 06/08/25 Feeling nervous, anxious, or on edge: 0 = Not at all Not being able to stop or control worryin = Not at all Worrying too much about different things: 0 = Not at all Trouble relaxin = Not at all Being so restless that it is hard to sit still: 0 = Not at all Becoming easily annoyed or irritable: 0 = Not at all Feeling afraid as if something awful might happen: 0 = Not at all Total ASHWIN-7 score (0-4 normal; 5-9 mild; 10-14 moderate; 15-21 severe): 0 Source: Developed by Drs. Melchor Bhatia, Zayda Rodarte, Brandon Montoya and colleagues, with an educational sal from [email or web address]. ASHWIN-7 Assessment Billing ASHWIN-7 Assessment Tool: ASHWIN-7 Assessment 90677 Physical exam (Primary Care) Vital Signs: Last Vital Signs Temp 97.6 F 06/08/25 08:36 Pulse 69 06/08/25 08:36 Resp 12 06/08/25 08:36 BP 134/72 06/08/25 08:36 Pulse Ox 97 06/08/25 08:36 Oxygen Delivery Method Room Air 06/08/25 08:36 BMI result Body Mass Index 30.5 Tobacco/Smoking Status: Tobacco use Status Tobacco use date assessed 06/08/25 06/08/25 08:37 Patient Tobacco Use Status Never used Tobacco 06/08/25 08:37 e-Cigarette/Vaping Use Never Used 06/08/25 08:37 PHQ-9: PHQ-9 Score PHQ-9: Total score 0 06/08/25 08:37 Depression Screening Interpretation: Negative Thrive Assessment: Date of Thrive Assessment Date Thrive assessed 06/08/25 06/08/25 08:37 Currently or been in a relationship where the following occur: I choose not to answer Coding Level of Care Code Est Pt Level 4 (37206) Complex EM visit Add On G2211 Diagnoses Obesity (BMI 30-39.9) E66.9 Witnessed episode of apnea R06.81 Fatigue, unspecified type R53.83 Fatigue type: unspecified BPH associated with nocturia N40.1; R35.1 Erectile dysfunction due to arterial insufficiency N52.01 Erectile dysfunction type: vasculogenic Vasculogenic erectile dysfunction type: due to arterial insufficiency Mixed hyperlipidemia E78.2 Hyperlipidemia type: mixed hyperlipidemia Additional Codes ASHWIN-7 Assessment Billing - ASHWIN-7 Assessment Tool: ASHWIN-7 Assessment 75961 ([id number]) PHQ-9 - 48887 - PHQ-9 Billing: Yes ([id number]) Assessment & Plan Assessment & Plan (1) Obesity (BMI 30-39.9): Code(s): E66.9 - Obesity, unspecified Category: Medical (2) Witnessed episode of apnea: Code(s): R06.81 - Apnea, not elsewhere classified Category: Medical (3) Fatigue: Code(s): R53.83 - Other fatigue Category: Medical Qualifiers: Fatigue type: unspecified Qualified Code(s): R53.83 - Other fatigue (4) BPH associated with nocturia: Code(s): N40.1 - Benign prostatic hyperplasia with lower urinary tract symptoms; R35.1 - Nocturia Category: Medical (5) Erectile dysfunction: Code(s): N52.9 - Male erectile dysfunction, unspecified Category: Medical Qualifiers: Erectile dysfunction type: vasculogenic Vasculogenic erectile dysfunction type: due to arterial insufficiency Qualified Code(s): N52.01 - Erectile dysfunction due to arterial insufficiency (6) Hyperlipidemia: Comment: LDL goal < 70 Code(s): E78.5 - Hyperlipidemia, unspecified Category: Medical Qualifiers: Hyperlipidemia type: mixed hyperlipidemia Qualified Code(s): E78.2 - Mixed hyperlipidemia Plan . Orders: Orders Testosterone, Free/Total Today R53.83 - Other fatigue Lipid Panel 06/07/25 E78.2 - Mixed hyperlipidemia RT home sleep study Today E66.9 - Obesity, unspecified, R06.81 - Apnea, not elsewhere classified, R06.83 - Snoring Complete Blood Count no Diff Today R53.83 - Other fatigue
[2025-06-08 08:36] VITALS: BP 134/72; PULSE 69; RESP 12; TEMP 36.4; O2SAT 97; BMI 30.5
== END 2025-06-08 08:55 | disposition home or self-care (01) ==
LOC: HO.HMCFM 08:29
PROVIDERS: PCP Nurse Practitioner Family; Visit Provider Nurse Practitioner Family
DX: E66.9 Obesity, unspecified (principal); R06.81 Apnea, not elsewhere classified; R53.83 Other fatigue; N40.1 Benign prostatic hyperplasia with lower urinary tract symptoms; R35.1 Nocturia; N52.01 Erectile dysfunction due to arterial insufficiency; E78.2 Mixed hyperlipidemia; Z68.30 Body mass index [BMI] 30.0-30.9, adult